=== PATIENT | male | born 1935 | race Caucasian/White ===

== ENCOUNTER 2016-11-24 06:21 | Emergency (ER) | payer OTHER ==
[~2016-11-24] VITALS: Ht 172.7 cm; Wt 112.9 kg
[~2016-11-24 06:21] MED LIST: ALLOPURINOL100 MG PO; AMLODIPINE BESYL5 MG PO; ARICEPT10 MG PO; ASPIRIN325 MG PO; ATIVAN1 MG PO; COLCRYS0.6 MG PO; DEPAKOTE ER250 MG PO; DOCUSATE SODIU100 MG PO; FISH OIL 1,0001 EAC2 PO; FLUOXETINE HCL20 MG PO; GLIPIZIDE10 MG PO; HUMULIN N100 UNIT/1 SUB-Q; IBUPROFEN400 MG PO; IPRAT-ALBUT 0.5-3 ML INH; LASIX40 MG PO; LEVOFLOXACIN250 MG PO; METOLAZONE2.5 MG PO; NEURONTIN400 MG PO; NORCO 5-325 TA1 EACH PO; OMEPRAZOLE20 M1 PO; POTASSIUM CHLO20 ME2 PO; PREDNISONE20 MG PO; SENNA8.6 MG PO; SYMBICORT 16010.2 GM INH; SYNTHROID200 MCG PO; TERAZOSIN HCL5 MG PO; TOPROL XL25 MG PO; VITAMIN C500 M1 PO; VITAMIN D1000 UNI1 PO; VITAMIN E1000 UNI1 PO; ZESTRIL20 MG PO; ZOCOR20 MG PO; ZOCOR80 MG PO
== END 2016-11-24 09:35 | disposition home or self-care (01) ==
LOC: ED 06:21
DX: M10.9 Gout, unspecified (principal); F03.90 Unspecified dementia, unspecified severity, without behavioral disturbance, psychotic disturbance, mood disturbance, and anxiety; Z86.73 Personal history of transient ischemic attack (TIA), and cerebral infarction without residual deficits; I10 Essential (primary) hypertension; E11.9 Type 2 diabetes mellitus without complications; Z87.01 Personal history of pneumonia (recurrent); J44.9 Chronic obstructive pulmonary disease, unspecified; F41.9 Anxiety disorder, unspecified; Z87.891 Personal history of nicotine dependence; Z95.1 Presence of aortocoronary bypass graft; Z79.52 Long term (current) use of systemic steroids; Z79.899 Other long term (current) drug therapy
CPT/HCPCS: 73110; 80053; 84550; 85025; 85651; 96361; 96374; 99283; J1885; J7040

== ENCOUNTER 2017-04-14 20:21 | Inpatient (IN) | payer MEDICARE ==
[~2017-04-14] VITALS: Ht 172.7 cm; Wt 100.9 kg
[~2017-04-14 20:21] MED LIST changes: +K-TAB10 MEQ PO; -OMEPRAZOLE20 M1 PO; +OMEPRAZOLE20 MG PO; -POTASSIUM CHLO20 ME2 PO
--- NOTE | 2017-04-15 03:46 | NUR ---
PT ARRIVED TO ROOM 128 AT 0005. DULCE (X2) AT BEDSIDE. ORIENTED TO ROOM AND ADMISSION ASSESSMENT/HX COMPLETED. 20G IV PLACED IN LAC. IV ABX STARTED, 2 FLUID BOLUSES INFUSED. APARICIO CATHETER PLACED AND URINE SENT TO LAB. PT CURRENTLY ALERT AND ORIENTED, STATES 'I FEEL HUNGRY, THAT MUST BE A GOOD SIGN'. OFFERED BROTH, SUGARFREE PUDDING AND TEA. PT DEMONSTRATES USE OF CALL LIGHT.
--- NOTE | 2017-04-15 04:16 | NUR ---
PT MOSLTY SLEEPY, BUT WAKENS EASILY WHEN TOUCHED FOR ASSESSMENT. ATE PUDDING DRANK TEA EARLIER. UPON ADMISSION, HE DRANK COCOA SUGAR FREE WELL BROTH. CHOSES WATER WITHOUT ICE AT THIS TIME. COUGHING NON PRODUCTIVE OFF AND ON. CURRENT SATS 93 ON 8 L NC.
--- NOTE | 2017-04-15 05:00 | NUR ---
PT HOLLERED OUT "IS ANYONE OUT THERE", WANTED TO GET UP TO HAVE A BM. WITH THE ASSISTANCE OF 2 HE GOT UP. WAS UNSTEADY ON FEET, BUT DID NOT HAVE INCREASE IN RESPIRATIONS WHEN UP. DID NOT HAVE A BM, ASSISTED BACK TO BED. NO OTHER NEEDS AT THIS TIME.
--- NOTE | 2017-04-15 08:25 | NUR ---
BRUSHED PT DENTURES AND HE PLACED THEM BACK IN HIS MOUTH. PT ABLE TO WASH FACE WITH WARM WASH CLOTH. PT REQUESTED PANTS, ASSISTED TO GET PANTS ON, TWO PERSON ASSIST UP TO CHAIR. PT ORDERED BREAKFAST. COFFEE GIVEN. PT LATESHA MISS. RIOJAS IS AT THE BEDSIDE. PT DENIES PAIN, NAUSEA, AND SOB AT THIS TIME. PT IS ALERT AND ORIENTED X3, NOT ORIENTED TO YESTERDAY'S EVENTS THAT LED UP TO HIM BEING HOSPITALIZED. PT COOPERATIVE AND POLITE. VITALS WNL AT THIS TIME.
--- NOTE | 2017-04-15 08:57 | NUR ---
PT SITTING UP IN CHAIR EATING BREAKFAST. SPUTUM SAMPLE SENT TO LAB. PT ALERT AND ORIENTED X3 AT THIS TIME. PT STATES "I'M JUST WORKING ON MY BREAKFAST".
--- NOTE | 2017-04-15 09:59 | NUR ---
IV SITES INTACT, NO REDNESS OR SWELLING NOTED, FLUSH EASILY, PT DENIES PAIN AT EITHER SITE. PT CURRENTLY IN BED, WAITING FOR TRACING LATHE SET UP OPERATOR TO ARRIVE. PT DENIES PAIN, NAUSEA, AND SOB. VITALS WNL. PT THOUGHT HE WAS IN THE HOSPITAL IN [place], HOWEVER REMEMBERS . PT AGREES TO A SHOWER LATER TODAY.
--- NOTE | 2017-04-15 11:12 | NUR ---
PT UP TO TOILET, HAD SMALL LIQUID STOOL.
--- NOTE | 2017-04-15 12:00 | NUR ---
PT TAKEN TO SHOWER VIA SHOWER CHAIR. FULL SHOWER, SHAMPOO, TAE CARE AND SKIN CARE DONE. PT BROUGHT BACK TO ROOM, LOTION APPLIED TO LOWER LEGS, ASSISTED PT TO SHAVE FACE, PT ABLE TO COMB OWN HAIR. PT IN CLEAN GOWN AND DEPENDS. APARICIO CATH IN PLACE. PT ASSISTED TO CHAIR. VITALS WNL. LINENS ON BED CHANGED. LUNCH ORDERED FOR PT. PT DENIES NAUSEA, PAIN, AND SOB. PT STATES "I FEEL LIKE A NEW MAN".
--- NOTE | 2017-04-15 13:09 | NUR ---
IV SITES INTACT, NO REDNESS OR SWELLING NOTED, FLUIDS INFUSE EASILY, PT DENIES PAIN WITH FLUSH. PT AMBULATED TO TOILET WITH STANDBY ASSIST AND WALKER. PT THEN AMBULATED BACK TO BED. PT DENIES PAIN, NAUSEA, AND SOB AT THIS TIME. PT ABLE TO EAT 80% OF HIS LUNCH. VITALS WNL.
--- NOTE | 2017-04-15 14:05 | NUR ---
CAREGIVER/GRANDAUGHTER AT THE BEDSIDE AT THIS TIME. CHERRY PIZANO [facility] PLANNING DISCUSSING OPTIONS WITH PT AND FAMILY.
--- NOTE | 2017-04-15 14:09 | NUR ---
pt up ambulating to the toilet with walker and standby assist. pt alert and oriented x3. pt unable to have a BM. pt abulated back to chair. vitals wnl at this time.
--- NOTE | 2017-04-15 15:10 | NUR ---
PT BACK TO BED WITH ASSISTANCE OF CAREGIVER. PT DENIES PAIN, NAUSEA, AND SOB AT THIS TIME. PT DENIES NEEDS AT THIS TIME.
--- NOTE | 2017-04-15 16:12 | NUR ---
IV SITES INTACT, NO REDNESS OR SWELLING NOTED, PT DENIES PAIN WITH FLUSH OR INFUSION OF FLUID.
--- NOTE | 2017-04-15 16:17 | NUR ---
pt up to chair from bed with one person standby assist and walker. pt denies pain, nausea, and sob. pt alert and oriented. pt gave order for dinner. vitals wnl at this time.
--- NOTE | 2017-04-15 17:29 | EKG ---
[facility] [address] [place] [address] Signed Sinus rhythm with sinus arrhythmia with occasional premature ventricular complexes Incomplete left bundle branch block Nonspecific ST and T wave abnormality Prolonged QT Abnormal ECG When compared with ECG of 27-NOV-2015 12:42, Nonspecific T wave abnormality, worse in Inferior leads T wave inversion now evident in Lateral leads Confirmed by TAMMI DAVIS MD ([id number]) on 04/15/2017 5:29:41 PM Electronically Signed By: TAMMI DAVIS MD 04/15/17 1729 PATIENT NAME: ROSY CERON Electrocardiogram DATE OF : 31 PHYSICIAN: TAMMI DAVIS MD REPORT #: [id number] REPORT IS CONFIDENTIAL AND NOT TO BE RELEASED WITHOUT AUTHORIZATION
--- NOTE | 2017-04-15 17:45 | NUR ---
PT ALESSANDRA RAMSAY'D, PT JERMAINE WELL. IV FLUIDS TURNED TO 75 ML/HR PER . FULL REPORT GIVEN TO KARRIE DAY.
--- NOTE | 2017-04-15 18:00 | NUR ---
PT TRANSFERED TO ROOM 115, ALL PERSONAL BLONGINGS WENT WITH PT.
--- NOTE | 2017-04-15 18:10 | NUR ---
PT ARRIVED FROM CCU. PT UNSURE OF WHERE HE IS OR WHY. PT REORINTED AND INSTRUCTION GIVEN ABOUT THE NEW ROOM. DAUGHTER AND GRANDAUGHER WITH PT. PT DEMONSTATES USE OF CALL LIGHT. PT EATING DINNER. ASSESSMENT DONE. WARM BLANKET PROVIDED. REPORT TAKEN FROM CCU RN. PT STATES NO ADDITIONAL REQUESTS OR COMPLAINTS AT THIS TIME. PT UP TO CHAIR. CALL LIGHT WITHIN REACH.
--- NOTE | 2017-04-15 18:42 | NUR ---
PT TRANSFERED TO [facility] FROM CCU AT 1800. PIV IN RAC AND LUQ. RAC INFUSING NS AT 75ML/HR. PT ON ADA DIET. FWW AND ONE PERSON STAND BY ASSIST. PT ON 6L HUMIDIFIED O2 BY NC. PT INCONTINANT, ALESSANDRA RAMSAY'D TODAY. PULL UP IN PLACE. PT DISORIENTED TO PLACE AND SITUATION, FREQUENT REORIENTATION NEEDED. PT OTHER [place] PLEASENT AND PARITICIPATING IN CARE. SEIZURE MEDICATION ORDERED FOR TONIGHT.
--- NOTE | 2017-04-15 20:08 | NUR ---
PT COUGHED UP BLOODY SPUTUM, DR NOTIFIED, ORDER SAMPLE TO BE CULTURED. SAMPLE SENT TO LAB. REQUESTED AND RECEIVED FROM SURVEY AND MAPPING TECHNICIAN, PUNESTOR, AND SUGAR FREE HOT COCOA. PT REQUESTED NEAR 1914 TO GO TO BED, 2 RN'S ASSISTED.
--- NOTE | 2017-04-15 20:17 | NUR ---
NOTIFIED DR. DAVIS REGARDING PATIENT HAVING BLOODY SPUTUM. RECEIVED ORDER FOR SPUTUM CULTURE TO BE COLLECTED.
--- NOTE | 2017-04-15 20:39 | NUR ---
ASSISTED PATIENT TO BATHROOM WITH 1PA/FWW/NON-SLIP SOCKS. TOLERATING AMBULATION WELL. ONCE BACK IN BED, PATIENT RR IS 24, RECOVERS QUICKLY. DENIES FURTHER NEEDS AT THIS TIME. CALL LIGHT WITHIN REACH.
--- NOTE | 2017-04-16 02:20 | NUR ---
ASSISTED PATIENT TO BATHROOM WITH 1PA/FWW. TOLERATED WELL, GAIT UNSTEADY AT TIMES. NOW RESTING IN BED COMFORTABLY. DENIES FURTHER NEEDS. ASSESSMENT AND VITALS DONE. CALL LIGHT WITHIN REACH, BED ALARM ON.
--- NOTE | 2017-04-16 03:47 | NUR ---
ASSISTED PATIENT TO BATHROOM WITH 1PA/FWW. NOW RESTING IN BED AGAIN, BREATHING IS EVEN AND UNLABORED. DENIES FURTHER NEEDS. CALL LIGHT WITHIN REACH, BED ALARM ON.
--- NOTE | 2017-04-16 04:55 | NUR ---
PATIENT'S NIGHT WAS UNEVENTFUL. HE HAS BEEN RESTING OFF AND ON THROUGHOUT NIGHT. VSS, URINE OUTPUT QS, NO COMPLAINTS OF PAIN. ALERT AND ORIENTED, CAN BECOME CONFUSED AT TIMES, REQUIRES BED ALARM. LUNGS HAVE CRACKLES IN BASES BILATERALLY, REQUIRES 5-6L O2. PATIENT IS A 1PA/FWW, HAS IV FLUIDS INFUSING. NO ACUTE CHANGES FROM BEGINNING OF SHIFT.
--- NOTE | 2017-04-16 05:43 | NUR ---
PATIENT RESTING COMFORTABLY IN BED, BREATHING IS EVEN AND UNLABORED. DENIES NEEDS AT THIS TIME. CALL LIGHT WITHIN REACH, BED ALARM ON.
--- NOTE | 2017-04-16 05:51 | NUR ---
ASSISTED PATIENT TO THE BATHROOM USING FWW THEN TO CHAIR. PATIENT DID ORAL AND DENTURE CARE. CALL LIGHT WITHIN REACH.
--- NOTE | 2017-04-16 07:45 | NUR ---
Patient sitting up in chair ready for breakfast. hands and face washed. RN and student nurse in room. warm blanket given. no other needs at this time.
--- NOTE | 2017-04-16 07:47 | NUR ---
MORNING ASSESSMENT AND CBG DUE. THIS RN TO ROOM TO ASSIST STUDENT NURSE WITH CBG. PT UP TO CHAIR. PT PLEASENT THIS MORNING AND STATES "MY APPITITE IS MUCH BETTER." BREAKFAST ORDERED. ASSESSMENT DONE. MEDICATIONS GIVEN ORDERED. PT ASSISTED UP TO REST ROOM AND BACK TO CHAIR WITHOUT INCIDENT. PT VISITING WITH GRANDDAUGHTER. CHAIR ALARM ON. CALL LIGHT WITHIN REACH.
--- NOTE | 2017-04-16 09:15 | NUR ---
0900 MEDICATIONS DUE. PT UP IN CHAIR AND STATES IT IS UNCOMFORTALBE AND HE WOULD LIKE TO MOVE BACK TO BED. PT UP WITH FWW AND ONE PERSON ASSIST. PT ASSISTED TO RESTROOMM. PHYSICAL THERAPY SHOWS UP AND BEGINS TO WORK WITH PT IN ROOM. MEDICATIONS GIVEN (SEE MAR). PT CONTINUES WORKING WITH PHYSICAL THERAPY. CALL LIGHT WITHIN REACH. COFFEE PROVIDED. NO ADDITIONAL REQUESTS OR COMPALINTS AT THIS TIME.
--- NOTE | 2017-04-16 09:38 | NUR ---
PT BACK TO BED, READING NEWSPAPER. IV ABX INFUSING, IV FLUIDS DC'D PER ORDER. PT STATES NO REQUESTS OR COMPLAINTS AT THIS TIME. BED RAILS UP. CALL LIGHT WITHIN REACH. BED ALARM ON.
--- NOTE | 2017-04-16 09:49 | NUR ---
MD AT BEDSIDE FOR ROUNDS. MD STATES TO CONTACT FAMILY TO GET PTS CURRENT HOME MEDICATION LIST FOR MED RECONCILIATION.
--- NOTE | 2017-04-16 10:20 | NUR ---
CALLED LATESHA BE TO BRING IN PT MEDICATIONS FROM HOME. HAILE SAID SHE WOULD HAVE THE [facility] OVER THE NEW UPDATED LIST.
--- NOTE | 2017-04-16 10:50 | NUR ---
MEDICATIONS DUE. PT UP TO RESTROOM AND CHAIR WITH STUDENT NURSE. PT BACK TO CHAIR. PT DDENIES PAIN AND NAUSEA. MEDICATIONS GIVEN. PT BELONGINGS WITHIN REACH. FAMILY AT BEDSIDE. CHAIR ALARM ON. CALL LIGHT WITHIN REACH.
--- NOTE | 2017-04-16 11:27 | NUR ---
PATIENT SITTING IN RECLINER. GRANDDAUGHTER IS ON THE PHONE AND HER YOUNG DAUGHTER IS KEEPING PATIENT COMPANY. PATIENT IS ON AN 1800 [employer] DIABETIC DIET. HE IS EATING WELL, HAS A GOOD APPETITE. NO PROBLEMS CHEWING OR SWALLOWING. NO NUTRITION INTERVENTION NEEDED AT THIS TIME. CONTINUE IS.
--- NOTE | 2017-04-16 11:41 | NUR ---
LUNCH ARRIVED, CBG DUE. PT ASSISTED UP TO RESTROOM. VOIDS WITHOUT ISSUE. URINE IS PINK, SEDIMENT NOTED. PT BACK TO CHAIR WITHOUT ISSUE. MEDICAITONS GIVEN. FOCUSED ASSESSMENT DONE. PT EATING LUNCH. CHAIR ALARM ON. CALL LIGHT WITHIN REACH. PT REMAINS DISORINTED TO PLACE, TIME, AND SITUATION. PT REORIENTED. PT STATES HE IS "COMFORTABLE AND HAPPY." NO REQUESTS OR COMPLAINTS AT THIS TIME.
[2017-04-16] MEDS ORDERED: ASPIRIN EC81 MG PO (12:27)
[2017-04-16] MEDS ORDERED: SYNTHROID112 MCG PO (12:39)
[2017-04-16] MEDS ORDERED: VITAMIN B-12500 MCG PO (12:40)
--- NOTE | 2017-04-16 13:10 | NUR ---
MED REC COMPLETE WITH [facility] REFILL HISTORY. PATIENT NO LONGER TAKES BREATHING MEDICATIONS.
--- NOTE | 2017-04-16 14:31 | NUR ---
THIS RN TO ROOM TO ASSIST STUDENT NURSE WITH ADL ACTIVITIES. ALDS PERFORMED. PT BACK TO CHAIR. O2 ON 6L NC. FEET ELEVATED. PT WORKING WITH INCENTIVE SPIROMETER. PT STATES NO ADDITIONAL REQUESTS OR COMPLAINTS AT THIS TIME. CALL LIGHT WITHIN REACH. CHAIR ALARM ON.
--- NOTE | 2017-04-16 15:00 | NUR ---
AFTERNOON ASSESSEMENT DUE. PT UP TO CHAIR. O2 IN PLACE. PT DENIES PAIN AND NAUSEA. ASSESSMENT DONE. PT TOLERATED WELL. PT REPORTS FEELING LIKE "I CAN BREATH BETTER." PT REMAINS UP TO CHAIR. WATER AND SODA PROVIDED. FEET ELEVATED. O2 ON. CALL LIGHT WITHIN REACH. CHAIR ALARM ON.
--- NOTE | 2017-04-16 15:17 | NUR ---
THIS RN CALLED TO ROOM BY STUDENT RN. STUDENT RN ASSISTING PT UP TO VOID. SCANT AMMOUNT OF BLOOD NOTEDED IN URINE INCLUDING TWO SAND SIZE CLOTS. PT DENIES PAIN WITH VOIDING AND DENIES HX OF HEMORRHOIDS. PT ASSISTED BACK TO CHAIR. NOTIFIED. CHAIR ALARM ON. CALL LIGHT WITHIN REACH.
--- NOTE | 2017-04-16 16:00 | NUR ---
PATIENT REMOVED CHAIR ALARM. GROUNDSKEEPER RESPONDED TO THE ALARM. THIS GROUNDSKEEPER ASSISTED PATIENT TO RESTROOM 1PERSON WITH FWW. ASSISTED PATIENT BACK TO CHAIR AND IS NOW RESTING. NO OTHER NEEDS AT THIS TIME.
--- NOTE | 2017-04-16 16:43 | NUR ---
CBG DUE. PT UP TO RESTROOM WITH 1 PERSON AND FWW ASSISST. PT ABLE TO VOID. URINE PINK TINGED. NO EVIDENCE OF CLOTS. PT BACK TO CHAIR WITHOUT INCIDENT. MEDICATIONS GIVEN (SEE MAR). PT READING NEWSPAPER. CHAIR ALARM ON. NO REQUESTS OR COMPLAINTS AT THIS TIME. CALL LIGHT WITHIN REACH.
--- NOTE | 2017-04-16 16:48 | NUR ---
PT HERE FOR SEPSIS R/T PNEUMONIA. 1PA/FWW. ADA DIET, TOLERATING WELL. I/O'S WNL. POTASSIUM GIVEN TODAY FOR LAB VALUE OF 3.4 PT REMAINS ON 6L HUMIDIFIED O2. PHYSICAL THERAPY EVALUATION TODAY. BED/CHAIR ALARM. PT INCONSISTANT WITH CALLING FOR HELP WHEN NEEDING TO VOID/AMBULATE. IV FLUIDS DC'D TODAY. PIV, SL, IN RIGHT AC AND LEFT UPPER ARM. SCANT AMOUNT OF BLOOD WITH 2 SAND SIZE CLOTS NOTED IN URINE TODAY. MD AWARE. CONTINUE TO MONITOR.
--- NOTE | 2017-04-16 17:00 | NUR ---
THIS OFFBEARER CHECKED ON PATIENT. PATIENT HAD UNHOOKED HIS CHAIR ALARM CRAWLED OVER FOOT REST ON CHAIR AND WALKED TO BATHROOM ON HIS OWN WITH NO WALKER. THIS OFFBEARER APPLIED OXYGEN BACK ON PATIENT AND ASSISTED HIM BACK TO CHAIR WITH CHAIR ALARM. RN NOTIFIED.
--- NOTE | 2017-04-16 17:38 | NUR ---
THIS RN TO ROOM FOR AFTERNOON VITALS SIGNS. DIRECTOR OF CUSTOMER SERVICE PRESENT. DIRECTOR OF CUSTOMER SERVICE REPORTS PT HAD REMOVED HIS CHAIR ALARM ON HIS OWN AND WAS UP IN BATHROOM WITH HIS OXYGEN OFF. CHARGE NURSE NOTIFIED. PT TRANSFERED TO ROOM CLOSER TO NURSES STATION. VITALS TAKEN. PT DEMONSTARTES USE OF CALL LIGHT. CHAIR ALARM ON. CALL LIGTH WITHIN REACH.
--- NOTE | 2017-04-16 17:46 | NUR ---
PTS GRANDDAUGHTER (MARTIN) CALLED AND UPDATED REGARDING PT STATUS AND MOVE TO A NEW ROOM. MARTIN STATES HER QUESTIONS WERE ANSWERED AND THAT SHE WILL CALL AND UPDATE THE REST OF THE FAMILY.
--- NOTE | 2017-04-16 19:35 | NUR ---
RECEIVED REPORT FROM RN. PATIENT IS RESTING COMFORTABLY IN CHAIR, BREATHING IS EVEN AND UNLABORED. ON 6L O2 VIA NC. DENIES NEEDS AT THIS TIME. CALL LIGHT WITHIN REACH, CHAIR ALARM ON.
--- NOTE | 2017-04-16 22:21 | NUR ---
HELPED PT TO RESTROOM 1PA WITH WALKER. PT DENIES FURTHER REQUESTS AT THIS TIME. BED ALARM IS ON AND CALL LIGHT IS WITHIN REACH.
--- NOTE | 2017-04-16 22:27 | NUR ---
PATIENT RESTING COMFORTABLY IN BED, BREATHING IS EVEN AND UNLABORED. DENIES NEEDS AT THIS TIME. ASSESSMENT DONE, MEDICATIONS GIVEN. CALL LIGHT WITHIN REACH, BED ALARM ON.
--- NOTE | 2017-04-17 00:28 | NUR ---
PATIENT RESTING COMFORTABLY IN BED, BREATHING IS EVEN AND UNLABORED. CALL LIGHT WITHIN REACH, BED ALARM ON.
--- NOTE | 2017-04-17 00:45 | NUR ---
ASSISTED PATIENT TO BATHROOM WITH 1PA/FWW. GAIT STEADY. NOW SITTING ON EDGE OF BED, PER PATIENT'S REQUEST. DENIES FURTHER NEEDS. CALL LIGHT WITHIN REACH, WITHIN VIEW OF RN.
--- NOTE | 2017-04-17 02:00 | NUR ---
ASSISTED PATIENT TO BATHROOM, 1PA/FWW. NOW RESTING COMFORTABLY IN BED, BREATHING IS EVEN AND UNLABORED. DENIES NEEDS AT THIS TIME. CALL LIGHT WITHIN REACH, BED ALARM ON.
--- NOTE | 2017-04-17 05:11 | NUR ---
PATIENT RESTING COMFORTABLY IN BED, BREATHING IS EVEN AND UNLABORED. CALL LIGHT WITHIN REACH, BED ALARM ON.
--- NOTE | 2017-04-17 05:57 | NUR ---
PATIENT RESTING COMFORTABLY IN BED, BREATHING IS EVEN AND UNLABORED. DENIES NEEDS AT THIS TIME. CALL LIGHT WITHIN REACH, BED ALARM ON.
--- NOTE | 2017-04-17 07:25 | NUR ---
BEDSIDE HANDOFF REPORT RECEIVED FROM AIRPLANE PILOT RN. PT RESTING IN BED. PT DENIES OTHER NEEDS AT THIS TIME, BED ALARM ON.
--- NOTE | 2017-04-17 07:50 | NUR ---
PATIENT ASSESSMENT DONE. PATIENT ACCU CHECK DONE. BLOOD SUGAR 104 ML/DG. NO INSULIN REQUIRED. BREAKFAST GIVEN. PATIENT ATE 85% INDEPNEDNETLY. PATIENT CALL LIGHT IN REACH.
--- NOTE | 2017-04-17 08:20 | NUR ---
PATIENT UP TO BATHROOM. STUDENT NURSE IN ROOM ASSISTING WITH PATIENT.
--- NOTE | 2017-04-17 08:50 | NUR ---
ASSISTED PATIENT TO BATHROOM WITH STAND BY ASSIST WHILE HE AMBULATED WITH FROUNT WHEEL WALKER. PATIENT VOIDED 400ML OF CLEAR, YELLOW URINE. PATIENT AMBULATED TO SINK WITH WALKER TO SHAVE AND WASH HANDS. PATIENT AMBULATED WITH FRONT WHEEL WALKER TO BESIDE CHAIR WITH STAND BY ASSIST WITHOUT DIFFICULTY. PATIENT CHAIR ALARM ATTACHED. PATIENT CALL LIGHT IN REACH.
--- NOTE | 2017-04-17 09:10 | NUR ---
PATIENTS MORNING MEDICATIONS GIVEN. GRANDDAUGHTER AND GREAT GRANDDAUGHTER IN ROOM. LOVENOX WITHHELD DUE TO PLATELT COUNTS BEING 90,000. PATIENT VISITING WITH FAMILY. DR. DAVIS IN ROOM. PATIENT IN BEDISIDE CHAIR. THERE ARE NO COMPLIANTS AT THIS TIME. PATIENT CALL LIGHT IN REACH.
--- NOTE | 2017-04-17 09:30 | NUR ---
PATIENT SITTING UP IN CHAIR. RN AND STUDENT NURSE IN ROOM TO PASS MEDS. NO OTHER NEEDS AT THIS TIME.
--- NOTE | 2017-04-17 09:45 | NUR ---
PT SITTING IN CHAIR. PT DENIES PAIN. PT ON 6L NC, LUNG SOUND WITH CRACKLES, CLEARED WITH PRODUCTIVE COUGH, DENIES SOB. PTTOLERATING ADA DIET, DENIES NAUSEA. PT CMS INTACT, EDEMA TO RLE 2+, PULSES PALPABLE. IV X2 TO RIGHT ARM, SALINE LOCKED. GRANDDAUGHTER AT BEDSIDE. PT DENIES NEEDS AT THIS TIME.
--- NOTE | 2017-04-17 10:00 | NUR ---
PATIENT SITTING IN BEDSIDE CHAIR EYES CLOSED WITH A EVEN AND UNLABORED RISE AND FALL IN CHEST. PATIENT WATER REFILLED. PATIENT CALL LIGHT WITHIN REACH PATIENT RESPONDES TO SENIOR NAVAL PARACHUTIST AND HAS NO C/O AT THIS TIME.
--- NOTE | 2017-04-17 11:46 | NUR ---
patient sitting up in chair eating lunch. call button in reach. No needs at this time.
--- NOTE | 2017-04-17 12:45 | NUR ---
PATIENT RESTING EYES WITH EVEN AND UNLABORDED BREATHING. PATIENT FINISHED WITH LUNCH AND ATE 90% INDEPENDETLY. PATIENT REPONDED TO [employer] WITH TACTILE AND VERBAL STIMULI. ASSITED PATIENT WITH IS ABLE TO GET TO 1250 ML OF AIR FOR 2 REPS. PATIENT LUNG SOUNDS COARSE CRACKLES BILATERAL IN ALL REYNOSO. ASSISTED PATIENT TO BATHROOM WITH STAND BY ASSIST WITH FRONT WHEEL WALKER. PATIENT VOIDED 100 ML OF YELLOW, CLEAR URINE. PATIENT AMBULATED BACK TO BESIDE CHAIR WITHOUT DIFFICULTY. PATIENT CHAIR ALARM ATTACHED. PATIENT DENIES C/O AT THIS TIME. CALL LIGHT IN REACH.
--- NOTE | 2017-04-17 13:23 | NUR ---
ASSITED PHYSICAL THERAPY WITH AMBULATION. PATIENT AMBULATED 119 FEET IN CONTRERAS. PATIENT TOLERATED AMBULATION WELL WITH FRONT WHEEL WALKER AND ONE REST BREAK OF STANDING. PATIETN AMBULATED BACK TO ROOM TO BEDSIDE CHAIR. CHAIR ALARM ATTACHED. 6 LITERS OF NC SET. CALL LIGHT IN REACH.
--- NOTE | 2017-04-17 14:45 | NUR ---
PT SITTING IN CHAIR. PT LUNG SOUNDS CLEAR WITH FINE CRACKLES TO LLL, PT CONTINUES TO BE ON 6L NC, ATTEMPT TO WEAN TOLERATED. PT WITH MILD EDEMA TO RLE. IV ABX INFUSING. NO ACUTE CHANGES AT THIS TIME. PT DENIES OTHER NEEDS.
--- NOTE | 2017-04-17 14:45 | NUR ---
ASSISTED PATIENT TO BATHROOM WITH STANDY BY ASSIST AND FRONT WHEEL WALKER. PATIENT VOIDED 300ML OF CLEAR YELLOW URINE. PATIENT AMBULATED BACK TO BESIDE CHAIR. PATIENT TOLERATED AMBULATION WELL. PATIENT BEDCHAIR ALARM ATTACHED. ASSISTED PATIENT WITH IS 750 ML OF AIR AND ACAPELLA. LUNG SOUNDS CLEAR IN UPPER LOBES BILATERALY AFTER COUGHIN. LOWER LOBES HAVE COARSE CRACKLES BILATERALLY. PATIENT DENIES C/O AT THIS TIME. CALL LIGHT WITHIN REACH.
--- NOTE | 2017-04-17 15:08 | NUR ---
STUDENT NURSE STATED THAT PATIENT SHAVED AND HAD ORAL CARE. SHE STATED THAT LINENS WERE CLEAN. SHE STATED ALSO THAT THE PATIENTS GRANDDAUGHTER WAS HELPING WITH THE ORAL CARE.
--- NOTE | 2017-04-17 15:43 | NUR ---
PATIENT UP TO BATHROOM. THIS SOUND TRUCK OPERATOR ASSISTED PATIETN WITH BATH AND TAE CARE. CLEAN GOWN AND LINENS. PATIENT BACK TO CHAIR WITH ONE PERSON ASSIST WITH FWW. PATIENT SOUNDS WHEEZY WHILE WALKING. RT IN ROOM TO GIVE PATIENT A NEB TREATMENT. CALL BUTTON IN REACH. WARM BLANKET GIVEN AND FRESH ICE WATER BY SANDOR DOMÍNGUEZ. NO OTHER NEEDS AT THIS TIME.
--- NOTE | 2017-04-17 16:16 | NUR ---
PT GIVEN 5 MG COUMADIN, DOSE VERIFIED WITH UNDER PRESSER BECKY. PT EDUCATED ON INDICATIONS AND SIDE EFFECTS OF MEDICATION. PT SITTING IN CHAIR, CHAIR ALARM ON. PT DENIES OTHER NEEDS AT THIS TIME.
--- NOTE | 2017-04-17 17:38 | NUR ---
PT ON 6L NC, ATTEMPT TO WEAN, LUNG SOUND CLEAR WITH CRACKLES TO LEFT LOWER LOBE. PT STARTED ON COUMADIN AND LOVENOX DOSE INCREASED, PT WILL GO HOME ON LOVENOX BRIDGE THERAPY, GRANDDAUGHTER AGREEABLE TO DO INJECTIONS, WILL PREFORM EDUCATION WITH MORNING DOSE. PT UP WITH SBA WITH FWW. VANCO DOSE ADJUSTED TO ONCE DAILY. IV SITES PATENT. VOIDING QS, HAD BM TODAY.
--- NOTE | 2017-04-17 18:11 | NUR ---
PATIENT ASSISTED FROM BATHROOM TO CHAIR. PATIENT NOW IN CHAIR RESTING. VALVE SETTER GOT SOME COLORING PAGES AND CRAYONS FOR PATIENT. CHAIR ALARM ON PATIENT. FRESH ICE WATER. PATIENTS GRANDDAUGHTER IN ROOM. CALL LIGHT WITHIN REACH. NO OTHER NEEDS AT THIS TIME.
--- NOTE | 2017-04-17 19:59 | NUR ---
up to bed from chair, O2 %LNC in place, required 1 person assist, tolerated well
--- NOTE | 2017-04-17 21:00 | NUR ---
PT IN BED AWAKE . TOOK TO THE BR. EMPTYED GARBAGE.
--- NOTE | 2017-04-17 21:18 | NUR ---
up to brp, one assist and fww, voided, back to bed. O2 5L NC, tolerated well
--- NOTE | 2017-04-17 21:40 | NUR ---
PT LAYING IN BED, APPEARED ASLEEP WHEN ENTERING ROOM. PT WOKE EASILY TO VOICE. MEDS GIVEN. PT ALERT AND ORIENTED AT THIS TIME. GAVE SF BRITTNEY PUDDING PER PT REQUEST. CALL LIGHT AND BED ALARM ACTIVATED. NO FURTHER NEEDS. CALL LIGHT IN REACH.
--- NOTE | 2017-04-18 00:45 | NUR ---
PT UP TO BATHROOM TO VOID, ALSO INCONTINENT OF URINE, NEW ATTENDS IN PLACE. STANDBY ASSIST WITH FWW, TOLERATING WELL. SITTING UP AT BEDSIDE. GAVE BEEF BROTH PER PT REQUEST. O2 SAT 93% ON 6L VIA NC. NO FURTHER NEEDS. CALL LIGHT IN REACH.
--- NOTE | 2017-04-18 01:48 | NUR ---
PT AWAKE IN BED TOOK PT TO THE BR.
--- NOTE | 2017-04-18 02:12 | NUR ---
PT APPEARS TO BE SLEEPING. LIGHTS AND TV OUT IN ROOM.
--- NOTE | 2017-04-18 05:27 | NUR ---
PT UP TO RESTROOM TO VOID. NOW SITTING AT BEDSIDE. NO FURTHER NEEDS. PLEASENT DEMEANOR.
--- NOTE | 2017-04-18 06:24 | NUR ---
UNEVENTFUL NIGHT. SLEPT MOST OF THE SHIFT. UP A COUPLE OF TIMES SITTING AT BEDSIDE. PT SATS UPPER 80%'S TO LOW 90%'S ON 6L VIA NC. STANDBY ASSIST WITH FWW. PLEASENT DEMEANOR. PT COOPERATIVE. IV AND PO ANTIBIOTICS.
--- NOTE | 2017-04-18 06:55 | NUR ---
BEDSIDE HANDOFF REPORT RECEIVED FROM SEED PRODUCTION FIELD SUPERVISOR RN. PT SLEEPING, LEFT UNDISTURBED. BED ALARM IS ON.
--- NOTE | 2017-04-18 07:45 | NUR ---
PT REQUESTING TO GET OUT OF BED. PT ASSISTED TO BATHROOM, VOIDING WITHOUT DIFFICULTY. PT ASSISTED TO CHAIR FOR BREAKFAST. SBA WITH FWW. PT DENIES OTHER NEEDS AT THIS TIME.
--- NOTE | 2017-04-18 08:02 | NUR ---
DID BLOOD SUGAR CHECK. CHANGED HIS LINENS. BRUSHED HIS TEETH. NOW IS SITTING UP IN HIS CHAIR EATING BREAKFAST. SHOWER LATER.
--- NOTE | 2017-04-18 09:00 | NUR ---
PT SITTING IN CHAIR, GRANDDAUGHTER AT BEDSIDE. PT ON 5L NC, LUNG SOUNDS CLEAR WITH FINE CRACKLES TO LLL. PT DENIES PAIN. PT TOLERATING ADA DIET, BLOOD GLUCOSE 145 THIS MORNING, GIVEN 1 UNIT SS NOVOLOG. LOVENOX INJECTION TEACHING COMPLETED WITH LATESHA, VERBALIZED UNERSTANDING OF INSTRUCTIONS AND STATES SHE FEELS COMFORTABLE WITH INJECTIONS. CMS INTACT, 2+ EDEMA TO RIGHT LOWER LEG. PT DENIES OTHER NEEDS AT THIS TIME.
--- NOTE | 2017-04-18 10:06 | NUR ---
GOT PATIENT'S FAMILY A COUPLE OF GLASSES OF GRAPE JUICE.
[2017-04-18] MEDS ORDERED: ENOXAPARIN100 MG/1 M SUB-Q (10:16)
[2017-04-18] MEDS ORDERED: CLINDAMYCIN HC300 MG PO (10:16)
--- NOTE | 2017-04-18 10:26 | NUR ---
PATIENT REFUSED SHOWER TODAY. BECAUSE HE SAID HE TOOK ONE YESTERDAY.
[2017-04-18] MEDS ORDERED: COUMADIN5 MG PO (10:31)
--- NOTE | 2017-04-18 10:45 | NUR ---
PT ASSISTED TO WALK IN [place] FOR HOME O2 EVALUATION. PT REQUIRES 5L NC FOR AMBULATION. PT ASSISTED BACK TO BED, GRAND DAUGHTER AT BEDSIDE.
--- NOTE | 2017-04-18 12:30 | NUR ---
DISCHARGE INSTRUCTIONS COMPLETE WITH GRAND DAUGHTER. AWAITING INFUSION OF CEFEPIME TO BE COMPLETED FOR DSICHARGE. PT ATE LUNCH, BLOOD GLUCOSE 135, SS INSULIN HELD. PT DENIES OTHER NEEDS AT THIS TIME.
[2017-06-11] MEDS ORDERED: ASPIRIN EC81 MG (11:31)
[2017-06-11] MEDS ORDERED: FISH OIL 1,0001 EAC3 (11:34)
[2017-06-11] MEDS ORDERED: DONEPEZIL HCL10 MG (11:34)
[2017-06-11] MEDS ORDERED: LISINOPRIL20 MG (11:35)
[2017-06-11] MEDS ORDERED: METOPROLOL SUCC25 MG (11:36)
[2017-06-11] MEDS ORDERED: OMEPRAZOLE20 MG PO (11:36)
[2017-06-11] MEDS ORDERED: TERAZOSIN HCL5 MG (11:36)
[2017-06-11] MEDS ORDERED: VITAMIN D5000 UNIT (11:37)
== END 2017-04-18 13:50 | disposition home or self-care (01) | DRG 871 ==
LOC: ED 20:21 → CCU 23:27 → MS 04-15 18:00
PROVIDERS: ADMIT Internal Medicine
DX: A41.9 Sepsis, unspecified organism (principal); J18.9 Pneumonia, unspecified organism; J96.21 Acute and chronic respiratory failure with hypoxia; J13 Pneumonia due to Streptococcus pneumoniae; N17.9 Acute kidney failure, unspecified; I23.6 Thrombosis of atrium, auricular appendage, and ventricle as current complications following acute myocardial infarction; E11.9 Type 2 diabetes mellitus without complications; E03.9 Hypothyroidism, unspecified; E78.5 Hyperlipidemia, unspecified; K21.9 Gastro-esophageal reflux disease without esophagitis; G30.9 Alzheimer's disease, unspecified; F02.80 Dementia in other diseases classified elsewhere, unspecified severity, without behavioral disturbance, psychotic disturbance, mood disturbance, and anxiety; G40.909 Epilepsy, unspecified, not intractable, without status epilepticus; R65.20 Severe sepsis without septic shock; D69.6 Thrombocytopenia, unspecified; E87.6 Hypokalemia; E83.42 Hypomagnesemia; I25.2 Old myocardial infarction; Z79.01 Long term (current) use of anticoagulants; I25.10 Atherosclerotic heart disease of native coronary artery without angina pectoris; J44.9 Chronic obstructive pulmonary disease, unspecified; Z79.84 Long term (current) use of oral hypoglycemic drugs; Z95.1 Presence of aortocoronary bypass graft; F39 Unspecified mood [affective] disorder; Z87.891 Personal history of nicotine dependence; Z79.52 Long term (current) use of systemic steroids
CPT/HCPCS: 36415; 36600; 51702; 71045; 80053; 80069; 80164; 80202; 82570; 82803; 83605; 83735; 83880; 84300; 84484; 84540; 85025; 85610; 87040; 87070; 87205; 87449; 87899; 93005; 93010; 93306; 94640; 94668; 94761; 97110; 97116; 97161; 97162; J0692; J1650; J1956; J3370; J3475; J7030; J7060

== ENCOUNTER 2017-05-12 02:07 | Observation (INO) | payer OTHER ==
[~2017-05-12] VITALS: Ht 172.7 cm; Wt 95.1 kg
[~2017-05-12 02:07] MED LIST changes: +ASPIRIN EC81 MG PO; +CLINDAMYCIN HC300 MG PO; +COUMADIN5 MG PO; +ENOXAPARIN100 MG/1 M SUB-Q; +SYNTHROID112 MCG PO; +VITAMIN B-12500 MCG PO
--- NOTE | 2017-05-12 08:02 | NUR ---
PATIENT ARRIVES TO ROOM 130 AT 0720 FROM ER ON STRETCHER. PT ABLE TO SCOOT SELF OVER TO NEW CCU BED. PT HAS APARICIO CATHETER UPON ARRIVAL PLACED IN ER. PT'S HR NOTED TO BE FLUCTUATING FROM THE 50-70s. PT ON 4 L NC UPON ARRIVAL. TURNED DOWN TO 3 L SP02 NOTED TO BE 99%. PATIENT AWAKE, ALERT, AND CONVERSIVE BUT UNSURE OF THE YEAR OR MONTH. PT STATES, "I THINK I MUST HAVE PASSED OUT. WHEN DID I GET HERE?" PATIENT RE-ORIENTED TO PLACE AND EVENT AND TIME. BLOOD SUGAR CHECKED AT THIS TIME AND NOTED TO BE 52. PT GIVEN 6 OZ OF GRAPE JUICE AND SOME CORINE CRACKERS WITH PEANUT BUTTER. PT STILL AWAKE AND TALKATIVE, AND ENJOYING THE GRAPE JUICE. CBG TO BE CHECKED IN 15 MINUTES. IVF STARTED AT 125 ML/HR. CONTINUE TO MONITOR CLOSELY.
--- NOTE | 2017-05-12 08:29 | NUR ---
REPEAT CBG 62. PT GIVEN MILK AT THIS TIME. PT REPORTS FEELING A LITTLE LIGHT HEADED WHEN GETTING UP TO BSC TO HAVE A BM, BUT TOLERATING FAIR. PT STATES HE IS HAVING LOOSE BMs.
--- NOTE | 2017-05-12 09:00 | NUR ---
PATIENT GIVEN 1/2 AMP OF D50 AT THIS TIME. PT ALSO EATING HIS BREAKFAST AND TOLERATING. CONTINUE TO MONITOR.
--- NOTE | 2017-05-12 09:30 | NUR ---
PATIENT UP TO BSC TO HAVE ANOTHER LIQUID BM. PT TOLERATED HIS BREAKFAST WELL. CBG RECHECKED FOR [address] DAVIS NOW IN ROOM ASSESSING PATIENT. CONTINUE TO MONITOR.
--- NOTE | 2017-05-12 10:03 | NUR ---
PATIENT HAS NOW HAD 3 LIQUID BMS WHICH ARE COMPLETELY LIQUID AND HAVE SOME UNDIGEST FOOD PARTICLES IN THEM. THEY ARE ALSO FOUL SMELLING. STOOL SAMPLE COLLECTED AND SENT TO LAB. PT SITTING IN CHAIR WITH CALL LIGHT WITHIN REACH. PT USING CALL LIGHT APPROPRIATELY AND NOT GETTING UP BY HIMSELF. APARICIO D/C PER DR. DAVIS. CONTINUE TO MONITOR.
--- NOTE | 2017-05-12 11:48 | NUR ---
RECIEVED REPORT VIA TELEPHONE FROM BARB BUCHANAN.
--- NOTE | 2017-05-12 12:57 | NUR ---
PATIENT GIVEN BED BATH AND TOLERATED WELL. PT HAS MODERATE AMOUNT OF REDENNED AREA IN GROIN FROM HAVING DIARRHEA. PATIENT ALSO NOTED TO HAVE A 14 BEAT RUN OF VTACH AT 1202. PT WAS ASYMPTOMATIC WITH THIS. PT BACK UP IN CHAIR TO EAT LUNCH AND THEN TRANSFERRED OVER TO MED/SURG AT 1250 TO ROOM 121. REPORT GIVEN TO BARB LAU. CONTINUE TO MONITOR.
--- NOTE | 2017-05-12 12:57 | NUR ---
PT TO FLOOR VIA RECLINER, ACCOMPANIED BY BABR BUCHANAN AT 1248. PT UP TO BEDSIDE COMMODE TO VOID, HAS CALL LIGHT IN HAND.
--- NOTE | 2017-05-12 13:11 | NUR ---
PROVIDED PT WITH DIABETIC FRIENDLY HOT COCOA. PT SITTING UP IN RECLINER. PT ABLE TO STATE WHAT THE MONTH IS, BUT NOT YEAR. KNOWS HE IS IN A HOSPITAL IN [place], BUT NOT THE NAME OF THE HOSPITAL. ABLE TO TELL THIS RN THAT HE LIVES AT HOME WITH HIS GRANDDAUGHTER. DENIES PAIN. HAD A LIQUID BM.
--- NOTE | 2017-05-12 13:13 | NUR ---
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
--- NOTE | 2017-05-12 14:19 | NUR ---
PATIENT NEEDED TO USE THE COMMODE NURSE JUDI HELPED HIM TRANSFERRED I WAS A STANDBY HE WILL PUSH THE CALL LIGHT WHEN HE IS DONE
--- NOTE | 2017-05-12 14:27 | EKG ---
[facility] [address] [place] [address] Signed Sinus rhythm with frequent and consecutive premature ventricular complexes Incomplete left bundle branch block Minimal voltage criteria for LVH, may be normal variant Nonspecific ST and T wave abnormality Prolonged QT Abnormal ECG When compared with ECG of 14-APR-2017 20:39, No significant change was found Confirmed by TAMMI DAVIS MD ([id number]) on 05/12/2017 2:27:34 PM Electronically Signed By: TAMMI DAVIS MD 05/12/17 1427 PATIENT NAME: ROSY CERON Electrocardiogram DATE OF : 31 PHYSICIAN: TAMMI DAVIS MD REPORT #: [id number] REPORT IS CONFIDENTIAL AND NOT TO BE RELEASED WITHOUT AUTHORIZATION
--- NOTE | 2017-05-12 14:28 | EKG ---
[facility] [address] [facility] [place] [address] Signed Atrial fibrillation with slow ventricular response Nonspecific intraventricular block T wave abnormality, consider inferior ischemia Abnormal ECG When compared with ECG of 12-MAY-2017 02:15, (Unconfirmed) premature ventricular complexes are no longer present premature atrial complexes are now present Confirmed by TAMMI DAVIS MD ([id number]) on 05/12/2017 2:28:54 PM Electronically Signed By: TAMMI DAVIS MD 05/12/17 1428 PATIENT NAME: ROSY CERON Electrocardiogram DATE OF : 31 PHYSICIAN: TAMMI DAVIS MD REPORT #: [id number] REPORT IS CONFIDENTIAL AND NOT TO BE RELEASED WITHOUT AUTHORIZATION
--- NOTE | 2017-05-12 15:47 | NUR ---
PT'S BG WAS 332. NOTIFIED DR. DAVIS VIA TELEPHONE. RECIEVED ORDER TO D/C Q 2 HOUR ACCU CHECKS, START ACCU CHECKS WITH MEALS AND AT HS.
--- NOTE | 2017-05-12 16:38 | NUR ---
RECIEVED CALL FROM DR. DAVIS, WHO REPORTED THAT PT IS POSITIVE FOR C. DIFF. PLACED PT ON CONTACT PRECAUTIONS.
--- NOTE | 2017-05-12 17:12 | NUR ---
PT SITTING UP IN RECLINER, EATING DINNER. TOLERATING WELL AT THIS TIME. PERSONAL SUPPLIES AND CALL LIGHT IN REACH.
--- NOTE | 2017-05-12 18:18 | NUR ---
PATEINT NEEDED TO USE THE COMMODE, WE DID HIS VITAL SIGNS AND HE IS READY TO GET IN BED AND REST
--- NOTE | 2017-05-12 19:18 | NUR ---
RECEIVED REPORT FROM RN. PATIENT IS RESTING COMFORTABLY IN BED, BREATHING IS EVEN AND UNLABORED. DENIES NEEDS AT THIS TIME. CALL LIGHT WITHIN REACH.
--- NOTE | 2017-05-12 21:32 | NUR ---
PATIENT RESTING COMFORTABLY IN BED, BREATHING IS EVEN AND UNLABORED. DENIES NEEDS AT THIS TIME. CALL LIGHT WITHIN REACH.
--- NOTE | 2017-05-12 22:10 | NUR ---
PATIENT RESTING ON EDGE OF BED, BREATHING IS EVEN AND UNLABORED. DENIES NEEDS AT THIS TIME. MEDICATIONS GIVEN. CALL LIGHT WITHIN REACH.
--- NOTE | 2017-05-12 23:16 | NUR ---
ASSISTED PATIENT TO BATHROOM WITH 1PA/FWW. REQUIRES 1PA DUE TO UNSTEADY GAIT. NOW RESTING COMFORTABLY IN BED, BREATHING IS EVEN AND UNLABORED. DENIES FURTHER NEEDS AT THIS TIME. CALL LIGHT WITHIN REACH.
--- NOTE | 2017-05-13 00:53 | NUR ---
PATIENT RESTING COMFORTABLY IN BED, BREATHING IS EVEN AND UNLABORED. CALL LIGHT WITHIN REACH.
--- NOTE | 2017-05-13 01:34 | NUR ---
1 PA TO THE BEDSIDE COMMODE AND BACK IN BED USING WALKER. PATIENT STATED "WOKE UP HUNGRY" ASKED CRACKERS AND PEANUT BUTTER, GIVEN. PATIENT IS DANGLING BY THE BED EATING SNACKS. [facility]ACH.
--- NOTE | 2017-05-13 01:50 | NUR ---
PATIENT IS NOW LYING IN BED. CALL LIGHT IN REACH.
--- NOTE | 2017-05-13 02:39 | NUR ---
PATIENT RESTING COMFORTABLY IN BED, BREATHING IS EVEN AND UNLABORED. CALL LIGHT WITHIN REACH.
--- NOTE | 2017-05-13 04:25 | NUR ---
PATIENT RESTING COMFORTABLY IN BED, BREATHING IS EVEN AND UNLABORED. DENIES NEEDS AT THIS TIME. CALL LIGHT WITHIN REACH.
--- NOTE | 2017-05-13 05:41 | NUR ---
PATIENT'S NIGHT WAS UNEVENTFUL. HE HAS BEEN RESTING OFF AND ON THROUGHOUT SHIFT. VSS, URINE OUTPUT QS, NO COMPLAINTS OF PAIN. PATIENT HAD INFREQUENT LOOSE STOOL THIS SHIFT, BOWEL TONES ACTIVE. HAS BEEN ALERT AND ORIENTED X4, CALLS APPROPRIATELY. LUNGS ARE CLEAR, REMAINS ON 3L O2, WEARS O2 AT BASELINE. SCATTERED BRUISING NOTED. NO ACUTE CHANGES. IV FLUIDS INFUSING, 1PA/FWW DURING AMBULATION. REMAINS NORMAL SINUS RHYTHM THROUGHOUT SHIFT, INFREQUENT AND UNSUSTAINED EPISODES OF SINUS BRADYCARDIA NOTED. NO ACUTE CHANGES FROM BEGINNING OF SHIFT.
--- NOTE | 2017-05-13 05:41 | NUR ---
PATIENT RESTING COMFORTABLY IN CHAIR, BREATHING IS EVEN AND UNLABORED. O2 SATURATION IS 97% ON 3L O2 VIA NC. DENIES NEEDS AT THIS TIME. CALL LIGHT WITHIN REACH.
--- NOTE | 2017-05-13 08:23 | NUR ---
pt sitting in recliner after ambulating to bathroom one person standby assist with fww. breakfast set up on table for pt. pt reports no pain or nausea. good appetite this am.
--- NOTE | 2017-05-13 08:38 | NUR ---
PATIENT SITTING UP IN BEDSIDE RECLINER EATING BREAKFAST. RN IN ROOM. PATIENT GIVEN WARM WASH CLOTH FOR FACE AND HANDS. ORAL CARE SET UP IN BATHROOM FOR PATIENT TO USE AFTER BREAKFAST. FRESH ICEWATER ON BEDSIDE TABLE. CALL LIGHT IN REACH. NO OTHER NEEDS AT THIS TIME.
--- NOTE | 2017-05-13 09:15 | NUR ---
SPOKE WITH PATIENT AND GRANDDAUGHTER IN ROOM. BOTH ARE ANTICIPATING PATIENT RETURNING HOME TODAY. GRANDDAUGHTER (CARLOS) KNOWS OF NOTHING THEY NEED TO RETURN HOME AT THIS TIME.
--- NOTE | 2017-05-13 09:32 | NUR ---
PT UP TO BATHROOM WITH TRANSLATION DIRECTOR AT THIS TIME. FAMILY IN ROOM TO VISIT.
[2017-05-13] MEDS ORDERED: GLIPIZIDE10 MG PO (11:18)
[2017-05-13] MEDS ORDERED: LASIX40 MG PO (11:20)
[2017-05-13] MEDS ORDERED: VANCOMYCIN HCL125 MG PO ×2 (11:21→11:33)
--- NOTE | 2017-05-13 11:43 | NUR ---
RT IN ROOM WITH PATIENT DOING A BREATHING TREATMENT AT THIS TIME.
--- NOTE | 2017-05-13 12:20 | NUR ---
PT SITTING UP IN RECLINER FOR LUNCH, NO COMPLAINTS, GRANDDAUGHTER/CAREGIVER RESTIN ON ROOM COUCH
--- NOTE | 2017-05-13 13:33 | NUR ---
THIS REAL ESTATE VALUER ASSISTED PATIENT FROM THE CHAIR TO THE BATHROOM. 1 PERSON SBA WITH FWW. THEN HELPED HIM BACK TO HIS CHAIR. PATIENT DID ORAL CARE. PATIENT NOW RESTING IN CHAIR WATCHING TV AND EATING ICE CREAM. RN OKAYED. CALL LIGHT WITHIN REACH. NO OTHER NEEDS AT THIS TIME.
--- NOTE | 2017-05-13 14:05 | NUR ---
PT EDUCATION PROVIDED TO PATIENT AND CAREGIVER/ GRANDAUGHTER., NEXT DOSE LAST DOSE OF MEDICATIONS. FIRST WEEK OF VANCO GIVEN TO PATIENT FROM OUR PHARMACY THEN PT TO TAKE PAPER SCRIPT TO V.A. FOR REMAINDER OF COURSE OF ABX. DISCUSSED C.DIFF AND GAVE EDUCATION FOR HOME AND CLEANING. PT ACTIVITY TO BE TOLERATED AND TO HAVE BLOOD DRAWN ON SAT. FOR COUMADIN THERAPY. SIGNS/SYMPTOMS TO MONTIOR FOR NEED TO SEEK MEDICAL ATTENTION. NO OTHER QUESTIONS OR CONCERNS V/S STABLE. I.V. SITE REMOVED WNL, TIP INTACT.
[2017-06-11] MEDS ORDERED: ASPIRIN EC81 MG (11:31)
[2017-06-11] MEDS ORDERED: DONEPEZIL HCL10 MG (11:34)
[2017-06-11] MEDS ORDERED: FISH OIL 1,0001 EAC3 (11:34)
[2017-06-11] MEDS ORDERED: LISINOPRIL20 MG (11:35)
[2017-06-11] MEDS ORDERED: TERAZOSIN HCL5 MG (11:36)
[2017-06-11] MEDS ORDERED: METOPROLOL SUCC25 MG (11:36)
[2017-06-11] MEDS ORDERED: OMEPRAZOLE20 MG PO (11:36)
[2017-06-11] MEDS ORDERED: VITAMIN D5000 UNIT (11:37)
== END 2017-05-13 14:25 | disposition home or self-care (01) ==
LOC: ED 02:07 → MS 02:09 → ED 07:06 → CCU 07:06 → MS 12:48
PROVIDERS: ADMIT Internal Medicine
DX: A04.72 Enterocolitis due to Clostridium difficile, not specified as recurrent (principal); G93.41 Metabolic encephalopathy; F03.91 Unspecified dementia, unspecified severity, with behavioral disturbance; J96.11 Chronic respiratory failure with hypoxia; I24.0 Acute coronary thrombosis not resulting in myocardial infarction; E87.6 Hypokalemia; I48.2 Chronic atrial fibrillation; E11.649 Type 2 diabetes mellitus with hypoglycemia without coma; Z95.1 Presence of aortocoronary bypass graft; J44.9 Chronic obstructive pulmonary disease, unspecified; G47.33 Obstructive sleep apnea (adult) (pediatric); N18.3 Chronic kidney disease, stage 3 (moderate); I12.9 Hypertensive chronic kidney disease with stage 1 through stage 4 chronic kidney disease, or unspecified chronic kidney disease; Z79.01 Long term (current) use of anticoagulants; K21.9 Gastro-esophageal reflux disease without esophagitis; D63.1 Anemia in chronic kidney disease; E11.22 Type 2 diabetes mellitus with diabetic chronic kidney disease; E03.9 Hypothyroidism, unspecified; Z86.73 Personal history of transient ischemic attack (TIA), and cerebral infarction without residual deficits; E79.0 Hyperuricemia without signs of inflammatory arthritis and tophaceous disease; E78.5 Hyperlipidemia, unspecified; G40.909 Epilepsy, unspecified, not intractable, without status epilepticus; Z79.84 Long term (current) use of oral hypoglycemic drugs
CPT/HCPCS: 36415; 51702; 71045; 80048; 80053; 80164; 81001; 83036; 83735; 84484; 85025; 85610; 85730; 87045; 87046; 87205; 87493; 93005; 93010; 94640; 94668; 96361; 96374; 96375; 96376; 97116; 97161; 99291; 99292; G0378; G8978; G8979; G8980; J1610; J3475; J7030; J7120

== ENCOUNTER 2017-06-26 13:41 | Inpatient (IN) | payer MEDICARE ==
[~2017-06-26] VITALS: Ht 172.7 cm; Wt 93.2 kg
[~2017-06-26 13:41] MED LIST changes: +ASPIRIN EC81 MG; +DONEPEZIL HCL10 MG; +FISH OIL 1,0001 EAC3; +LISINOPRIL20 MG; +METOPROLOL SUCC25 MG; +TERAZOSIN HCL5 MG; +VANCOMYCIN HCL125 MG PO; +VITAMIN D5000 UNIT
[2017-06-26] MEDS ORDERED: IPRAT-ALBUT 0.5-3 ML INH (14:11)
[2017-06-26] MEDS ORDERED: SYMBICORT 16010.2 GM INH (14:18)
--- NOTE | 2017-06-26 17:10 | NUR ---
RECEIVED REPORT FROM KIP DAY IN EMERGENCY ROOM. ALL QUESTIONS ANSWERED.
--- NOTE | 2017-06-26 17:50 | NUR ---
PT SITTING UP IN RECLINER EATING DINNER NOW. WATCHING TELEVISION. ORIENTED X4. REPORTS GRANDDAUGHTER MANAGES MEDICATIONS AT HOME. WHEELCHAIR AND BELONGINGS AT BEDSIDE.
--- NOTE | 2017-06-26 18:03 | NUR ---
NEW ED ADMIT. SBA. 3L 02 VIA DE CHRONIC-- OXYMASK WHEN ASLEEP. ADA DIET. DISCOLORATIONG AND SLIGHT EDEMA IN BILAT LE. DOPPLER NEEDED FOR PEDAL PULSES. HX DEMENTIA, BUT ORIENTED X4. LIVES WITH GRANDDAUGHTER, HAILE, WHO MANAGES MEDICATIONS AT HOME. CHAIR/BED ALARM.
--- NOTE | 2017-06-26 18:37 | EKG ---
[facility] [address] [facility] [place] [address] Signed Atrial fibrillation Nonspecific intraventricular conduction delay Nonspecific T wave abnormality Abnormal ECG When compared with ECG of 12-MAY-2017 04:13, Previous ECG has undetermined rhythm, needs review QRS duration has decreased Confirmed by TAMMI DAVIS MD ([id number]) on 06/26/2017 6:37:28 PM Electronically Signed By: TAMMI DAVIS MD 06/26/17 1837 PATIENT NAME: OSMANYROSY DWYER Electrocardiogram DATE OF : 31 PHYSICIAN: TAMMI DAVIS MD REPORT #: [id number] REPORT IS CONFIDENTIAL AND NOT TO BE RELEASED WITHOUT AUTHORIZATION
[2017-06-26] MEDS ORDERED: COUMADIN5 MG PO (18:51)
[2017-06-26] MEDS ORDERED: WARFARIN SODIUM5 MG PO (18:52)
--- NOTE | 2017-06-26 18:52 | NUR ---
MED REC COMPLETE
--- NOTE | 2017-06-26 19:10 | NUR ---
BEDSIDE REPORT RECEIVED FROM BARB BORREGO. PT SITTING IN CHAIR, CHAIR ALARM IN PLACE, ON 3L OXYGEN BY NC. GIVEN DIET COKE REQUESTED. CALL LIGHT IN REACH.
--- NOTE | 2017-06-26 20:16 | NUR ---
ROUNDED CHARGE. PATIENT IS RESTING IN RECLINER. NO COMMENTS, QUESTIONS, OR CONCERNS. CALL LIGHT IN REACH. CHAIR ALARM IN PLACE FOR SAFETY.
--- NOTE | 2017-06-26 21:01 | NUR ---
PT ASSESSMENT COMPLETE, PT APPEARS TO BE SLEEPING, AWAKNES EASILY TO RN VOICE, ON 3L OXYGEN ON BY NC, LUNGS CLEAR BUL, COARSE ON EXPIRATION BILATERALLY IN BASES. PT DENIES SOB, DENIES ANY PAIN. CSM INTACT BUE, 1+ PITTING EDEMA NOTED BILATERALLY ON SHINS, FAINT PEDAL PULSES PALPATED BILATERALLY. BOWEL TONES ATIVE X 4, ABDOMEN DISTENDED, NONTENDER. PT ORIENTED TO PERSON, EVENT, NOT TO DATE OR PLACE, STATES "I'M IN ORIENT AT [facility]", REORIENTATION PROVIDED. SBA TO RESTROOM WITH FWW. PT INSTRUCTED TO USE CALL LIGHT WHEN FINISHED, VERBALIZES UNDERSTANDING. RN REMAINS IN ROOM FOR PT SAFETY.
--- NOTE | 2017-06-26 21:12 | NUR ---
BATHROOM CALL LIGHT ANSWERED, PT HAD 250 ML VOID. SBA WITH FWW BACK TO BED. PT GAIT STEADY WITH FWW. PT INSTRUCTED TO USE IS. 750 ML BEST EFFORT. PT SITTING AT SIDE OF BED ALSO USING CPT. CALL LIGHT IN REACH. BED ALARM ON.
--- NOTE | 2017-06-26 21:25 | NUR ---
CALL LIGHT ANSWERED, ASSISTED PT TO LIE DOWN IN BED, BED ALARM SET, PT ON 3L OXYGEN BY NC. NO ADDL REQUESTS. LIGHTS OFF IN ROOM. CALL LIGHT NEXT TO PT.
--- NOTE | 2017-06-26 22:42 | NUR ---
AROUND 1947 ASSISTED PATIENT FROM CHAIR TO BATHROOM AND TO BED USING WALKER. DENTURES SOAKING IN THE CONTAINER. BED ALARM ON. CALL LIGHT WITHIN REACH.
--- NOTE | 2017-06-26 23:55 | NUR ---
CHECKED ON PT, APPEARS TO BE SLEEPING AT THIS TIME, EYES CLOSED, BREATHING NON-LABORED, 3L OXYGEN BY NC ON. BED ALARM IN PLACE.
--- NOTE | 2017-06-27 01:43 | NUR ---
PT ASSESSMENT AND VITALS COMPLETE, VITALS WNL. PT SLEEPING, AWAKENS TO RN VOICE. ORIENTED TO PERSON, HOSPITAL NOT LOCATION, NOT TO DATE, REORIENTATION PROVIDED. LUNGS CLEAR WITH COARSE EXPIRATION BILATERALLY IN BASES, PT ON 3L OXYGEN BY NC. 1+ EDEMA NOTED BLE, FAINT PEDAL PULSES BILATERALLY. BOWEL TONES ACTIVE X 4, ABDOMEN DISTENDED, NON-TENDER W PALPATION. BED ALARM ON. URINAL EMPTIED AT THIS TIME, CALL LIGHT IN REACH.
--- NOTE | 2017-06-27 04:08 | NUR ---
CALL LIGHT ANSWERED, PT REQUESTING SNACK GIVEN DIABETIC GLUCERNA DRINK. BED ALARM IN PLACE. CALL LIGHT IN REACH.
--- NOTE | 2017-06-27 05:00 | NUR ---
PT UP IN CHAIR, APPEARS TO BE SLEEPING, EYES CLOSED, BREATHING NON-LABORED, OXYGEN 3L BY NC ON. CHAIR ALARM IN PLACE. CALL LIGHT WITH PT.
--- NOTE | 2017-06-27 05:33 | NUR ---
PT AMBULATING WELL W FWW, SBA TO RESTROOM AND UP TO CHAIR, DENIES SOB THROUGHOUT SHIFT. REC SCHEDULED DUONEBS, LUNGS CLEAR WITH COARSNESS NOTED BILATERALLY IN BASES. FAINT PEDAL PULSES PALAPATED, 1 + EDEMA BILATERALLY IN SHINS. CHAIR ALARM AND BED ALARM IN PLACE, PT USING CALL LIGHT APPROPRIATELY. ORIENTED TO PERSON, BUILDING, NOT PLACE OR DATE THROUGHOUT SHIFT.
--- NOTE | 2017-06-27 08:40 | NUR ---
PATIENT EATING BREAKFAST IN CHAIR, FAMILY IN ROOM. ROOM TIDIED AND CALL LIGHT IN REACH. NO OTHER NEEDS
--- NOTE | 2017-06-27 09:00 | NUR ---
PATIENT UP IN RECLINER EATING BREAKFAST AND FAMILY AT BEDSIDE. PATIENT DENIES ANY PAIN. ASSESSMENT DONE.
--- NOTE | 2017-06-27 09:35 | NUR ---
THIS ARTILLERY OR NAVAL GUNFIRE OBSERVER WAS NOTIFIED BY BARB LIEBERMAN THAT PATIENTS GRANDDAUGHTER/CAREGIVER WOULD LIKE TO ASSIST HIM IN SHOWER. PATIENT WAS ALREADY IN BATHROOM UNDRESS BY THE TIME THIS ARTILLERY OR NAVAL GUNFIRE OBSERVER NOTIIFED BARB SMYTH AND MADE IT INTO HIS ROOM. THIS ARTILLERY OR NAVAL GUNFIRE OBSERVER COVERED IV SITE. AND SET OUT CLEAN GOWN AND TOWELS. NO OTHER NEEDS AT [facility] TIME
--- NOTE | 2017-06-27 10:04 | NUR ---
PATIENT IN CHAIR AFTER SHOWER, THIS MUSICAL INSTRUMENT MAKER OR REPAIRER COMBED HIS HAIR AND DID VITALS AND I/OS. FAMILY IN ROOM. CALL LIGHT IN REACH. BATHROOM CLEANED AND DREID BY PATIENTS CAREGIVER.
--- NOTE | 2017-06-27 11:35 | NUR ---
PATIENT NEEDS A HOSPITAL BED AT HOME, SCRIPT FOR A BED SENT TO DOCTOR MATIAS THE PATIENT'S PCP AT THE [place] AND A COPY OF THE SCRIPT WAS ALSO SENT TO THE PROSTHETIC DEPT AT THE [place] WHO HANDLES THE DELIVERY OF THE BED, SPOKE WITH BETHANY GOMEZ AT THE PROSTHETIC DEPARTMENT ON THE PHONE AND HE IS AWARE OF THE ORDER.
--- NOTE | 2017-06-27 11:48 | NUR ---
PATIENT JUST FINISHED WALKING THE UNIT WITH PT. PATIENT GETTING ANOTHER 40MG OF IV LASIX NOW PER .
--- NOTE | 2017-06-27 12:54 | NUR ---
Certified Heart Failure Nurse Notes: Diagnosis:HFpEF PCP:Liv Turner Date of echocardiogram -not noted Today's Wt.: 212 Admit BNP: 1630 Social support system: Lives with granddaughter/caregiver Kely. Patient goes on family trips with Kely and fishes with assistance 3 x week. Weight monitoring: Scale present in home and has been weighing weekly. Educated on how to weigh daily/when to notify PCP. Symptom management: Specific written recommendations to follow-up for ongoing management, and to address changes in weight or symptoms Transportation mode: Kely takes patient to appointments Diet: Usual meals include fruit/vegetables/meals made at home. Likes sandwiches with [employer] so Kely puts a very small amount on bread. Had changed somed bread for lettuce wraps. Shops at [employer] and [employer]. Dines out per week when traveling to [place]. Briefly discussed Vit K and warfarin Medication routine:per caregiver Will follow up with phone call after discharge. Education materials given today: [facility] Heart Failure Book, Daily weight log, [facility] contact card, and low salt shopping list.
--- NOTE | 2017-06-27 14:50 | NUR ---
PATIENT SITTING IN CHAIR WATCHING TV. VITALS AND I/OS RECORDED. FRESH ICE WATER AND COFFEE GIVEN. CALL LIGHT IN REACH NO OTHER NEEDS AT THIS TIME
--- NOTE | 2017-06-27 16:07 | NUR ---
PATIENT JUST RECEIVED 80MG IV LASIX. PATIENT JUST GOT BACK FROM THE RESTROOM AND IS SITTING UP IN THE RECLINER. PATIENT SAYS HE FEELS LIKE HE HAS MORE ENERGY AND IS BREATHING BETTER. PATIENT HAS ALREADY HAD 80MG OF LASIX TODAY. PAATIENT WILL CALL LUIS NEEDING TO GO TO THE RESTROOM AGAIN.
--- NOTE | 2017-06-27 16:25 | NUR ---
PATIENT UP TO THE BATHROOM AGAIN AND THEN BACK TO THE RECLINER. VOIDED IN THE TOILET, BUT MISSED THE HAT AGAIN.
--- NOTE | 2017-06-27 17:05 | NUR ---
PATIENT IN BR WITH BARB SMYTH. STANDBY ASSIST BACK TO CHAIR FOR DINNER. GARBAGE EMPTIED AND RROM TIDIED. CALL LIGHT IN REACH
--- NOTE | 2017-06-27 18:22 | NUR ---
PATIENT IN CHAIR, VITALS AND I/OS RECORDED. FRESH COFFE GIVEN, CALL LIGHT IN REACH. SANDOR REDDY EMPTIED AND RECORDED URINE
--- NOTE | 2017-06-27 19:05 | NUR ---
RECIEVED BEDSIDE REPORT FROM DAY SHIFT RN. PT UP IN CHAIR, 3L O2 NC IN PLACE. RESPIRATIONS ARE EQUAL AND NONLABORED. PT IS SL RAC. PT IS A/O. CALL LIGHT WITHIN REACH. REPORTS NO OTHER NEES AT THIS TIME
--- NOTE | 2017-06-27 19:54 | NUR ---
PATIENT SEEMS TO HAVE HAD A FAIRLY GOOD DAY WITH VISITORS OFF AND ON THROUGHOUT THE DAY. PATIENT HAS HAD NO C/O PAIN. 1+PLUSE EDEMA IN HIS ANKLES. LUNG SOUNDS WITH MORE CRACKLES IN THE MORNING, BUT HAS HAD 160MG OF IV LASIX TODAY AND PATIENT HAS URINATED OFF A LOT OF FLUID. PATIENT SAYS HE HAS MORE ENERGY AND IS BREATHING BETTER, FINE CRACKLES ONLY IN THE BASES THIS AFTERNOON. RAC IV WNL AND FLUSHES WITHOUT DIFFICULTY. PATIENT AMBULATES WELL WITH THE WALKER TO THE RESTROOM WITH 1PSBA AND USING HIS WALKER. PATEINT REMAINS ON HIS 3L/NC WHICH HE ALSO USES AT HOME. TALKED WITH FAMILY TODAY AND [facility]. PATIENT CONFUSED ABOUT PLACE AND TIME SOMETIMES, BUT IS EASILY REORIENTED AND HAS BEEN APPROPRIATE ALL DAY AND USES HIS CALL LIGHT APPROPRIATELY WHEN HE WANTS TO GET UP. CHAIR AND BED ALARMS HAVE BEEN UTILIZED. PATIENT HAS SAT IN THE RECLINER MOST OF THE DAY.
--- NOTE | 2017-06-27 20:30 | NUR ---
ASSESSMENT COMPLETED.RESPIRATIONS ARE EQUALA AND NONLABORED. LUNS HAVE FINE CRACKELS IN RLL AND COURSE CRACKLES IN LLL. UPPER LOBES DIM. 1+ PITTING EDEMA IN BILAT LE AND 2+ IN BILAT FEET. CAP REFILL IS +2. HEART SOUND IS IRREGULAR. 3L NC IN PLACE. LARGE AMOUNT OF URIN OUTPUT. PT REPORTS NO PAIN. CALL LIGHT WITHIN REACH.
--- NOTE | 2017-06-27 20:38 | NUR ---
VITALS AND I&OS DONE AND CHARTED. BEDSIDE TABLE AND CALL LIGHT WITHIN REACH. PT NEEDS NOTHING ELSE AT THIS TIME.
--- NOTE | 2017-06-27 20:49 | NUR ---
ASSITED PATIENT INTO BATHROOM. SBA W/FWW. PATIENT TOLERATED WELL. ASKED FOR FEW MINS PRIVACY AND HE WILL PULL THE ASSIST LIGHT.
--- NOTE | 2017-06-27 21:10 | NUR ---
CALL LIGHT ANSWERED, PT SBA TO BATHROOM. PRIVACY GIVEN. TOLERATED WELL WITH FWW. CALL LIGHT WITHN REACH
--- NOTE | 2017-06-27 22:12 | NUR ---
pt reported a sharp chest pain that lasted "seconds" per the pt. pt reported not he could think of caused the pain. reports it was sharp and came and went. pt reports the pain is gone at thsi time. v/s taken. hr 81 and regular, b/p 117/63, o2 91%, respirations 20. pt reports no other changes at this time. will cont to monitor.
--- NOTE | 2017-06-28 00:33 | NUR ---
CALL LIGHT ANSERED. SBA TO BATHROOM. CALL LIGHT WITHIN REACH.
--- NOTE | 2017-06-28 02:00 | NUR ---
PT UP TO SIDE OF BED. WOULD LIKE TO READ NEWS PAPER FOR A WHILE. CALL LIGHT WITHIN REACH.
--- NOTE | 2017-06-28 02:07 | NUR ---
VITALS AND I&OS DONE AND CHARTED. FRESH WATER GIVEN. PUDDING ALSO GIVEN PER REQUEST BY PT. HELPED PT TO THE BATHROOM AND BACK TO BED WITH HIS FWW. BEDSIDE TABLE AND CALL LIGHT WITHIN REACH. PT NEEDS NOTHING ELSE AT THIS TIME.
--- NOTE | 2017-06-28 04:43 | NUR ---
PT APPEARS TO BE SLEEPING, RESPIRAIOTNS ARE EQUAL AND NONLABORED. CALL LIGHT WITHIN REACH.
--- NOTE | 2017-06-28 06:02 | NUR ---
PT SLEPT MOST OF THE NIGHT. RESPIRATIONS EQUAL AND NONLABORED. NEB TREATMENTS, 3L NC IN PLACE. DAILY WEIGHTS, TODAY WAS 206.9. CPAP AT HOME- NOT IN USE HERE. FINE CRACKLES I RLL COARSE IN LLL. 1+ PITTING EDEMA IN BILAT LE, 2+ IN BILAT FEET. 1PA WITH FWW. HEART RATE IRREGULAR. REPORTED SHARP P[AIN IN LEFT CHEST THAT CAME ON QUICK AND LEFT QUICK. VSS.
--- NOTE | 2017-06-28 06:04 | NUR ---
VITALS AND I&OS DONE AND CHARTED. FRESH COFFEE GIVEN. DAILY WEIGHT DONE AND CHARTED. BEDSIDE TABLE AND CALL LIGHT WITHIN REACH. PT NEEDS NOTHING ELSE AT THIS TIME.
--- NOTE | 2017-06-28 08:35 | NUR ---
PATIENT UP IN CHAIR, RECIEVING BREATHING TREATMENT, RT IN ROOM. FAMILY IN ROOM. FRESH ICE WATER GIVEN. CALL LIGHT IN REACH
--- NOTE | 2017-06-28 09:00 | NUR ---
MORNING MEDICATION GIVEN. PATIENT SITTING UP IN CHIAR WITH LEGS DOWN. PATIENT REMINDED TO KEEPS LOWER LEGS ELEVATED WHILE IN CHAIR. PATIENT ABLE TO STATE NAME, LOCATION, PATIENT UNABLE TO STATE DATE. STATING I AM RETIRED I DONT NEED TO KNOW THE DATE. LUNGS CLEAR. EDEMA IN LOWER LEGS. PATIENT TOLERATED 100 PERCENT OF BREAKFAST. IV LASIX GIVEN. REMINDED PATIENT TO CALL FOR URINAL OR BATHROOM. PATIENT STATED HE UNDERSTOOD. CALL LIGHT WITHIN REACH.
--- NOTE | 2017-06-28 09:36 | NUR ---
STANDBY ASSIST PATIENT TO BR AND BACK TO CHAIR USING FWW. PATIENT WASHED FACE AND HANDS AT SINK. LEGS ELEVATED. CALL LIGHT ON LAP
--- NOTE | 2017-06-28 10:27 | NUR ---
PATIENT CALLED FROM BATHROOM, STANDBY ASSIST TO CHAIR USING FWW. PATIENT TELLING THIS DATA COLLECTION TECHNICIAN STORIES ABOUT HIS [employer] YEARS. GRANDDAUGHTER/CAREGIVER IN [place] TODAY. CALL LIGHT IN REACH. NO OTHER NEEDS
--- NOTE | 2017-06-28 11:10 | NUR ---
ROUNDED WITH DR. DAVIS IN ROOM. PLAN TO CONTINUE THEREAPY. POSSIBLE DISCHARGE TOMORROW. PT IN ROOM TO WORK WITH PATIENT.
--- NOTE | 2017-06-28 12:18 | NUR ---
STANDBY ASSIST PATIENT TO BR USING FWW. PATIENT WILL CALL WHEN READY
--- NOTE | 2017-06-28 12:25 | NUR ---
STAND BY ASSIST FROM BR TO CHAIR USING FWW. FRESH CUP OF ICE AND COLA GIVEN WELL ICEWATER CALL LIGHT IN REACH
--- NOTE | 2017-06-28 12:42 | NUR ---
patient sitting up in chair watching news. no sob. rt in room givsong neb. lasix and potassium given. no other needs at this time. will cont to monitor. call light with in reach
--- NOTE | 2017-06-28 13:49 | NUR ---
PATIENT IN CHAIR, APPEARS TO BE SLEEPING. RESPONDED WHEN ARM WAS TOUCHED. VITALS AND I/OS CHARTED. CALL LIGHT IN REACH. NO OTHER NEEDS ATT
--- NOTE | 2017-06-28 15:22 | NUR ---
ASSISTED TO THE BR. PT 1 ASSIST TO BR WITH WALKER. PATIENT HAD BM AND VOIDED. TOLERATED WELL. ASSISTED BACK TO THE CHAIR WITH LEGS ELEVATED. ICE CREAM GIVEN TO PATIENT.
--- NOTE | 2017-06-28 16:45 | NUR ---
PATIENT SITTING UP IN CHAIR. LOTION PLACED ON LOWER LEGS. REMINDED PATIENT TO KEEP ELEVATED MUCH POSSIBLE. EDEMA STILL PRESENT.
--- NOTE | 2017-06-28 17:54 | NUR ---
PATIENT SITTING UP IN CHAIR. TOLERATING DINNER WELL. NO OTHER COMPLAINTS AT THIS TIME.
--- NOTE | 2017-06-28 17:56 | NUR ---
PATIENT DOING WELL. LASIX BID. VOIDING WELL. TOLERATING DIET. 1 ASSIST TO BR WITH WALKER. ENCOURAGING PATIENT TO ELEVATE LEGS. EDEMA IN LOWER LEGS. PLAN TO DICHARGE HOME TOMORROW WITH NIECE. AWAITING HOSPITAL BED TO BE DELIEVED TO HOUSE HOPEFULLY BY SATURDAY. ALL INFORMATION SENT TO [facility]
--- NOTE | 2017-06-28 20:06 | NUR ---
RECEIVED BEDSIDE REPORT FROM PT OOB TO BATHROOM. 3L O2 NC IN PLACE. REPORTS NO OTHER NEEDS AT THIS TIME. CALL LIGHT WITHIN REACH.
--- NOTE | 2017-06-28 20:20 | NUR ---
ROUNDED CHARGE. PATIENT IS UP IN RECLINER RESTING. PATIENT DENIES ANY COMMENTS, QUESTION, OR CONCERNS. NO NEEDS NOTED. CALL LIGHT IN REACH.
--- NOTE | 2017-06-28 20:51 | NUR ---
VITALS AND I&OS DONE AND CHARTED. FRESH ICE WATER GIVEN. CALLED [employer] TO GET HIM A SANDWICH BOX. BEDSIDE TABLE AND CALL LIGHT WITHIN REACH.
--- NOTE | 2017-06-28 21:34 | NUR ---
ASSISTED PT OOB TO BATHRROM. 3L O2 NC IN PLACE. FWW USED. PT TOLERATED WELL. BACK TO CHAIR TO WATCH TV. CALL LIGTH WITHIN REACH.
--- NOTE | 2017-06-29 00:18 | NUR ---
PT APPEARS TO BE SLEEPING ON LEFT SIDE. RESPIRATIONS ARE EQUAL AND NONLABORED. CALL LIGHT WITHIN REACH. 3L NC IN PLACE
--- NOTE | 2017-06-29 02:10 | NUR ---
PT OOB TO BATHROOM. MED BM. PT WOULD LIKE TO STAY UP IN CHAIR. REQUESTED DECAFE COFFEE. CALL LIGHT WTIHIN REACH.
--- NOTE | 2017-06-29 04:00 | NUR ---
ASSISTED PT BACK TO BED, 3L O2 IN PLACE. CALL LIGHT WITHIN REACH. REPORTS NO PAIN. REPORTS NO OTHER NEEDS AT THIS TIME
--- NOTE | 2017-06-29 04:48 | NUR ---
HELPED PT TO THE BATHROOM AND BACK TO BED WITH HIS FWW. GOT PT SOME HOT CHOCOLATE PER REQUEST FROM PT. BEDSIDE TABLE AND CALL LIGHT WITHIN REACH.
--- NOTE | 2017-06-29 05:36 | NUR ---
VITALS AND I&OS DONE AND CHARTED. FRESH WATER GIVEN. BEDSIDE TABLE AND CALL LIGHT WITHIN REACH.
--- NOTE | 2017-06-29 06:25 | NUR ---
pt slept throughout the night. sba with fww. ada diet. daily weight. weight today was 205.9. lungs have wheezes and crackles heart irregular. +1 pitting edema in le.
--- NOTE | 2017-06-29 07:43 | NUR ---
PT RESTING IN CHAIR WATCH TV. FRESH WATER GIVEN. PT DENIES FURTHER NEEDS AT THIS TIME. CALL LIGHT WITHIN REACH.
--- NOTE | 2017-06-29 09:25 | NUR ---
DEVYN RN IN ROOM TO ASSIST PT WITH SHOWER.
[2017-06-29] MEDS ORDERED: DEPAKOTE ER250 MG PO (11:26)
[2017-06-29] MEDS ORDERED: LASIX40 MG PO ×2 (11:28→11:33)
--- NOTE | 2017-06-29 11:40 | NUR ---
PT UP TO BATHROOM WITH FWW. NURSE IN ROOM TO ASSIST. PT TOLERATED ACTIVITY WELL.
--- NOTE | 2017-06-29 12:08 | NUR ---
PT UP IN CHAIR EATING LUNCH. VISBLE FROM NURSES STATION. CALL LIGHT WITHIN REACH.
--- NOTE | 2017-07-03 10:50 | NUR ---
Heart Failure Follow Up Call- Kely, caregiver, states Mr Winter is doing well. She has all of the medications as ordered. He has mild swelling in one foot and she had him elevate it. Productive cough noted on Saturday and weight was up to 201lb. She gave him an extra lasix tab as ordered per sliding scale yesterday. No cough today and weight is down to 206lb. Encouraged her to discuss balance of weight loss of fluid vs nutrition with PCP. He has been using [facility]. Has follow up appointment tomorrow with PCP Johnny. Welcomed Kely to call [facility] if she has further HF management questions.
== END 2017-06-29 17:50 | disposition home or self-care (01) | DRG 292 ==
LOC: ED 13:41 → MS 16:25 → ED 16:25 → MS 16:27
PROVIDERS: ADMIT Internal Medicine
DX: I50.33 Acute on chronic diastolic (congestive) heart failure (principal); J96.11 Chronic respiratory failure with hypoxia; R29.6 Repeated falls; J44.9 Chronic obstructive pulmonary disease, unspecified; I25.10 Atherosclerotic heart disease of native coronary artery without angina pectoris; I48.2 Chronic atrial fibrillation; E11.22 Type 2 diabetes mellitus with diabetic chronic kidney disease; N18.3 Chronic kidney disease, stage 3 (moderate); M10.9 Gout, unspecified; F39 Unspecified mood [affective] disorder; K21.9 Gastro-esophageal reflux disease without esophagitis; E78.5 Hyperlipidemia, unspecified; E03.9 Hypothyroidism, unspecified; G30.9 Alzheimer's disease, unspecified; F02.80 Dementia in other diseases classified elsewhere, unspecified severity, without behavioral disturbance, psychotic disturbance, mood disturbance, and anxiety; Z86.73 Personal history of transient ischemic attack (TIA), and cerebral infarction without residual deficits; Z95.1 Presence of aortocoronary bypass graft; Z86.718 Personal history of other venous thrombosis and embolism; Z79.01 Long term (current) use of anticoagulants; Z79.51 Long term (current) use of inhaled steroids; Z79.899 Other long term (current) drug therapy
CPT/HCPCS: 36415; 71045; 80048; 80053; 80164; 82803; 83735; 83880; 84443; 84484; 85025; 85610; 93005; 93010; 94640; 94667; 94668; 97110; 97116; 97163

== ENCOUNTER 2017-07-10 23:50 | Emergency (ER) | payer OTHER ==
[~2017-07-10] VITALS: Ht 172.7 cm; Wt 93.2 kg
[~2017-07-10 23:50] MED LIST changes: +WARFARIN SODIUM5 MG PO
[2017-07-11] MEDS ORDERED: FERROUS GLUCON324 M1 PO (02:26)
[2017-07-11] MEDS ORDERED: LEVOTHYROXINE112 MCG PO (02:27)
[2017-07-11] MEDS ORDERED: VENTOLIN HFA18 GM (02:27)
[2017-07-11] MEDS ORDERED: NITROSTAT0.4 MG SL (02:28)
--- NOTE | 2017-07-11 11:02 | EKG ---
[facility] [address] [facility] [place] [address] Signed Sinus rhythm with occasional premature ventricular complexes and premature atrial complexes Incomplete left bundle branch block Nonspecific T wave abnormality Abnormal ECG When compared with ECG of 10-JUL-2017 23:55, (Unconfirmed) premature ventricular complexes are now present premature atrial complexes are now present Confirmed by TAMMI DAVIS MD ([id number]) on 07/11/2017 11:02:31 AM Electronically Signed By: TAMMI DAVIS MD 07/11/17 1102 PATIENT NAME: ROSY CERON Electrocardiogram DATE OF : 31 PHYSICIAN: TAMMI DAVIS MD REPORT #: [id number] REPORT IS CONFIDENTIAL AND NOT TO BE RELEASED WITHOUT AUTHORIZATION
--- NOTE | 2017-07-11 11:02 | EKG ---
[facility] [address] [facility] [place] [address] Signed Normal sinus rhythm Incomplete left bundle branch block Prolonged QT Abnormal ECG When compared with ECG of 26-JUN-2017 13:49, Sinus rhythm has replaced Atrial fibrillation Confirmed by TAMMI DAVIS MD ([id number]) on 07/11/2017 11:02:21 AM Electronically Signed By: TAMMI DAVIS MD 07/11/17 1102 PATIENT NAME: OSMANYROSY Electrocardiogram DATE OF : 31 PHYSICIAN: TAMMI DAVIS MD REPORT #: [id number] REPORT IS CONFIDENTIAL AND NOT TO BE RELEASED WITHOUT AUTHORIZATION
== END 2017-07-11 03:43 | disposition home or self-care (01) ==
LOC: ED 23:50
DX: R07.89 Other chest pain (principal); E11.9 Type 2 diabetes mellitus without complications; I10 Essential (primary) hypertension; Z87.01 Personal history of pneumonia (recurrent); F41.9 Anxiety disorder, unspecified; Z87.891 Personal history of nicotine dependence; Z79.899 Other long term (current) drug therapy; Z79.01 Long term (current) use of anticoagulants
CPT/HCPCS: 71045; 80053; 80164; 83880; 84484; 85025; 85610; 85730; 93005; 93010; 96374; 96375; 99284; J2270; J2405

== ENCOUNTER 2018-02-14 16:53 | Inpatient (IN) | payer OTHER ==
[~2018-02-14] VITALS: Ht 172.7 cm; Wt 88.9 kg
[~2018-02-14 16:53] MED LIST changes: +FERROUS GLUCON324 M1 PO; +LEVOTHYROXINE112 MCG PO; +NITROSTAT0.4 MG SL; +VENTOLIN HFA18 GM
[2018-02-14] MEDS ORDERED: ACETAMINOPHEN325 M1 PO (17:43)
[2018-02-14] MEDS ORDERED: ALBUTEROL2.5 MG/3 M INH (17:44)
[2018-02-14] MEDS ORDERED: ZYLOPRIM100 MG PO (17:45)
[2018-02-14] MEDS ORDERED: IPRAT-ALBUT 0.5-3 ML INH (17:45)
[2018-02-14] MEDS ORDERED: NORVASC5 MG PO (17:46)
[2018-02-14] MEDS ORDERED: ELIQUIS5 MG PO (17:46)
[2018-02-14] MEDS ORDERED: PULMICORT0.25 MG/2 INH (17:47)
[2018-02-14] MEDS ORDERED: SYMBICORT 16010.2 GM INH (17:47)
[2018-02-14] MEDS ORDERED: DOCUSIL100 MG PO (17:48)
[2018-02-14] MEDS ORDERED: VITAMIN D1000 UNIT PO (17:48)
[2018-02-14] MEDS ORDERED: ARICEPT10 MG PO (17:49)
[2018-02-14] MEDS ORDERED: NORCO 5-325 TA1 EACH PO (17:49)
[2018-02-14] MEDS ORDERED: HUMALOG MI100 UNIT/4 SUB-Q (17:50)
[2018-02-14] MEDS ORDERED: CONSTULOSE10 GM/15 M PO (17:51)
[2018-02-14] MEDS ORDERED: ISOSORBIDE MONO60 MG PO (17:51)
[2018-02-14] MEDS ORDERED: LISINOPRIL5 MG PO (17:52)
[2018-02-14] MEDS ORDERED: TOPROL XL25 MG PO (17:52)
[2018-02-14] MEDS ORDERED: MIRALAX17 GM PO (17:52)
[2018-02-14] MEDS ORDERED: KLOR-CON M1010 MEQ PO (17:53)
[2018-02-14] MEDS ORDERED: SENNA8.6 MG PO (17:53)
--- NOTE | 2018-02-14 21:10 | NUR ---
PT TO ROOM 129, PT ON BIPAP FIO2 40%, O2 SAT 94%, TOLERATING WELL PT RESPONSIVE TO VERBAL STIMULI, WILL FOLLOW DIRECTIONS, PT DROWSY, WEAK, HR 92 BP 158/75, PT DENIES ANY PAIN, STATES HE DOES FEEL SLIGHTLY SOB BUT DENIES CP, IV FLUIDS STARTED PER EMAR, APARICIO CATH DRAINING WNL, PT'S TEMP 100.8, PT RESTING IN BED EYES CLOSED, BREATHS EVEN, RR 22, NO REQUESTS AT THIS TIME, FALL PRECAUTIONS IN PLACE. CALL LIGHT WITHIN REACH, WILL CONTINUE TO MONITOR.
--- NOTE | 2018-02-14 21:45 | NUR ---
PT RESTING IN BED, ON BIPAP, FIO2 40%, O2 SATURATION 97%, RR 22, HR 70'S, IRREGULAR, DISCUSSED POC WITH DR. MAYORGA, NEW ORDER FOR LOVENOX IN MORNING, COAG/ABG LABS, PT TO GO TO CT THIS SHIFT, NO FURTHER ORDERS. PT RESTING IN BED, VSS, FALL PRECAUTIONS IN PLACE.
--- NOTE | 2018-02-14 22:13 | NUR ---
APARICIO EMPTIED, 37ML LAST 30 MINUTES.
--- NOTE | 2018-02-14 22:19 | EKG ---
[facility] [address] [facility] [place] [address] Signed Sinus tachycardia with frequent premature ventricular complexes Rightward axis ST \T\ T wave abnormality, consider inferolateral ischemia Abnormal ECG When compared with ECG of 11-JUL-2017 00:43, premature atrial complexes are no longer present Inverted T waves have replaced nonspecific T wave abnormality in Inferior leads Inverted T waves have replaced nonspecific T wave abnormality in Lateral leads Confirmed by ERNST MAYORGA DO ([id number]) on 02/14/2018 10:19:07 PM Electronically Signed By: ERNST MAYORGA DO 02/14/18 2219 PATIENT NAME: ROSY CERON Electrocardiogram DATE OF : 31 PHYSICIAN: ERNST MAYORGA DO REPORT #: [id number] REPORT IS CONFIDENTIAL AND NOT TO BE RELEASED WITHOUT AUTHORIZATION
--- NOTE | 2018-02-14 23:00 | NUR ---
PT TO CT FOR SCAN, PT ON 5L OXY MASK, TOLERATED WELL, ACCOMPANIED BY TRUMAN RN AND THIS RN, MARIELAS, PT BACK TO ROOM, IV FLUIDS INFUSING PER EMAR WNL, APARICIO CATH DRAINING WNL, ON BIPAP AT 40% FIO2, O2 SAT 96%, RR 20, HR 70'S. IV ABX INFUSING PER EMAR. NO REQUESTS AT THIS TIME. FALL PRECAUTIONS IN PLACE.
--- NOTE | 2018-02-14 23:45 | NUR ---
NEW ORDER FOR IV LASIX 20MG, ADMINISTERED TO PT PER EMAR, WILL CONTINUE TO MONITOR URINE OUTPUT. VSS, HR 88, BP 112/77. ON BIPAP, FIO2 40%, O2 SAT 98%, RR 21. FALL PRECAUTIONS IN PLACE, IV FLUIDS INFUSING PER EMAR WNL.
--- NOTE | 2018-02-15 01:02 | NUR ---
PT RESTING IN BED, ALERT, ORIENTED TO SELF, PLACE, AND , DISORIENTED TO TOWN, AND YEAR, PT APPROPRIATE, PLEASANT, PT REQUESTS WATER, ICE WATER PROVIDED, PT TOLERATED PO INTAKE WELL, PT ON BIPAP, FIO2 40%, O2 SAT >95%, TOLERATING WELL, PT DENIES ANY PAIN, DENIES SOB/CP, PT'S LS DIMINISHED, BREATHS SHALLOW, RR 20, BT HYPOACTIVE, ABD NONTENDER, PT DENIES ANY NAUSEA. PT WAS ABLE TO EXPECTORATE CLEAR/GREEN SPUTUM, COUGHING/DEEP BREATHING ENCOURAGED. HEART SOUNDS IRREGULAR, PULSES IRREGULAR, FAINT IN BLE, 2+ PITTING EDEMA NOTED IN BILATERAL FEET, CMS INTACT, PT REORIENTED TO ROOM/ CALL LIGHT. IV FLUIDS INFUSING PER EMAR WNL, APARICIO CATH DRAINING WNL, GOOD URINE OUTPUT, 130MLS FOR THE LAST HOUR. NO REQUESTS AT THIS TIME, CALL LIGHT WITHIN REACH, SCHED NEB BEING ADMINISTERED, FALL PRECAUTIONS IN PLACE.
--- NOTE | 2018-02-15 02:00 | NUR ---
CALL LIGHT ANSWERED, PT RESTING IN BED, ALERT, REQUESTING WATER, SIPS OF WATER PROVIDED TO PT, NO FURTHER REQUESTS AT THIS TIME, APARICIO CATH DRAINING WNL, BIPAP ON FIO2 40%, O2 SAT >95%, NO C/O PAIN, NO C/O SOB. CALL LIGHT WITHIN REACH. FALL PRECATUIONS IN PLACE.
--- NOTE | 2018-02-15 03:00 | NUR ---
PT RESTING IN BED, EYES CLOSED, BREATHS EVEN, ON BIPAP, FIO2 40%, O2 SAT >95%, NO REQUESTS AT THIS TIME, CALL LIGHT WITHIN REACH. FALL PRECAUITONS IN PLACE.
--- NOTE | 2018-02-15 04:21 | NUR ---
PT RESTING IN BED, AWAKE, ALERT, ORIENTED TO SELF, ASKING QUESTIONS REGARDING SITUATION, SURROUNDINGS. PT AGREEABLE TO POC, PT OFF OF BIPAP, ON OXY MASK O2 AT 6L, PT TOLERATING WELL, STATING "I AM BREATHING MUCH BETTER" DENIES SOB/CP, PT HAS VERY FREQUENT PRODUCTIVE COUGH, THICK YELLOW/GREEN SPUTUM, PT ENCOURAGED TO COUGH/DEEP BREATH, LS DIMINISHED IN BASES, UPPER LOBES CLEAR, PT DENIES PAIN, APARICIO CATH DRAINING WNL, PT GIVEN ORANGE JUICE PER PT'S REQUEST, TOLERATED WELL, NO FURTHER REQUESTS AT THIS TIME, CALL LIGHT WITHIN REACH. FALL PRECAUTIONS IN PLACE.
--- NOTE | 2018-02-15 05:32 | NUR ---
PT TURNED IN BED, PT ABLE TO ASSIST WITH TURNING IN BED WELL, PT'S BACKSIDE APPEARS LIGHT PINK, BLANCHES WELL, NO OPEN AREAS, PT ENCOURAGED TO FREQUENTLY SHIFT WEIGHT/REPOSITION SELF, PT AGREEABLE, PT DENIES ANY PAIN WITH MOVEMENT, TOLERATED WELL, NO REQUESTS AT THIS TIME, CALL LIGHT WITHIN REACH, FALL PRECAUTIONS IN PLACE.
--- NOTE | 2018-02-15 07:30 | NUR ---
REPORT RECIEVED. PATIENT IS ASLEEP WITH BIPAP ON, NO DISTRESS NOTED.
--- NOTE | 2018-02-15 08:00 | NUR ---
AWAKENED FOR ACCUCHECK-125. O2 AT 5 L NC APPLIED BIPAP OFF AT THIS TIME. TALKED WITH PATIENT ABOUT PLAN OF CARE FOR DAY. APARICIO CATH IS PATENT WITH CLEAR ROMI URINE. HAS PRODUCTIVE COUGH OF THICK YELLOW SPUTUM. NEB TREATMENT GIVEN PER RT. HOB ELEVATED.
--- NOTE | 2018-02-15 09:00 | NUR ---
SITTING UP IN BED FOR BREAKFAST. GRANDDAUGHTER IS IN ROOM. HEEL PROTECTORS APPLIED PATIENT C/O PAIN AT HEAL OF LEFT FOOT.
--- NOTE | 2018-02-15 10:00 | NUR ---
PHYS THERAPY HERE TO SEE PATIENT. PATIENT IS MOVING WELL. TRANSFERRED TO CHAIR. DENIES SHORTNESS OF BREATH WITH EXERTION. TALKATIVE. GRANDDAUGHTER REMAINS IN ROOM. APARICIO CATH IS PATENT WITH ROMI URINE NOTED.
--- NOTE | 2018-02-15 11:00 | NUR ---
DR. MAYORGA HERE TO SEE PATIENT, ORDERS RECIEVED TO TRANSFER TO MEDICAL FLOOR.
--- NOTE | 2018-02-15 11:20 | NUR ---
TO XRAY VIA W/C FOR XRAY OF LEFT HIP.
--- NOTE | 2018-02-15 11:40 | NUR ---
RETURNED TO ROOM 129. TELE #7 APPLIED, REMAINS IN AFIB. O2 AT 2 L NC, O2 SAT 91.
--- NOTE | 2018-02-15 12:00 | NUR ---
ACCUCHECK-192, 3 UNITS OF HUMOLOG INSULIN GIVEN. ASSESSMENT UNCHANGED. SITTING IN CHAIR READY FOR LUNCH.
--- NOTE | 2018-02-15 13:25 | NUR ---
TO MED-SURG VIA CHAIR, REPORT GIVEN VIA PHONE EARLIER.
--- NOTE | 2018-02-15 13:36 | NUR ---
PT ARRIVED TO FLOOR VIA CHAIR WITH BARB MARTINEZ TWINE REELING MACHINE OPERATOR. PATIENT ALERT AND ORIENTED. AWAKE. ON 2L 02 VIA NC. COUGH. CALL LIGHT WITHIN REACH.
--- NOTE | 2018-02-15 15:00 | NUR ---
ASSESSEMTN COMPLETED. RLL DIME WITH RHONCI. PT IS PLEASENT AAO. 2L NC IN PLACE. SALINE LOCKED. RLE WITH 2+ EDEMA LLE 1+ EDEMA. HEART SOUNDS IRREGULAR. TELE 7 WITH IRREGULAR RATE. ORIENTED TO ROOM. DIET COKE PROVIDED. CALL LIGHT IN REACH. DENEIS FURTHER NEEDS.
--- NOTE | 2018-02-15 18:07 | NUR ---
PATIENT IN CHAIR WATCHING TV. FRESH WATER GIVEN. CALL LIGHT IN REACH. NO FURTHER NEEDS AT THIS TIME.
--- NOTE | 2018-02-15 18:17 | NUR ---
TRANSFERED FROM CCU. ON TELE 7 WITH IRREGULAR HR. 2L NC IN PLACE. NO SOB. LUNGS DIM IN RLL. IV WNL. PRODUCTIVE COUGH.
--- NOTE | 2018-02-16 04:12 | NUR ---
PATIENT ATTEMPTED TO EXIT HIS BED WITHOUT ASSISTANCE. BED ALARM ALERTED STAFF. PATIENT STATED THAT HE NEEDED TO VOID. REMINDED PATIENT THAT HE HAS A APARICIO. PATIENT ASKING WHERE HE IS AND REQUIRING REORIENTATION. ASSISTED PATIENT TO THE RECLINER, EMPTIED APARICIO. PATIENT REQUESTING SOMETHING TO DRINK, MILK AND ENSURE PROVIDED. PATIENT HAS AN AUDIBLE WHEEZE. RT CONTACTED FOR NEB TREATMENT. CHAIR ALARM IN PLACE. REMINDED PATIENT TO USE CALL LIGHT.
--- NOTE | 2018-02-16 08:00 | NUR ---
RECEIVED REPORT AT 0700, FOUND PT UP IN CHAIR AWAKE. PT NEEDED TO USE THE BATHROOM AND HAD A BM. PT IS BACK IN CHAIR. NO NEEDS OR CONCERNS AT THIS TIME.
--- NOTE | 2018-02-16 08:30 | NUR ---
PATIENT UP IN CHAIR WAITING FOR BREAKFAST. CALL LIGHT IN REACH. NO FURTHER NEEDS AT THIS TIME.
--- NOTE | 2018-02-16 10:00 | NUR ---
ALESSANDRA D/C AT 1000. TELE ALSO TO BE D/C. PT IS STILL SITTING UP IN CHAIR. SLEEPING. RR WAS 24, MD MAYORGA IS AWARE. PT HOWEVER DENIED SOB. AT 0800 ALL LOBES HAD EXPIRATOR WHEEZING IN ALL LOBES. AT THIS TIME ALL LOBES ARE CLEAR. WILL CONTINUE TO MONITOR.
--- NOTE | 2018-02-16 10:15 | NUR ---
PATIENT IN CHAIR, RN IN ROOM. RN GOT V/S. FRESH WATER GIVEN. CALL LIGHT IN REACH. NO FURTHER NEEDS AT THIS TIME.
--- NOTE | 2018-02-16 12:00 | NUR ---
PT IS AWAKE IN BED. PT IS EATING SF ICE CREAM, LUNCH IS ORDERED. PT SEEMS CONTENT. NO NEW CONCERNS AT THIS TIME.
--- NOTE | 2018-02-16 14:00 | NUR ---
PT IS STILL SITTING IN CHAIR WATCHING TV. PT DID HAVE A INCONTINENT VOID. BRIEF IN PLACE NOW. PT ALSO HAD A SHOWER. NO CHANGE IN LOWER EXTREMITY EDEMA, UPP[ER LOBES HAVE EXPIRATORY WHEEZING, LOWER LOBES HAVE RONCHI PRESENT. PT DENIES SOB.
--- NOTE | 2018-02-16 15:29 | NUR ---
PT FOUND UP AND PEEING WHILE STANDING AT EDGE OF BED. DEPENDS SATURATED AND FLOOR WET WITH URINE. DEPENDS CHANGED. TAE CARE DONE. FLOOR CLEANED. GOWN CHANGED. PT BACK TO CHAIR. FALL PRECAUTION PROTOCOL REVIWED WITH PT. PT DEMONSTRATES UNDERSANDING. CHAIR ALARM ON. BULLET SWAGING MACHINE ADJUSTER AT BEDSIDE CHANGING LINENS. CALL LIGHT WITHIN REACH. PTS RN NOTIFIED.
--- NOTE | 2018-02-16 17:19 | NUR ---
AT START OF SHIFT ALL LOBES HAD EPIRATORY WHEEZING PRESENT. LATER THAT MORNING ALL LOBES WERE CLEAR. WITH THE AFTERNOON ASSESSMENT UPPER LOBES HAD EXPIRATORY WHEEZING PRESENT AGAIN AND RONCHI IN THE LOWER LOBES. RR AT MID MORNING WAS 24, MD MAYORGA IS AWARE. PT DENIED SOB ALL DAY SO FAR. PT IS VOIDING WELL. PT IS INCONTINENT HOWEVER. V/S OVERALL ARE WDL SO FAR. NO NEW CONCERNS NOTED SO FAR.
--- NOTE | 2018-02-16 18:31 | NUR ---
PATIENT O2 WAS LOW ON RA, RN NOTIFIED. PATIENT PUT ON TO 2LNC UPON RN REQUEST. PATIENT IN CHAIR WATCHING TV. FREASH WATER GIVEN. CALL LIGHT IN REACH. NO FURTHER NEEDS AT THIS TIME.
--- NOTE | 2018-02-16 19:15 | NUR ---
BEDSIDE REPORT RECEIVED FROM OFFGOING RN. PT SITTING UP IN CHAIR WITH EYES CLOSED. CALL LIGHT IN REACH. CHAIR ALARM IN PLACE.
--- NOTE | 2018-02-16 22:18 | NUR ---
PT ASSESSMENT COMPLETE. PT DENIE PAIN, NAUSEA, SOB. PT LUNG SOUNDS WITH RHONCI THROUGHOUT. DO NOT CLEAR WITH COUGH. PT COUGHING THROUGHOUT ASSESSMENT, LARGE AMOUNT OF THICK, YELLOW SPUTUM PRESENT. O2 IN PLACE AT 2 LPM. PT EDUCATION PROVIDED TO SPIT SPUTUM RATHER THAN SWALLOW, PT DEMONSTRATES APPROPRIATELY. EDEMA PRESENT TO BLE'S 2+ PITTING. ATTENDS IN PLACE FOR INCONTINENCE. BED ALARM IN PLACE. PT DENIES FURTHER NEEDS. CALL LIGHT WITHIN REACH.
--- NOTE | 2018-02-17 01:15 | NUR ---
PT WITH BED ALARM SOUNDING. PT ATTEMPTING TO GET OUT OF BED. ATTEND AND LINENS WET. ATTENDS AND LINENS CHANGED WHILE PT UP IN CHAIR. PT BACK TO BED. TOLERATED WELL. BED ALARM ACTIVE. ROOM IN VIEW OF RN STATION.
--- NOTE | 2018-02-17 03:00 | NUR ---
PT FOUND BY MACHINING DEPARTMENT SUPERVISOR TO HAVE PULLED IV OUT. IV ATTEMPT X 1 BY THIS SPICE MILLER HAMMER MILL, X 2 BY OTHER RN. ELECTRIC ORGAN ASSEMBLER AND CHECKER CALLED TO ATTEMPT IV START. PT RESTING IN BED WITH BED ALARM ACTIVE. ROOM IN VIEW OF RN STATION, CALL LIGHT WITHIN REACH.
--- NOTE | 2018-02-17 06:06 | NUR ---
INFORMED BY CHISEL MORTISER OPERATOR, SAO2 88-89%. THIS BOILER WATER TESTER ASSESSED PT. PT DENIES SOB. PT APPEARS TO BE BREATHING THROUGH HIS MOUTH. OXY MASK PLACED. PT CONTINUES WITH SAO2 88%. LUNG SOUNDS WITH EXPIRATORY WHEEZES AND RHONCI THROUGHOUT. PT HAS PRODUCTIVE COUGH WITH THICK YELLOW SPUTUM. PT ATTEMPTING TO EAT WITH OXYMASK IN PLACE, NC REPLACED. O2 INCREASED TO 3LPM. O2 UP TO 93%. PT CONTINUES TO SIT UP IN CHAIR. DENIES NEEDS AT THIS TIME. CALL LIGHT IN REACH.
--- NOTE | 2018-02-17 08:18 | NUR ---
PT SITTING UP IN CHAIR EATING BREAKFAST. STATES IT IS HIS FAVORITE MEAL. ORIENTED TO SELF AND LOCATION AND SURROUNDINGS BUT NOT EVENT. VS STABLE WITH PULSE OX TAKEN ON FORHEAD FINGERS ARE COLD AND NOT READING. LUNGS SOUND TERRIBLE, COUGING UP COPIUOS AMTS YELLOW PHLEGM. MILD EDEMA NOTED ON RIGHT LEG.
[2018-02-17] MEDS ORDERED: DIVALPROEX SOD250 M1 PO (10:09)
[2018-02-17] MEDS ORDERED: TOPROL XL25 MG PO (12:12)
[2018-02-17] MEDS ORDERED: CEFPODOXIME PR200 MG PO (12:12)
--- NOTE | 2018-02-17 15:25 | NUR ---
PTS GRANDDAUGHTER HERE TO PICK HIM UP. PHARMACY IN TO EDUCATE. IV REMOVED WNL.
== END 2018-02-17 15:44 | disposition home or self-care (01) | DRG 193 ==
LOC: ED 16:53 → CCU 20:20 → MS 20:20
PROVIDERS: ADMIT Student in an Organized Health Care Education/Training Program
DX: J13 Pneumonia due to Streptococcus pneumoniae (principal); J96.22 Acute and chronic respiratory failure with hypercapnia; J96.21 Acute and chronic respiratory failure with hypoxia; G93.41 Metabolic encephalopathy; I13.0 Hypertensive heart and chronic kidney disease with heart failure and stage 1 through stage 4 chronic kidney disease, or unspecified chronic kidney disease; J44.0 Chronic obstructive pulmonary disease with (acute) lower respiratory infection; I50.32 Chronic diastolic (congestive) heart failure; J44.1 Chronic obstructive pulmonary disease with (acute) exacerbation; M10.9 Gout, unspecified; I25.10 Atherosclerotic heart disease of native coronary artery without angina pectoris; E11.22 Type 2 diabetes mellitus with diabetic chronic kidney disease; N18.3 Chronic kidney disease, stage 3 (moderate); F03.90 Unspecified dementia, unspecified severity, without behavioral disturbance, psychotic disturbance, mood disturbance, and anxiety; I48.2 Chronic atrial fibrillation; G47.33 Obstructive sleep apnea (adult) (pediatric); K21.9 Gastro-esophageal reflux disease without esophagitis; F39 Unspecified mood [affective] disorder; Z86.73 Personal history of transient ischemic attack (TIA), and cerebral infarction without residual deficits; Z99.81 Dependence on supplemental oxygen; Z95.5 Presence of coronary angioplasty implant and graft; Z86.718 Personal history of other venous thrombosis and embolism; Z79.01 Long term (current) use of anticoagulants
CPT/HCPCS: 36415; 36600; 51702; 70450; 71045; 73502; 80048; 80053; 80164; 81001; 82803; 83605; 83735; 83880; 84484; 85025; 85610; 87040; 87070; 87205; 87502; 87899; 93005; 93010; 94640; 94660; 94667; 94668; 94760; 96365; 96375; 97110; 97116; 97163; 97166; 99285-25; C9113; J0456; J0696; J1650; J1815; J1940; J3480

== ENCOUNTER 2018-05-12 20:54 | Inpatient (IN) | payer OTHER ==
[~2018-05-12] VITALS: Ht 172.7 cm; Wt 92.0 kg
[~2018-05-12 20:54] MED LIST changes: +ACETAMINOPHEN325 M1 PO; +ALBUTEROL2.5 MG/3 M INH; +CEFPODOXIME PR200 MG PO; +CONSTULOSE10 GM/15 M PO; +DIVALPROEX SOD250 M1 PO; +DOCUSIL100 MG PO; +ELIQUIS5 MG PO; -FERROUS GLUCON324 M1 PO; +FERROUS SULFAT325 MG PO; +HUMALOG MI100 UNIT/4 SUB-Q; +ISOSORBIDE MONO60 MG PO; +KLOR-CON M1010 MEQ PO; +LISINOPRIL5 MG PO; +MIRALAX17 GM PO; +NORVASC5 MG PO; +PULMICORT0.25 MG/2 INH; +VITAMIN D1000 UNIT PO; +ZYLOPRIM100 MG PO
[2018-05-12] MEDS ORDERED: LIPITOR20 MG PO (22:15)
--- NOTE | 2018-05-12 23:23 | NUR ---
PT ARRIVED TO THE UNIT FROM THE ED VIA STRETCHER. DIE MAINTENANCE SABRINA IN ROOM TO COMPLETE INITIAL ADMIT. VSS. PT DENIES PAIN. RR WNL, PT ON 3LNC. NO DISTRESS NOTED.
--- NOTE | 2018-05-12 23:30 | NUR ---
PT ADMITTED TO ROOM 120 FROM ED, FROM [facility], STATES THAT HE HAD TROUBLE BREATHING, SWELLING IN HIS FEET. GRANDDAUGHTER HAILE PRESENT AND CONFIRMS. PT ABLE TO TRANSFER WITH WALKER, USED THE URINAL, AND STOOD ON THE STANDING SCALE, BEFORE AMBULATING TO THE BED. NEEDED SOME LIGHT ASSISTANCE TO GET SETTLED INTO BED. ON 3L O2 PER NC, CHRONIC. AWARE OF HIS SURROUNDS. CALL LIGHT WITHIN REACH.
--- NOTE | 2018-05-13 00:45 | NUR ---
ASSESSMENT COMPLETE. SCHEDULED MEDICATIONS GIVEN (SEE EMAR). PT DENIES PAIN, A/OX4, REORINETED TO HOSPITAL'S NAME. O2 SAT WNL ON 3LNC, NO DISTRESS NOTED. PT REPOSITIONED IN BED, BLE ELEVATED W/ PILLOWS. NO FURTHER NEEDS, CALL LIGHT IN REACH.
--- NOTE | 2018-05-13 02:30 | NUR ---
PT RESTING IN BED, EYES CLOSED. NO DISTRESS NOTED. 3LNC IN PLACE. CALL LIGHT IN REACH.
--- NOTE | 2018-05-13 06:47 | NUR ---
PT ARRIVED TO THE FLOOR FROM THE ED. PT ON HEART HEALTHY DIET WITH FLUID RESTRICTION, TOLERATING WELL. SALINE LOCKED. VSS, 3LNC. PT USES CALL LIGHT FREQUENTLY FOR ASSISTANCE WITH URINAL. PT 2PA WITH FWW.
--- NOTE | 2018-05-13 07:25 | NUR ---
SCHEDULED THYROID MEDICATION GIVEN. PT REPORTS MILD SOB, HOB ELEVATED AND PT REPOSITIONED. O2 SAT MAINTAINING WITH 3LNC IN MID 90'S. AUDIBLE WHEEZES NOTED WITH STETHOSCOPE. PT'S GRANDDAUGHTER IN ROOM WITH PT. RT CALLED FOR PRN BREATHING TREATMENT.
--- NOTE | 2018-05-13 07:28 | NUR ---
Pt sitting up in bed at this time. Pt is on 3l oxygen; oxygen sat level is 95%. Pt to receive neb treatment here shortly. Pt denies pain. Personal supplies and call light within reach. Pt denies needs at this time. Personal supplies and call light within reach.
[2018-05-13] MEDS ORDERED: METOPROLOL SUCC50 MG PO (09:54)
[2018-05-13] MEDS ORDERED: LISINOPRIL20 MG PO (09:55)
[2018-05-13] MEDS ORDERED: ASCORBIC ACID500 MG PO (09:57)
[2018-05-13] MEDS ORDERED: PULMICORT0.5 MG/2 M INH (09:59)
--- NOTE | 2018-05-13 11:33 | NUR ---
PT SITTING UP IN CHAIR, EYES CLOSED RESP EVEN AND NON LABORED. PERSONAL SUPPLIES AND CALL LIGHT WITHIN REACH. PT APPEARS COMFORTABLE AND WITHOUT DISTRESS. CLOSE TO RN STATION.
--- NOTE | 2018-05-13 13:44 | NUR ---
PATIENT UP TO BATHROOM, 1PA FWW. PATIENT AMBULATED HALLWAY WITH THIS [employer] RETAILER SALES CONSULTANT, 1PA, FWW. PATIENT NOW BACK TO CHAIR. CLL LIGHT IN REACH. NO FURTHER NEEDS AT THIS TIME.
--- NOTE | 2018-05-13 14:08 | NUR ---
PATIENT IN CHAIR WATCHING TV. FRESH WATER GIVEN. CALL LIGHT IN REACH. NO FURTHER NEEDS AT THIS TIME.
--- NOTE | 2018-05-13 15:31 | EKG ---
[facility] [address] [facility] [place] [address] Signed Sinus rhythm with premature ventricular complaxes Incomplete left bundle branch block Nonspecific ST and T wave abnormality Prolonged QT Abnormal ECG When compared with ECG of 14-FEB-2018 17:04, Current undetermined rhythm precludes rhythm comparison, needs review T wave inversion less evident in Inferior leads T wave inversion no longer evident in Anterior leads Confirmed by ERNST MAYORGA DO ([id number]) on 05/13/2018 3:31:06 PM Electronically Signed By: ERNST MAYORGA DO 05/13/18 1531 PATIENT NAME: ROSY CERON Electrocardiogram DATE OF : 31 PHYSICIAN: ERNST MAYORGA DO REPORT #: [id number] REPORT IS CONFIDENTIAL AND NOT TO BE RELEASED WITHOUT AUTHORIZATION
--- NOTE | 2018-05-13 17:19 | NUR ---
PT A&OX3. 2L 02, 3L PER HOME. 1 P ASSIST WITH WALKER. TOLERATING HEART HEALTHY DIET. LASIX IVP BID. LIKELY TO D/C TOMORROW.
--- NOTE | 2018-05-13 18:06 | NUR ---
PATIENT IN CHAIR COLORING. FRESH WATER GIVEN. GRANDDAUGHTER IN ROOM. CALL LIGHT IN REACH. NO FURTHER NEEDS AT THIS TIME.
--- NOTE | 2018-05-13 19:10 | NUR ---
SHIFT REPORT RECEIVED. PATIENT RESTING IN RECLINER. ASSISTED PATIENT UP TO BATHROOM. SBA W/FWW. PATIENT TOLERATED WELL. PATIENT BACK TO RECLINER. CHAIR ALARM ON. PROVIDED A SNACK PER PATIENT REQUEST. NO OTHER NEEDS AT THIS TIME. CALL LIGHT IN REACH.
--- NOTE | 2018-05-13 21:15 | NUR ---
EVENING MEDICATIONS PROVIDED PER ORDER. PATIENT UP RESTING IN CHAIR. IS ORIENTED TO SELF AND KNOWS HE IS IN THE HOSPITAL BUT NOT THE TOWN. PATIENT EASILY REORIENTED. PATIENT STATES "I THINK I BUMPED MY HEAD, I KEEP FORGETTING THINGS". PROVIDED REASSURANCE TO PATIENT. PATIENT DENIES ANY PAIN. LUNGS ARE COARSE, ENCOURAGED COUGH AND DEEP BREATHING. PATIENT HAS HEALTHY APPETITE, ASKING FOR SNACKS FREQUENTLY. PATIENT REQUESTED TO GO TO BED. ASSISTED PATIENT INTO BED WITH SBA. PATIENT'S LOWER EXTREMITIES ELEVATED. SHIVAM HOSE IN PLACE, PATIENT WANTS TO SLEEP WITH THEM ON. 3+ PITTING EDEMA NOTED. HOB ELEAVTED. PATIENT REPORTS BEING COMFORTABLE. CALL LIGHT IN REACH. BED ALARM ON. TV ON AND TURNED UP PER PATIENT REQUEST.
--- NOTE | 2018-05-13 23:00 | NUR ---
SANDOR MAGUIRE ASSISTED PATIENT UP TO BATHROOM AND THEN TO RECLINER. PATIENT REQUESTING SNACKS, HEART HEALTHY SNACK PROVIDED. CALL LIGHT IN REACH. CHAIR ALARM ON.
--- NOTE | 2018-05-14 03:26 | NUR ---
PATIENT UP TO BATHROOM WITH SANDOR ARCE
--- NOTE | 2018-05-14 06:24 | NUR ---
PATIENT RESTED MOST OF THE SHIFT. WAKING TO MOVE FROM BED TO CHAIR AND HAVE SNACKS. PATIENT DENIES PAIN. IS ORIENTED TO ALL BUT THE DATE THIS AM. 3L NC. SCHEDULED NEBS. 3+ EDEMA IN EMBER LOWER EXTREMITIES. ENCOURAGED ELEVATION. HEART HEALTHY DIET, WITH 1800ML FLUID RESTRICTION. 1PA W/FWW.
--- NOTE | 2018-05-14 08:47 | NUR ---
SPOKE WITH PATIENT IN ROOM. PATIENT UP IN CHAIR, PLEASANT. PATIENT HAS COUGH AND SOB WITH THIS. PATIENT NOT ORIENTED TO DATE ETC. BUT IS TO SELF. PATIENT STATES HIS GRANDDAUGHTER "HANDLES MY STUFF". ASKED IF I SHOULD TALK WITH MARTIN AND HE STATES "YES SHE HANDLES MY STUFF". ASKED PATIENT HOW HIS WALKING IS GOING, STATES "OH I'M PRETTY DARN SHAKEY". PATIENT DENIES QUESTIONS OR CONCERNS, JUST WANTED TV SOUND TURNED UP. CALLED GRANDDAUGHTER MARTIN [phone] AND SPOKE WITH HER. SHE STATES PATIENT DID MOVE TO [facility] RECENTLY HE IS REQUIRING MORE HELP. SHE STATES HE HAS [facility] COVERAGE AND MEDICARE PART A. WE DISCUSSED POSSIBLE NEED FOR CONTINUED REHAB TO RETURN TO ASSISTED LIVING. SHE STATES THEY DO NOT WANT HIM GOING TO A SNF FACILITY, THEY TRIED THAT LAST YEAR AND HE BECAME "TERRIBLY CONFUSED AND UPSET". SHE STATES THEY WOULD AGREE TO SWING BED STAY, HE UNDERSTANDS THE HOSPITAL BETTER, BUT SHE IS UNSURE ABOUT BILLING HIS VA IS PRIMARY. WE DISCUSSED THAT PT AND OT WILL SEE HIM AGAIN TODAY AND WE WILL KNOW MORE OF IF HE IS ABLE TO DO HOME HEALTH THERAPY OR NEEDS INPATIENT. SHE STATES UNDERSTANDING. NO FURTHER QUESTIONS. SPOKE WITH NIURKA AT [facility]. SHE STATES THE PATIENT IS SERVICE CONNECTED FOR SNF, BUT THEY WILL NOT COVER SWING BED STAY, HE WOULD NEED TO GO TO [facility] OR CONTRACTED FACILITY. SHE REQUESTS CLINICALS. CLINICALS FAXED TO HER AT [phone] WITH FAX CONFIRMATION RECEIVED AT 1022NM.
[2018-05-14] MEDS ORDERED: LASIX20 MG PO (09:49)
--- NOTE | 2018-05-14 09:56 | NUR ---
Medications reconciled using facility med list
--- NOTE | 2018-05-14 10:30 | NUR ---
SPOKE WITH YESSI LOPEZ. SHE STATES SHE WILL TAKE PATIENT BACK WHEN HE IS BASELINE, AND NOT REQUIRING INPATIENT REHAB NEEDS. SHE STATES THEY DO MEDICATIONS FOR PATIENT. HE HAS NEBULIZER, OXYGEN SET UP. DISCUSSED HE WILL BE SEEING PT AND OT AGAIN TODAY AND WILL NOT DISCHARGE TODAY.
--- NOTE | 2018-05-14 13:32 | NUR ---
PT UP WITH P.T. STAFF AMBULATING IN HALLWAY. PT WAS WORKING HARD, GAVE PT ENCOURAGEMENT. PT EXPRESSED APPRECIATION, WILL FOLLOW NEEDED
--- NOTE | 2018-05-14 14:23 | NUR ---
SPOKE WITH CELLAR WORKER JESICA WHO STATES PATIENT WOULD HAVE SWING BED COVERAGE WITH [employer] PART A IF IT IS NEEDED. STAFF UPDATED.
--- NOTE | 2018-05-14 14:25 | NUR ---
PT SITTING UP IN CHAIR TAKING A NAP. PT APPEARS COMFORTABLE, FLACC SCALE OF 0/10. PERSONAL SUPPLIES AND CALL LIGHT WITHIN REACH. CLOSE TO RN STATION.
--- NOTE | 2018-05-14 19:22 | NUR ---
RECIEVED BEDSIDE REPORT FROM [facility]. PATIENT RESTING AWAKE IN CHAIR COLORING. 3L VIA NC, NO SIGNS OF DISTRESS. WHITE BOARD UPDATED. CALL LIGHT WITHIN REACH. NO MORE NEEDS AT THIS TIME.
--- NOTE | 2018-05-14 21:36 | NUR ---
ASSESSMENT COMPLETE, REFER TO ASSESSMENT. MEDICATIONS ADMINISTERED PER MAR ORDER. 3L VIA NC, NO SIGNS OF DISTRESS. PATIENT DENIES CHEST PAIN, PAIN, SOB OR DIFFICULTY BREATHING. PATIENT REPORTS NUMBNESS AND TINGLING IN LLE. WARM BLANKET PROVIDED TO PATIENT PER PATIENT REQUEST. SBA PATIENT TO RESTROOM FROM CHAIR WITH FWW, PATIENT SAFELY BACK INTO BED. BED ALARM ON FOR SAFETY. CALL LIGHT WITHIN REACH. NO MORE NEEDS AT THIS TIME.
--- NOTE | 2018-05-14 23:33 | NUR ---
ROUNDED ON PATIENT RESTING AWAKE IN BED WATCHING TV. MOUTH SWABS PROVIDED PER PATIENT REQUEST. CALL LIGHT WITHIN REACH. BED ALARM ON FOR SAFETY.
--- NOTE | 2018-05-15 01:48 | NUR ---
ROUNDED ON PATIENT RETURNING TO BED AFTER USING RESTROOM WITH ASSISTANCE FROM SPIN INSTRUCTOR A SBA WITH FWW. 2 PILLOWS PLACED UNDERNEATH BILATERAL LOWER EXTREMITIES. CALL LIGHT WITHIN REACH. NO MORE NEEDS AT THIS TIME. FOCUSED SKIN ASSESSMENT COMPLETE.
--- NOTE | 2018-05-15 03:27 | NUR ---
Patient up to the rest room. 1 stba/walker to and from the bath room.patient now back to bed.
--- NOTE | 2018-05-15 04:51 | NUR ---
ROUNDED ON PATIENT RESTING IN BED WITH EYES CLOSED, RESPIRATORY RATE IS EVEN AND UNLABORED. CALL LIGHT WITHIN REACH.
--- NOTE | 2018-05-15 05:27 | NUR ---
ROUNDED ON PATIENT SITTING ON TOILET IN RESTROOM WITH EQUIPMENT MECHANIC NEARBY. PATIENT REPORTS HAVING SOME DIFFICULTY BREATHING AND SOB. PATIENT ABLE TO TALK IN CLEAR AND CONCISE SENTENCES. THIS RN NOTIFIED RT THAT PATIENT WOULD LIKE PRN BREATHING TREATMENT.
--- NOTE | 2018-05-15 05:38 | NUR ---
ASSESSMENT COMPLETE, REFER TO ASSESSMENT. PRN BREATHING TREATMENT ADMINISTERED PER PATIENT REQUEST FOR SOB. PATIENT DENIES CHEST PAIN OR PAIN. PATIENT REPORTS EXPERIENCING SOB, PATIENT ABLE TO TALK IN CLEAR AND CONCISE SENTENCES, NO VISIBLE SIGNS OF DISTRESS. PATIENT DENIES EXPERIENCING SOB AFTER PRN BREATHING TREATMENT PER MAR ORDER. BLE ELEVATED ON PILLOWS. CALL LIGHT WITHIN REACH. NO MORE NEEDS AT THIS TIME.
--- NOTE | 2018-05-15 05:53 | NUR ---
PATIENT WAS UP TO THE RESTROOM. BECOME SHORT OF BREATH, BREATHING TREATMENT WAS GIVEN. PATIENT WAS SETTING ON THE EDGE OF BED, VITALS DONE. FRESH WATER GIVEN. PATIENT NOW BACK INTO BED
--- NOTE | 2018-05-15 06:03 | NUR ---
ROUNDED ON PATIENT RESTING AWAKE IN BED WATCHING TV. MEDICATION ADMINISTRATION PER APR ORDER. NO MORE NEEDS AT THIS TIME. BED ALARM ON FOR SAFETY. CALL LIGHT WITHIN REACH.
--- NOTE | 2018-05-15 07:26 | NUR ---
PT BACK FROM RESTROOM TO CHAIR WITH SBA FROM MANAGER SPEECH. PT ALERT AND ORIENTED TO PERSON PLACE AND SITUATION. CALL LIGHT AND H20 IN REACH. PT COMPLIANT WITH CARE AND FLUID RESTRICTION PER [facility]. BEDSIDE REPORT RECEIVED FROM [facility].
--- NOTE | 2018-05-15 08:00 | NUR ---
SPOKE WITH PATIENT AND GRANDDAUGHTER MARTIN IN ROOM. PATIENT IS ALERT, ORIENTED. PATIENT STATES HE FEELS "READY TO GET HOME TODAY". DISCUSSED WITH THEM THAT PT WILL SEE HIM AGAIN TODAY AND IF HE IS STILL DOING WELL, HE MAY BE ABLE TO RETURN TO [facility] AND DO HOME HEALTH REHAB OR OUTPATIENT REHAB. THEY ARE BOTH IN AGREEMENT WITH THIS. CALLED [facility] AND SPOKE WITH YESSI DAY TO SEE IF THEY WANT TO COME SEE HIM BEFORE BEING DISCHARGED. SHE STATES SHE DOESN'T THINK IT WILL BE NECESSARY, SHE HAS BEEN TALKING WITH KIMBERLY MARTIN DAILY AND FEELS UP WITH HIS CONDITION. SHE IS OK WITH HIS DISCHARGING BACK TO FACILITY TODAY. STAFF UPDATED.
--- NOTE | 2018-05-15 08:48 | NUR ---
PT SITTING UP IN CHAIR, EXPRESSES EAGERNESS FOR DISCHARGE. PT ASSESSMENT COMPLETED AND AM VS'S TAKEN. AM MEDS ADMINISTERED -SEE EMAR. PT COMPLIANT WITH CARE AND STATES HE FEELS HE IS READY TO FUNCTION INDEPENDANTLY AT HOME AND STATES HE LIVES WITH HIS GRANDSON AND GRANDAUGHTER WHO HELP OUT HERE AND THERE IF NEEDED. CALL LIGHT AND H20 IN REACH. NO FURTHER CONCERNS OR REQUESTS VOICED. PTS LE'S ELEVATED ON PILLOW AND CHAIR RECLINED. 1-2+ PITTING EDEMA TO BILAT LE'S NOTED. PT DENIES SOB OR PAIN.
--- NOTE | 2018-05-15 11:28 | NUR ---
Report called in to [facility] with Joe Cast, all questions answered. Pt also educated on discharge education and also over CHF and was provided with a CHF packet, all questions answered.
--- NOTE | 2018-05-15 14:35 | NUR ---
PT PLANNING ON DC TODAY, SAID HE WAS FEELING BETTER.EATING LUNCH SEEMED PRETTY PLEASED. PT STATED THAT HE IS LATTER DAY, BUT CONFESSED TO NOT GOING TO CONFESSION IN QUITE SOME TIME. WE HAD A LIVELY DISCUSSION. HE NEVER STOPPED BELIEVING. STATED HE HAD SIBLINGS, BUT COULDN'T REMEMBER IF THEY WERE STILL LIVING. PT MENTIONED THAT HE SERVED IN 2 WARS, BUT THANKFULLY NEVER HAD TO FIRE HIS WEAPON. PT REQUESTED PRAYER, WILL FOLLOW NEEDED
--- NOTE | 2018-05-16 16:04 | NUR ---
CALLED AND TALKED WITH JAMEY AT THE [place] AND SHE STATES HE DOES NOT NEED A GEC FILLED OUT FOR HOME HEALTH ACTIVITIES BUT DOES NEED PAPERWORK FAXED TO [facility] AT [phone] ATTEN: CRIS FOR DR MATIAS. ALSO PER JAMEY I CALLED PATRICA IN THE DEPT THAT HANDLES HH AND LEFT HER A MESSAGE REGARDING THIS PT. FAXED CHART NOTE TO [facility] @[phone] ATT[address] BARB AGUIAR FOR DR MATIAS HE IS OUT OF TOWN RIGHT NOW. RECIEVED A FAX CONFIRMATION.
== END 2018-05-15 13:23 | disposition home health service (06) | DRG 291 ==
LOC: ED 20:54 → MS 22:40
PROVIDERS: ADMIT Student in an Organized Health Care Education/Training Program
DX: I13.0 Hypertensive heart and chronic kidney disease with heart failure and stage 1 through stage 4 chronic kidney disease, or unspecified chronic kidney disease (principal); I50.33 Acute on chronic diastolic (congestive) heart failure; J96.21 Acute and chronic respiratory failure with hypoxia; I69.954 Hemiplegia and hemiparesis following unspecified cerebrovascular disease affecting left non-dominant side; E11.22 Type 2 diabetes mellitus with diabetic chronic kidney disease; N18.3 Chronic kidney disease, stage 3 (moderate); E03.9 Hypothyroidism, unspecified; J44.9 Chronic obstructive pulmonary disease, unspecified; K21.9 Gastro-esophageal reflux disease without esophagitis; E78.5 Hyperlipidemia, unspecified; E79.0 Hyperuricemia without signs of inflammatory arthritis and tophaceous disease; F03.90 Unspecified dementia, unspecified severity, without behavioral disturbance, psychotic disturbance, mood disturbance, and anxiety; F39 Unspecified mood [affective] disorder; G47.33 Obstructive sleep apnea (adult) (pediatric); I48.91 Unspecified atrial fibrillation; I25.10 Atherosclerotic heart disease of native coronary artery without angina pectoris; Z95.1 Presence of aortocoronary bypass graft; Z99.81 Dependence on supplemental oxygen; Z86.718 Personal history of other venous thrombosis and embolism; Z79.02 Long term (current) use of antithrombotics/antiplatelets; Z79.51 Long term (current) use of inhaled steroids; Z79.899 Other long term (current) drug therapy; Z79.891 Long term (current) use of opiate analgesic
CPT/HCPCS: 36415; 71045; 80048; 80053; 81001; 83735; 83880; 84484; 85025; 93005; 93010; 94640; 94667; 94668; 96374; 97110; 97116; 97162; 97165; 99285-25

== ENCOUNTER 2018-05-24 20:31 | Emergency (ER) | payer OTHER, MEDICARE ==
[~2018-05-24] VITALS: Ht 172.7 cm; Wt 92.0 kg
[~2018-05-24 20:31] MED LIST changes: +ASCORBIC ACID500 MG PO; +LASIX20 MG PO; +LIPITOR20 MG PO; +LISINOPRIL20 MG PO; +METOPROLOL SUCC50 MG PO; +PULMICORT0.5 MG/2 M INH
--- OUTSIDE RECORDS SUMMARY | 2018-05-24 20:34 | XMS ---
PreManage Notification: ROSY CERON Security Concrete Block Mason Events No recent Security Events currently on file CRITERIA MET - [facility] - 2 Visits in 30 Days CARE PROVIDERS YVONNE ROGERS [facility] Current PHONE: Unknown Liv Turner Nurse Practitioner: 09/16/2017-Current PHONE: Unknown Dr. Colton Atkins Specialist Current PHONE: [phone] [facility] Current PHONE: [phone] Aleksandar has no Care Guidelines for this patient. Tegan VISIT COUNT (12 MO.) 2 [facility]s [facility] 6 KAMILAH Connors TOTAL 8 NOTE: Visits indicate total known visits. ED/UCC VISIT TRACKING (12 MO.) 05/24/2018 20:31 [facility] [place] TYPE: Emergency COMPLAINT: - FALL/HEAD INJURY 05/12/2018 20:54 KAMILAH Valladares TYPE: Emergency COMPLAINT: - RETAINING WATER 03/20/2018 14:[address] [facility] [address] [facility] TYPE: Emergency DIAGNOSES: - Decreased Oxygen Level (Asymptomatic) - Low oxygen; rt foot swelling - Heart failure, unspecified - Shortness of Breath 02/14/2018 16:53 [facility] [place] TYPE: Emergency COMPLAINT: - STROKE SYMPTOMS 09/13/2017 08:48 KAMILAH Valladares TYPE: Emergency COMPLAINT: - FALL DIAGNOSES: - emergency department manager (current) use of anticoagulants - Personal history of nicotine dependence - Heart failure, unspecified - Chronic obstructive pulmonary disease, unspecified - Hypertensive heart disease with heart failure - Nondisplaced intertrochanteric fracture of left femur, initial encounter for closed fracture - Fall on same level from slipping, tripping and stumbling without subsequent striking against object, initial encounter - Type 2 diabetes mellitus without complications - Pain in left hip - Other manager center (current) drug therapy 07/10/2017 23:51 [facility] [place] TYPE: Emergency COMPLAINT: - CHEST PAIN DIAGNOSES: - Anxiety disorder, unspecified - Essential (primary) hypertension - Other manager center (current) drug therapy - Personal history of nicotine dependence - FPC (current) use of anticoagulants - Type 2 diabetes mellitus without complications - Personal history of pneumonia (recurrent) - Other chest pain - Chest pain, unspecified 06/26/2017 13:42 [facility] [place] TYPE: Emergency COMPLAINT: - CHF 06/11/2017 15:12 [facility] Minnie [facility] TYPE: Emergency DIAGNOSES: - Contusion of left hip, initial encounter - abnormal labs - Abnormal coagulation profile - Fall on same level from slipping, tripping and stumbling without subsequent striking against object, initial encounter - Abnormal Lab - Cough - Contusion of left lower leg, initial encounter INPATIENT VISIT TRACKING (12 MO.) 05/12/2018 22:[address] [facility] [place] TYPE: Medical Surgical COMPLAINT: - HEART FAILURE DIAGNOSES: - FPC (current) use of inhaled steroids - Unspecified dementia without behavioral disturbance - Acute on chronic diastolic (congestive) heart failure - Type 2 diabetes mellitus with diabetic chronic kidney disease - Gastro-esophageal reflux disease without esophagitis - emergency department manager (current) use of antithrombotics/antiplatelets - Chronic obstructive pulmonary disease, unspecified - Presence of aortocoronary bypass graft - Hypothyroidism, unspecified - Unspecified atrial fibrillation - FPC (current) use of opiate analgesic - Hyperlipidemia, unspecified - Other manager center (current) drug therapy - Obstructive sleep apnea (adult) (pediatric) - Atherosclerotic heart disease of [place] coronary artery without angina pectoris - Hemiplegia and hemiparesis following unspecified cerebrovascular disease affecting left non-dominant side - Hyperuricemia without signs of inflammatory arthritis and tophaceous disease - Hypertensive heart and chronic kidney disease with heart failure and stage 1 through stage 4 chronic kidney disease, or unspecified chronic kidney disease - Acute and chronic respiratory failure with hypoxia - Chronic kidney disease, stage 3 (moderate) - Unspecified mood [affective] disorder - Dependence on supplemental oxygen - Personal history of other venous thrombosis and embolism 03/20/2018 14:46 [facility] TYPE: Surgical Services DIAGNOSES: - Acute kidney failure, unspecified - FPC (current) use of anticoagulants - Dependence on supplemental oxygen - Acute diastolic (congestive) heart failure - Heart failure, unspecified - Chronic obstructive pulmonary disease with acute lower respiratory infection - Chronic kidney disease, stage 3 (moderate) - Acute respiratory failure with hypoxia - Chronic respiratory failure with hypoxia 02/14/2018 20:20 KAMILAH Valladares TYPE: Medical Surgical COMPLAINT: - PNA DIAGNOSES: - Gastro-esophageal reflux disease without esophagitis - Acute and chronic respiratory failure with hypoxia - Dependence on supplemental oxygen - Chronic diastolic (congestive) heart failure - Chronic obstructive pulmonary disease with acute lower respiratory infection - Unspecified dementia without behavioral disturbance - Chronic atrial fibrillation - Chronic kidney disease, stage 3 (moderate) - Atherosclerotic heart disease of [place] coronary artery without angina pectoris - emergency department manager (current) use of anticoagulants - Personal history of transient ischemic attack (TIA), and cerebral infarction without residual deficits - Obstructive sleep apnea (adult) (pediatric) - Chronic kidney disease, stage 3 (moderate) - Obstructive sleep apnea (adult) (pediatric) - Unspecified mood [affective] disorder - Presence of coronary angioplasty implant and graft - Chronic atrial fibrillation - Chronic obstructive pulmonary disease with (acute) exacerbation - Gout, unspecified - Chronic obstructive pulmonary disease with acute lower respiratory infection - Dependence on supplemental oxygen - Pneumonia, unspecified organism - Type 2 diabetes mellitus with diabetic chronic kidney disease - Pneumonia due to Streptococcus pneumoniae - Chronic obstructive pulmonary disease with (acute) exacerbation - Acute and chronic respiratory failure with hypercapnia - FPC (current) use of anticoagulants - Hypertensive heart and chronic kidney disease with heart failure and stage 1 through stage 4 chronic kidney disease, or unspecified chronic kidney disease - Acute and chronic respiratory failure with hypoxia - Metabolic encephalopathy - Unspecified mood [affective] disorder - Unspecified dementia without behavioral disturbance - Gout, unspecified - Atherosclerotic heart disease of [place] coronary artery without angina pectoris - Chronic diastolic (congestive) heart failure - Pneumonia due to Streptococcus pneumoniae - Gastro-esophageal reflux disease without esophagitis - Acute and chronic respiratory failure with hypercapnia - Personal history of transient ischemic attack (TIA), and cerebral infarction without residual deficits - Hypertensive heart and chronic kidney disease with heart failure and stage 1 through stage 4 chronic kidney disease, or unspecified chronic kidney disease - Presence of coronary angioplasty implant and graft - Metabolic encephalopathy - Type 2 diabetes mellitus with diabetic chronic kidney disease - Personal history of other venous thrombosis and embolism - Personal history of other venous thrombosis and embolism [facility] DIAGNOSES: - Displaced intertrochanteric fracture of left femur, initial encounter for closed fracture - Chronic obstructive pulmonary disease with acute lower respiratory infection - Personal history of (healed) traumatic fracture - Type 2 diabetes mellitus with unspecified complications 06/26/2017 16:27 [facility] [place] TYPE: Medical Surgical COMPLAINT: - CHF DIAGNOSES: - Acute on chronic diastolic (congestive) heart failure - Type 2 diabetes mellitus with diabetic chronic kidney disease - Gout, unspecified - Atherosclerotic heart disease of [place] coronary artery without angina pectoris - Chronic obstructive pulmonary disease, unspecified - Gastro-esophageal reflux disease without esophagitis - FPC (current) use of anticoagulants - Repeated falls - Personal history of other venous thrombosis and embolism - Alzheimer's disease, unspecified - Unspecified mood [affective] disorder - Personal history of transient ischemic attack (TIA), and cerebral infarction without residual deficits - Chronic atrial fibrillation - Presence of aortocoronary bypass graft - Chronic respiratory failure with hypoxia - Hyperlipidemia, unspecified - Hypothyroidism, unspecified - Other manager center (current) drug therapy - Dementia in other diseases classified elsewhere without behavioral disturbance - FPC (current) use of inhaled steroids - Chronic kidney disease, stage 3 (moderate) [facility]11/2017 [facility] DIAGNOSES: - Paroxysmal atrial fibrillation - Coagulation defect, unspecified - Fall on same level from slipping, tripping and stumbling without subsequent striking against object, initial encounter - Adverse effect of unspecified drugs, medicaments and biological substances, initial encounter - Contusion of left hip, initial encounter - Malignant neoplasm of trigone of bladder - Contusion of left lower leg, initial encounter - Cough - Abnormal coagulation profile [email or web address]
[2018-05-24] MEDS ORDERED: CEPHALEXIN500 MG PO (22:46)
== END 2018-05-24 23:34 | disposition home or self-care (01) ==
LOC: ED 20:31
PROC: 0HQ1XZZ Repair Face Skin, External Approach (ICD-10-PCS; principal; 2018-05-24)
DX: S02.32XA Fracture of orbital floor, left side, initial encounter for closed fracture (principal); S01.81XA Laceration without foreign body of other part of head, initial encounter; W01.198A Fall on same level from slipping, tripping and stumbling with subsequent striking against other object, initial encounter; E11.9 Type 2 diabetes mellitus without complications; I10 Essential (primary) hypertension; Z86.73 Personal history of transient ischemic attack (TIA), and cerebral infarction without residual deficits; J44.9 Chronic obstructive pulmonary disease, unspecified; I50.9 Heart failure, unspecified; I48.91 Unspecified atrial fibrillation; Z87.891 Personal history of nicotine dependence; Z79.899 Other long term (current) drug therapy
CPT/HCPCS: 12011; 70450; 70486; 90471; 90714; 99283-25

== ENCOUNTER 2018-07-26 16:41 | Emergency (ER) | payer MEDICARE ==
[~2018-07-26] VITALS: Ht 172.7 cm; Wt 92.0 kg
[~2018-07-26 16:41] MED LIST changes: +CEPHALEXIN500 MG PO
== END 2018-07-26 19:08 | disposition home or self-care (01) ==
LOC: ED 16:41
DX: S09.90XA Unspecified injury of head, initial encounter (principal); E11.9 Type 2 diabetes mellitus without complications; F41.9 Anxiety disorder, unspecified; I11.0 Hypertensive heart disease with heart failure; I50.9 Heart failure, unspecified; Z87.891 Personal history of nicotine dependence; Z86.73 Personal history of transient ischemic attack (TIA), and cerebral infarction without residual deficits; Z79.899 Other long term (current) drug therapy; W18.30XA Fall on same level, unspecified, initial encounter
CPT/HCPCS: 70450; 99283-25

== ENCOUNTER 2018-07-30 18:06 | Emergency (ER) | payer MEDICARE ==
[~2018-07-30] VITALS: Ht 172.7 cm; Wt 92.0 kg
--- OUTSIDE RECORDS SUMMARY | 2018-07-30 18:08 | XMS ---
PreManage Notification: ROSY CERON Security Supervisor Concrete Stone Finishing Events No recent Security Events currently on file CRITERIA MET - 6 ED Visits in [address] [facility] - 2 Visits in 30 Days CARE PROVIDERS Germain Ellsworth DO [facility] Current PHONE: Unknown Liv Turner Nurse Practitioner: 09/16/2017-Current PHONE: Unknown Dr. Colton Santiago Current PHONE: [phone] [facility] Current PHONE: [phone] Aleksandar has no Care Guidelines for this patient. Tegan VISIT COUNT (12 MO.) 1 [facility] Hooks [facility] 6 KAMILAH Connors TOTAL 7 NOTE: Visits indicate total known visits. ED/UCC VISIT TRACKING (12 MO.) 07/30/2018 18:07 [facility] [place] TYPE: Emergency COMPLAINT: - FALL, HEAD INJURY 07/26/2018 16:42 [facility] [place] TYPE: Emergency COMPLAINT: - FALL DIAGNOSES: - Type 2 diabetes mellitus without complications - Fall on same level, unspecified, initial encounter - Personal history of transient ischemic attack (TIA), and cerebral infarction without residual deficits - Other mcfp (current) drug therapy - Heart failure, unspecified - Anxiety disorder, unspecified - Personal history of nicotine dependence - Unspecified injury of head, initial encounter - Hypertensive heart disease with heart failure 05/24/2018 20:31 [facility] [place] TYPE: Emergency COMPLAINT: - FALL/HEAD INJURY DIAGNOSES: - Laceration without foreign body of other part of head, initial encounter - Fracture of orbital floor, left side, initial encounter for closed fracture - Unspecified atrial fibrillation - Personal history of nicotine dependence - Chronic obstructive pulmonary disease, unspecified - Essential (primary) hypertension - Fall on same level from slipping, tripping and stumbling with subsequent striking against other object, initial encounter - Type 2 diabetes mellitus without complications - Heart failure, unspecified - Other ferry terminal agent (current) drug therapy - Personal history of transient ischemic attack (TIA), and cerebral infarction without residual deficits - Fracture of orbital floor, left side, initial encounter for closed fracture 05/12/2018 20:54 [facility] [place] TYPE: Emergency COMPLAINT: - RETAINING WATER [facility]20[facility]2018 14[facility] DIAGNOSES: - Decreased Oxygen Level (Asymptomatic) - Low oxygen; rt foot swelling - Heart failure, unspecified - Shortness of Breath 02/14/2018 16:53 KAMIL[facility] Olivas [place] TYPE: Emergency COMPLAINT: - STROKE SYMPTOMS 09/13/2017 08:48 KAMILAH Valladares TYPE: Emergency COMPLAINT: - FALL DIAGNOSES: - moth exterminator (current) use of anticoagulants - Personal history [...] - Pain in left hip - Other ferry terminal agent (current) drug therapy INPATIENT VISIT TRACKING (12 MO.) 05/12/2018 22:[address] [facility] [place] TYPE: Medical Surgical COMPLAINT: - HEART FAILURE DIAGNOSES: - longterm (current) use of inhaled steroids - Unspecified dementia without behavioral disturbance - Acute on chronic diastolic (congestive) heart failure - Type 2 diabetes mellitus with diabetic chronic kidney disease - Gastro-esophageal reflux disease without esophagitis - moth exterminator (current) use of antithrombotics/antiplatelets - Chronic obstructive pulmonary disease, unspecified - Presence of aortocoronary bypass graft - Hypothyroidism, unspecified - Unspecified atrial fibrillation - longterm (current) use of opiate analgesic - Hyperlipidemia, unspecified - Other ferry terminal agent (current) drug therapy - Obstructive sleep apnea (adult) (pediatric) - Atherosclerotic heart disease of [place] coronary artery without angina pectoris - Hemiplegia [...] other venous thrombosis and embolism 03/20/2018 14:46 [facility] Minnie [facility] TYPE: Surgical Services DIAGNOSES: - Acute kidney failure, unspecified - longterm (current) use of anticoagulants - Dependence on [...] 3 (moderate) - Atherosclerotic heart disease of [place] coronary artery without angina pectoris - longterm (current) use of anticoagulants - Personal history [...] and chronic respiratory failure with hypercapnia - moth exterminator (current) use of anticoagulants - Hypertensive heart and chronic kidney disease with heart failure and stage 1 through stage 4 chronic kidney disease, or unspecified chronic kidney disease - Acute and chronic respiratory failure with hypoxia - Metabolic encephalopathy - Unspecified mood [affective] disorder - Unspecified dementia without behavioral disturbance - Gout, unspecified - Atherosclerotic heart disease of [place] coronary artery without angina pectoris - Chronic [...] other venous thrombosis and embolism 09/13/2017 15:15 [facility] Sheri [facility] TYPE: Surgical Services DIAGNOSES: - Displaced intertrochanteric fracture of left femur, initial encounter for closed fracture - Chronic obstructive pulmonary disease with acute lower respiratory infection - Personal history of (healed) traumatic fracture - Type 2 diabetes mellitus with unspecified complications [email or web address]
== END 2018-07-30 21:56 | disposition home or self-care (01) ==
LOC: ED 18:06
DX: S00.83XA Contusion of other part of head, initial encounter (principal); E11.9 Type 2 diabetes mellitus without complications; I11.0 Hypertensive heart disease with heart failure; I50.9 Heart failure, unspecified; F41.9 Anxiety disorder, unspecified; I48.91 Unspecified atrial fibrillation; Z79.899 Other long term (current) drug therapy; Z86.73 Personal history of transient ischemic attack (TIA), and cerebral infarction without residual deficits; W07.XXXA Fall from chair, initial encounter
CPT/HCPCS: 70450; 99283-25

== ENCOUNTER 2018-10-26 14:32 | Inpatient (IN) | payer OTHER, MEDICARE ==
[~2018-10-26] VITALS: Ht 172.7 cm; Wt 86.8 kg
[~2018-10-26 14:32] MED LIST changes: -LISINOPRIL20 MG PO; +METOPROLOL SUCC25 MG PO; -METOPROLOL SUCC50 MG PO; +ZESTRIL40 MG PO
--- NOTE | 2018-10-26 21:49 | NUR ---
PT ADMITTED AT 2020 PER STRETCHER FROM ED. PT MOVED FROM STRETCHER TO BED. AFTER ABOUT 5 MIN PT C/O BEING SOB. RT HERE AND BIPAP SET UP AND IN PLACE. PT ALLOWED TO REST. RT ALSO GAVE NEB IN LINE AT THAT TIME. PT NOW WANTING TO WATCH TV AND C/O BEING HUNGRY. ALSO WANTING TO DRINK MUCH WATER HE WANTS. ATTEMPTED TO EXPLAIN WAS ON FLUID RESTRICTION PT STATED HE WOULD RATHER THAN NOT BE ABLE TO DRINK MUCH HE WANTS. PT IS HARD OF HEARING AND HAS HX OF DEMENTIA SO PT HAS DIFFICULTY UNDERSTANDING NEED FOR FLUID RESTRICTION IN LIGHT OF HEART FAILURE. C/O BEING HUNGRY, WILL GET PT SANDWICH. BS 228, GIVEN 3 UNITS INSULIN SUB Q.
--- NOTE | 2018-10-26 22:37 | NUR ---
IS EATING SANDWICH. AND JERMAINE WELL.
--- NOTE | 2018-10-26 22:42 | NUR ---
PT CONT TO INSIST ON MORE FLUIDS TO DRINK. HAS TAKEN IN 300ML WATER AND SODA SO FAR. COUGHED PRODUCTIVLY OF LARGE AMT YELLOW AND SL BLOOD STREAKED SPUTUM.
--- NOTE | 2018-10-26 23:51 | NUR ---
ATE FEW BITES OF SANDWICH, MOST OF GRANOLA BAR AND ALL OF APPLESAUCE. REPOSITIONED UP IN BED. NO SOB. STATES IS NOT SLEEPY AT THIS TIME. DECLINES BIPAP.
--- NOTE | 2018-10-27 01:56 | NUR ---
SLEEPING FOR SHORT PERIODS, WATCHING TV AT THIS TIME. GIVEN SMALL AMT MILK.
--- NOTE | 2018-10-27 03:58 | NUR ---
HAS NOT BEEN SLEEPING. TOOK GOWN OFF AND DID PULL AT [place]. GOWN REPLACED AND PT ADVISED NOT TO PULL AT [place]. URINE HAS BEEN BLOOD TINGED SINCE ADMISSION BUT IS A LITTLE REDDER NOW. PT ALWAYS ASKS FOR SOMETHING TO DRINK AND IS UNABLE TO UNDERSTAND WHY HE CAN'T. EDEMA IN LEGS HAS DECREASED.
--- NOTE | 2018-10-27 06:15 | NUR ---
PT INSISTANT ON HAVING A SNACK AND VERY FREQ ASKING FOR SOMETHING TO DRINK. GIVEN P-NUT BUTTER AND CRACKERS AND SMALL AMT MILK. PT THEN TRYING TO GET UP. ASSISTED TO CHAIR WITH MINMAL 2 PERSON ASSIST. PT IS VERY FORGETFUL AND NEEDS FREQ REMINDERS.
--- NOTE | 2018-10-27 07:36 | NUR ---
PT CARE ASSUMED FROM HOSPITAL CLERK. IN TO CHECK ON PT. SITTING UP IN CHAIR, IN GOOD SPIRITS. PT APPEARS TO BE IN NO DISTRESS THIS AM.
--- NOTE | 2018-10-27 08:28 | NUR ---
PT GIVEN MORNING MEDS, CONTINUES SITTING UP IN CHAIR. HAVING BREAKFAST. PT REQUESTS MORE WATER TO DRINK. REMINDED OF FLUID RESTRICTION. PT AGREEABLE.
--- NOTE | 2018-10-27 08:55 | NUR ---
PT ATTEMPTING TO GET UP OUT OF CHAIR. REORIENTED TO PLACE. PT AGREES TO SIT BACK DOWN. GIVEN WARM BLANKETS. PT REPORTS HE IS COMFORTABLE.
--- NOTE | 2018-10-27 09:18 | EKG ---
[facility] [address] [facility] [place] [address] Signed Atrial fibrillation with slow ventricular response Nonspecific intraventricular conduction delay Nonspecific ST and T wave abnormality Abnormal ECG When compared with ECG of 12-MAY-2018 21:03, Atrial fibrillation has replaced Sinus rhythm Vent. rate has decreased BY 38 BPM Nonspecific intraventricular conduction delay has replaced Incomplete left bundle branch block Confirmed by TAMMI DAVIS MD ([id number]) on 10/27/2018 9:17:42 AM Electronically Signed By: TAMMI DAVIS MD 10/27/18 0918 PATIENT NAME: ROSY CERON Electrocardiogram DATE OF : 31 PHYSICIAN: TAMMI DAVIS MD REPORT #: [id number] REPORT IS CONFIDENTIAL AND NOT TO BE RELEASED WITHOUT AUTHORIZATION
--- NOTE | 2018-10-27 09:37 | NUR ---
PT BACK TO BED FOR ECHO. DR DAVIS IN ROOM. CATH CARE COMPLETE.
--- NOTE | 2018-10-27 09:58 | NUR ---
FINANCE ADVISOR IN TO ATTEMPT ECHO. PT BEGINS TO COUGH AND IS UNABLE TO COMPLETE ECHO AT THIS TIME. AFTER A FEW MIN, PT ABLE TO RECOVER. FINANCE ADVISOR WILL COME BACK
--- NOTE | 2018-10-27 10:18 | NUR ---
PT RESTING, WILL SHOWER AFTER HE SLEEPS. DENTURES REMOVED, BRUSHED AND PLACED AT SINK.
--- NOTE | 2018-10-27 10:30 | NUR ---
PTS FAMILY IN ROOM TO SEE PT.
--- NOTE | 2018-10-27 11:47 | NUR ---
PT UP TO CHAIR FOR LUNCH. BLOOD SUGAR WITHIN RANGE FOR NO INSULIN COVERAGE. PTS URINE APPEARS TO BE CLEARING SOME FROM THE BLOOD.
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
--- NOTE | 2018-10-27 12:16 | NUR ---
BLUEPRINT ASSEMBLER IN TO ATTEMPT ECHO, PT BACK INTO BED.
--- NOTE | 2018-10-27 12:33 | NUR ---
PTS HEART RATE WHILE SLEEPING, DROPS INTO THE 30S, DR DAVIS AWARE OF THIS
--- NOTE | 2018-10-27 12:50 | NUR ---
DR DAVIS NOTIFIED OF TOTAL OUTPUT FOR SHIFT. NEW ORDER FOR ZAROXOLYN.
--- NOTE | 2018-10-27 14:10 | NUR ---
IN TO CHECK ON PT, O2 SATS DIPPING DOWN TO 80%. ATTEMPTED TO GET O2 SATS UP WITH JUST THE NASAL CANNULA. UNSUCCESSFUL. RT CALLED, PT PLACED BACK ON BIPAP, SATS UP TO 98%. PT GIVEN A BED BATH, TOLERATED WELL. NEW SHEETS PLACED AND NYSTATIN TO GROIN. NEW IV PLACED TO LEFT FORARM AND LASIX GIVEN. PT CONTINUES TO TOLERATE BIPAP.
--- NOTE | 2018-10-27 15:05 | NUR ---
PT UP TO BEDSIDE COMMODE FOR LARGE BOWEL MOVEMENT. PT NOTED TO HAVE MODERATE AMOUND OF URINE UNDER HIM IN THE BED. UNMEASURED VOID. PT ABLE TO STAND FOR WEIGH, AMBULATES AROUND ROOM WITH MINIMAL ASSIST.
--- NOTE | 2018-10-27 15:27 | NUR ---
CALL FROM DNS AT [facility] FOR UPDATE ON PT.
--- NOTE | 2018-10-27 16:35 | NUR ---
PT BEGINNING TO BECOME INCREASINGLY CONFUSED LATER INTO THE EVENING. WHEN SPEAKING WITH CAREGIVERS AT [facility], THEY STATED THAT THIS IS NORMAL FOR HIM TO DO IN THE EVENINGS. PT REMAINS UP IN CHAIR, REORIENTED TO PLACE. PT IS WAITING FOR HIS DINNER.
--- NOTE | 2018-10-27 16:47 | NUR ---
PTS O2 TURNED DOWN TO HIS CHRONIC 3L/NC. SAT 92%
--- NOTE | 2018-10-27 17:56 | NUR ---
PT BACK TO BED FROM CHAIR. APARICIO EMPTIED FOR ABOUT 750 ML OF DILUTE URINE.
--- NOTE | 2018-10-27 18:41 | NUR ---
PT APPEARS TO BE SLEEPING, RESTING COMFORTABLY. NO APPARENT DISTRESS
--- NOTE | 2018-10-27 19:07 | NUR ---
REPORT TO RUG INSPECTOR HELPER.
--- NOTE | 2018-10-27 19:40 | NUR ---
PT SLEEPING AT THIS TIME
--- NOTE | 2018-10-27 20:41 | NUR ---
AWAKEND FOR NEB PER RT. JERMAINE WELL. HS CARE DONE AND MEDS GIVEN. CATH CARE DONE.DENTURES OUT TO SOAK. DENIES PAIN. STATES IS READY TO GO TO SLEEP.
--- NOTE | 2018-10-27 21:26 | NUR ---
PT ASKING FOR FOOD AND DRINK, GIVEN SUGAR FREE PUDDING AND LOW SODIUM BROTH. C/O PAIN L ARM SALINE LOCK SITE. SITE GOOD BUT DC'D PER PAIN. PRESSURE DRSG APPLIED PT DID HAVE OOZING.
--- NOTE | 2018-10-27 22:00 | NUR ---
PT NOT SLEEPING AND SLEPT VERY LITTLE LAST NIGHT. IS ALSO FREQ ASKING FOR SOMTHING TO EAT AND DRINK. PT IS UNABLE TO REMEMBEROR UNDERSTAND FLUID AND DIET RESRTICITONS, STATES HE WOULD RATHER THAN NOT HAVE FOOD AND DRINK. DR DAVIS CALLED AND PT GIVEN 50MG TRAZADONE PO FOR REST CONCERNED ABOUT SLEEP DEPRIVATION.
--- NOTE | 2018-10-27 23:00 | NUR ---
PT CALLING OUT THAT HE NEEDS HELP, FOUND STANDING AT BEDSIDE INDICATING NEED TO GO TO BR. ASSISTED TO BSC AND HAD VERY SMALL LIQ STOOL. BACK TO BED WITHOUT SOB. GIVEN CARTON OF MILK FOR SNACK. HAS LARGE URINE OUT PUT. URINE IS SL ORANGE TINGED IF DUE TO OLD BLOOD.
--- NOTE | 2018-10-27 23:44 | NUR ---
UP TO BSC FOR SMALL TO MED LIQ STOOL. PT DID CALL FOR ASSISTANCE. BED ALARM IS ON.
--- NOTE | 2018-10-28 01:45 | NUR ---
HAS BEEN SLEEPING. AWAKE BRIEFLY TO ASK FOR FOOD AND DRINK BUT ABLE TO GO BACK TO SLEEP.
--- NOTE | 2018-10-28 03:03 | NUR ---
P USED CALL LIGHT TO INDICATE NEED TO GO TO BATHROOM AND WAS HUNGRY. ASSISTED TO BSC, PT FELT THAT HE URINATED BUT NO BM. APARICIO IS DRAINING WELL. BACK TO BED AND GIVEN MILD AND APPLE SAUCE.
--- NOTE | 2018-10-28 05:00 | NUR ---
PT IS SLEEPING. SATS LOW 90'S.
--- NOTE | 2018-10-28 06:05 | NUR ---
AWAKENED BY LAB FOR DRAW. AT 100% OF YOGURT. THIS PAST SHIFT PT HAS HAD 2 CARTONS OF MILK PEANUT BUTTER AND CRACKERS AND APPLESAUCE BESIDES THE YOGURT. UP TO BSC WITH 1 PERSON ASSIST TO HAVE MOD, SOFT BROWN BM WITH SOME UNDIGESTED FOOD.
--- NOTE | 2018-10-28 07:42 | NUR ---
CALL LIGHT ON, PT REQUESTING BREAKFAST. PT SITTING UP IN BED, PLEASANT AND TALKATIVE. ASSESSMENT COMPLETE. VS COMPLETE. PT ORIENTED TO PLACE, NOT TIME. SCD'S IN PLACE. CALL LIGHT IN REACH.
--- NOTE | 2018-10-28 12:10 | NUR ---
PT UP TO RECLINER WITH MINIMAL TWO PERSON ASSIST AND FWW. JERMAINE WELL, NO SOB NOTED. O2 SATS 92 ON 3L NC, HR IN THE 80'S. APARICIO DRAINING QUANTITY SUFFICIENT PINK TINGED URINE. CALL LIGHT IN REACH.
[2018-10-28] MEDS ORDERED: LASIX20 MG PO (12:42)
--- NOTE | 2018-10-28 13:15 | NUR ---
MED REC COMPLETE
--- NOTE | 2018-10-28 13:18 | NUR ---
PT IN RECLINER VISING WITH LATESHA, ALERT AND TALKATIVE. DENIES PAIN OR SOB. CALL LIGHT IN REACH.
--- NOTE | 2018-10-28 14:00 | NUR ---
PT TRANSFERED TO ROOM 110 AT THIS TIME. PT ALERT AND ORIENTED AT THIS TIME. NO REPORTS OF PAIN. BEDSIDE REPORT FROM RANJITH [facility]. KAMLESH ADY FROM [facility] IN ROOM TO SEE PT WELL.
--- NOTE | 2018-10-28 15:20 | NUR ---
PT UP TO SHOWER WITH COMMUNICATIONS ADVISOR AT THIS TIME.
--- NOTE | 2018-10-28 15:28 | NUR ---
RECEIVED A PHONE CALL FROM PAOLA KIM [phone]. SHE STATES THEY HAVE BEEN TRYING TO TALK WITH GRANDDAUGHTER MARTIN REGARDING POSSIBLE PLACEMENT IN SNF OR MEMORY CARE BASED ON HIS WORSENING DEMENTIA AND HIS PROBABLY NOT MEETING ASSISTED LIVING MUCH LONGER. SHE STATES THEY WOULD LIKE THE HOSPITAL TO FILL OUT A GEC AND SEND IT TO THEIR OFFICE. SHE STATES THEY HAVE A CONTRACT WITH [facility] OR WOULD LIKE TO PLACE HIM ON THE [facility]. THIS INFORMATION WAS PASSED ON TO BETTE DAYSERVICE CORRESPONDENTTRANSPORT OPERATIONS INSPECTOR.
--- NOTE | 2018-10-28 15:58 | NUR ---
CALLED TO PT GRANDDAUGHTER MARTIN HARRIS FOR PT AT [phone] AND ASKED HER TO CALL AND TALK WITH YESSI AT [facility] AND THEN AGAIN ATTEMPT TO CALL THE [facility] REGARDING HER GRANDFATHER. SHE STATED THAT SHE HAD ATTEMPTED TO GET A HOLD OF SOMEONE AT THE [facility] AND GOT NO ANSWER. STATED SHE WOULD CALL [facility] AND TALK WITH YESSI AND THEN SHE WOULD AGAIN CALL THE [facility]. REPORTED THIS INFORMATION TO Helena LOVE APARTMENT ASSISTANT MANAGER ALSO.
--- NOTE | 2018-10-28 17:28 | NUR ---
PT SITTING IN CHAIR. PT HAS NO NEEDS AT THIS TIME.
--- NOTE | 2018-10-28 18:00 | NUR ---
PT TRANSFERED FROM CCU THIS AFTERNOON. AFTER TRANSFER PT HAS HAD SHOWER, DAILY WT. TAKEN. PT HAS BEEN ASKING FOR MORE FLUIDS CONSTANT, HE HAS TO BE LIMITED DUE FLUID RESTRICTION. PT IS ONE PERSON ASSIST, GREAT APPETITE. HE HAS BEEN COOPERATIVE WITH CARE. POSSIBLE DISCHARGE IN 1-2 DAYS
--- NOTE | 2018-10-28 20:00 | NUR ---
PATIENT IN NO DISTRESS, CALL LIGHT IN REACH, GIVEN, 100MLS DIET COKE, PATIENT WATCHING TV.
--- NOTE | 2018-10-28 21:14 | NUR ---
PATIENT WATCHING RESTING ON TV AND GETTING A NEB TREATMENT FROM RT RIGHT NOW.
--- NOTE | 2018-10-28 22:00 | NUR ---
TOOK PATIENT TO BATHROOM USING WALKER. PATIENT HAD XL FORMED BOWEL MOVEMENT. PATIENT IS IN BED. PULL UPS AND PANTS ON PER PATIENT'S REQUEST. BED ALARM ON.
--- NOTE | 2018-10-29 00:13 | NUR ---
PATIENT RESTING QUIETLY WITH EVEN AND REGULAR RESPIRATIONS, EYES CLOSED, IN SEMI-FOWLERS POSITION. CALL LIGHT IN REACH AND BED ALARM ON.
--- NOTE | 2018-10-29 02:12 | NUR ---
PATIENT IS RESTING QUIETLY IN SEMI-FOWLERS POSITON, EYES CLOSED, RESPIRATIONS REGULAR AND JABIER AND CALL LIGHT IN PLACE.
--- NOTE | 2018-10-29 04:15 | NUR ---
PATIENT RESTING IN SEMI-FOWLERS POSITION, EYES CLOSED RESPIRATIONS REGULAR AND EVEN AND CALL LIGHT IN REACH.
--- NOTE | 2018-10-29 05:38 | NUR ---
PATIENT CONTINUES TO REST WELL, RESPIRATIONS REGULAR AND EVEN AND PATIENT HAS HAD NO NEEDS OR REQUESTS EXCEPT TO GO TO THE REST ROOM. HAS MAINTAINED FLUID RESTRICTION.
--- NOTE | 2018-10-29 06:09 | NUR ---
PATIENT GOT UP AND HAD A SMALL FORMED BM. 1PSBA AND FWW. APARICIO DRAINING WELL, IV FLUSHES WELL. PATIENT UP IN THE CHAIR NOW WITH CHAIR ALARM ON AND HIS 1ST 250MLS OF COFFEE FOR THE DAY.
--- NOTE | 2018-10-29 07:38 | NUR ---
Pt sitting up in chair at this time. Pt is on 3l oxygen per nc per home setting. Pt alert to self, speaking to staff and appears to be in good spirits this am. Pt denies pain and other needs. Call light within reach. Close to RN station.
--- NOTE | 2018-10-29 07:45 | NUR ---
patient sitting up in chair with family in room. talked to patient about shaving and a shower today. call button in reach. no other needs at this time.
--- NOTE | 2018-10-29 10:35 | NUR ---
PT WAS SITTING IN HIS CHAIR, FINISHING BREAKFAST. HE SEEMED TO REALLY ENJOY IT. HE ALSO COMPLIMENTED THE PARACHUTE TAPER STAFF FOR SUCH GREAT MEALS. WE VISITED, PT MENTIONED THAT HE IS HOLINESS, AND I INFORMED HIM THAT ON HIS SPIRITUAL PREFERENCE FROM ADMISSION, IT STATES NO PREFERENCE. HE REQUESTED THAT BE CHANGED, WHICH I DID. I ALSO INFORMED BARB PORTER THAT PT WOULD LIKE TO VIEW MASS THIS AM. HAD PLEASANT VISIT, EXTENDED A BLESSING. WILL FOLLOW NEEDED
--- NOTE | 2018-10-29 11:02 | NUR ---
Heart Failure RN Note: Patient records reviewed. I have spoken to Kita Robert RN at [facility] about MR Winter. She completed assessment yesterday . She confirms that he is not always making good choices and she has asked staff not to serve him tomato juice and family to quit bringing in V-8. An occasional no sodium product would be acceptable. They are already doing daily weights on him since April but have not found the [place] physicians responsive to their reports on weight gain. I will confer with [place] attorney general.
--- NOTE | 2018-10-29 11:05 | NUR ---
SPOKE WITH PATIENT IN ROOM. UP IN CHAIR. PATIENT CONFUSED, THINKS I AM HIS GRANDDAUGHTER. PATIENT PLEASANT, BUT REMAINS CONFUSED. ORIENTED TO SELF ONLY. STAFF AWARE, CHAIR ALARM ON. PATIENT REQUESTS A "PEPSI". STAFF AWARE.
--- NOTE | 2018-10-29 13:36 | NUR ---
REMOVED APARICIO WNL, PT TOLERATED WELL. CHARTED 250ML OUT IN BAG. PT GIVEN 120ML OF DIET PEPSI
--- NOTE | 2018-10-29 15:34 | NUR ---
PT SITTING UP IN THE CHAIR AT THIS TIME WORKING WITH LEGOS. PT ON 2L OXYGEN PER NC, RESP EVEN AND NON LABORED. PT DENIES NEEDS. PERSONAL SUPPLIES AND CALL LIGHT WITHIN REACH.
--- NOTE | 2018-10-29 17:12 | NUR ---
A&OX2, FORGETFUL AND CONFUSED TO SITUATION AT TIMES. 2L OXYGEN, 3L PER HOME. TOLERATING 60G CARB DIET. BS SUGAR CHECKS. 1PA WITH WALKER TO GRACY. PT/OTJudd SANTOS. PT CLOSE TO RN STATION, CALLS APPROP.
--- NOTE | 2018-10-29 19:30 | NUR ---
PATIENT SITTING IN HIS BEDSIDE ARM CHAIR WATCHING TV. NO NEEDS AT THIS TIME. GOT REEPORT. CALL LIGHT IN REACH.
--- NOTE | 2018-10-29 21:58 | NUR ---
BARB olivares asked if i could do a BS check on pt, the result was 148. He charted it for me. BARB Olivares and SANDOR Jade in room.
--- NOTE | 2018-10-30 00:40 | NUR ---
PATIENT RESTING QUIETLY ON 3L/NC IN SEMI-FOWLERS POSITION. RESPIRATIONS REGULAR AND EVEN. EYES CLOSED. CALLLIGHT IN REACH.
--- NOTE | 2018-10-30 02:02 | NUR ---
PATIENT CONTINUES TO REST QUIETLY IN SEMI-FOWLERS POSITION WITH EVEN AND REGULLAR RESPIRATIONS. EYES CLOSED AND IN NO DISTRESS. CALL LIGHT IN REACH.
--- NOTE | 2018-10-30 03:05 | NUR ---
PATIENT RESTING QUIETLY IN SEMI-FOWLERS POSITION, RESPIRATIONS ARE REGULAR AND EVEN, EYES CLOSED, AND CALL LIGHT IN REACH.
--- NOTE | 2018-10-30 03:52 | NUR ---
PATIENT TRYING TO GET STAFF TO GIVE HIM MORE FLUIDS, BUT HE HAS ALREADY MEET HIS ORAL RESTRICTION FOR THE DAY. PATIENT UP RIGHT NOW TO THE BATHROOM WITH YAYA PATTEN USING FWW AND 1PSBA.
--- NOTE | 2018-10-30 05:08 | NUR ---
PATIENT HAS RESTED WELL MOST OF THE NIGHT EXCEPT FOR WHEN HE HAD TO GET UP TO USE THE RESTROOM. NO C/O PAIN AND IS VOIDING WITHOUT HIS CATH, TAKING FOOD WELL AND STILL TRYING TO GET STAFF TO GIVE HIM MORE ORAL FLUIDS THAN ALLOWED, BUT HE HAS REMANED IN GOOD SPIRTS.
--- NOTE | 2018-10-30 07:45 | NUR ---
0720: Pt sleeping and wakes to voice. He appears comfortable and denies any problems. Call lundberg within reach and bed alarm is turned on.
--- NOTE | 2018-10-30 08:36 | NUR ---
PT DENIES ANY SOB AT THIS TIME. CALL FOSTER IS TURNED ON, SCD'S ARE ON AND RUNNING. PT NOW RECIEVING A BREATHING TREATMENT.
--- NOTE | 2018-10-30 10:00 | NUR ---
SPOKE WITH YESSI LOPEZ REGARDING PATIENT POSSIBLE RETURN TO FACILITY. SHE STATES SHE IS FINE WITH THIS, DISCUSSED HIS CONTINUED CONFUSION, AT TIMES USING CALL LIGHT APPROPROPRIATELY AND OTHERS NOT. DISCUSSED WE HAD BED ALARM AND CHAIR ALARM ON FOR SAFETY. DISCUSSED HIS CONFUSION SEEMS WORSE IN EVENING AND NIGHT. SHE WOULD STILL LIKE TO HAVE HOME HEALTH PT ORDERED TO CONTINUE STRENGTH HE HAS HAD MULTIPLE FALLS. DISCUSSED [facility] IN CASE HE NEEDS TO BE SENT TO HIGHER OF LEVEL OF CARE. SHE STATES THEY ARE STILL WILLING TO TAKE HIM, BUT THAT DEMENTIA CARE WILL PROBABLY BE NEEDED SOON. DISCUSSED STAFF WILL CALL THEM IF HE IS DISCHARGED BACK TODAY. QUESTIONS ANSWERED.
--- NOTE | 2018-10-30 10:36 | NUR ---
Pt resting in his chair having just finished eating breakfast. Pt states he will not eat anymore unless he receives additional water. He was informed that he has reached his morning limit and he ordered me to remove the rest of his breakfast. Pt resting in his chair with the alarm on and his feet elevated.
[2018-10-30] MEDS ORDERED: FUROSEMIDE40 MG PO (12:02)
[2018-10-30] MEDS ORDERED: LASIX20 MG PO (12:04)
--- NOTE | 2018-10-30 12:34 | NUR ---
PT EATING LUNCH AT THIS TIME AND HE DENIES ANY SOB OR OTHER PROBLEMS.
--- NOTE | 2018-10-30 13:00 | NUR ---
FAXED GEC ([facility]) TO [place] [phone]. FAX CONFIRMATION RECEIVED 10/30/18 1258PM.
--- NOTE | 2018-10-30 13:13 | NUR ---
PT WALKING WITH PHYSICAL THERAPY AT THIS TIME.
--- NOTE | 2018-10-30 14:00 | NUR ---
SPOKE WITH JAMEY FROM [place] REGARDING [facility]. DISCUSSED DECISION WAS MADE FOR PATIENT TO RETURN TO ASSISTED LIVING, BUT THAT THE RN THERE FEELS HE SHOULD BE MOVED TO MEMORY CARE SOON. SHE REQUESTS SOME FURTHER DOCUMENTATION FROM HERE. SHE IS FAXING A REQUEST FOR WHAT SHE NEEDS.
--- NOTE | 2018-10-30 14:09 | NUR ---
I CALLED AT 1300 AND AGAIN AT 1345 TO ROSI LOPEZ TO GIVE REPORT AND THE NURSE WAS UNAVAIBLE BOTH TIMES. THE STAFF STATE THE NURSE WILL CALL ME LATER TO RECIVE REPORT. OKAY GIVEN BY THE STAFF TO SEND THE PT THE PT'S GRANDAUGHBECKY IS HERE AND READY TO TAKE HIM. THE PT WAS DISCHARGED AT 1400.
--- NOTE | 2018-10-30 14:32 | NUR ---
PT SITTING IN CHAIR, ENJOYING HIS LUNCH. HE HAD HIS DESSERT FIRST AND TOOK GREAT PRIDE IN DOING SO. CONTINUES TO CONFUSE ME WITH THE DR. ASKED FOR HELP OPENING HIS SODA, GAVE A BLESSING. WILL FOLLOW NEEDED
--- NOTE | 2018-10-30 14:32 | NUR ---
Report was called to Kita DAY at [facility].
--- NOTE | 2018-10-30 17:15 | NUR ---
FAXED TO [facility] PER REQUEST TO [phone] SENT: FACE SHEET/H&P/PT/OT EVALS/DISCHARGE PACKET. FAX CONFIRMATION RECEIVED 10/30/18 502PM.
== END 2018-10-30 14:00 | disposition home health service (06) | DRG 291 ==
LOC: ED 14:32 → MS 18:49 → CCU 18:49 → MS 10-28 14:00
PROVIDERS: ADMIT Internal Medicine
PROC: 5A09357 Assistance with Respiratory Ventilation, Less than 24 Consecutive Hours, Continuous Positive Airway Pressure (ICD-10-PCS; principal; 2018-10-26)
DX: I13.0 Hypertensive heart and chronic kidney disease with heart failure and stage 1 through stage 4 chronic kidney disease, or unspecified chronic kidney disease (principal); J96.21 Acute and chronic respiratory failure with hypoxia; I50.23 Acute on chronic systolic (congestive) heart failure; J96.22 Acute and chronic respiratory failure with hypercapnia; N18.3 Chronic kidney disease, stage 3 (moderate); E11.22 Type 2 diabetes mellitus with diabetic chronic kidney disease; I48.2 Chronic atrial fibrillation; K21.9 Gastro-esophageal reflux disease without esophagitis; J43.1 Panlobular emphysema; I25.10 Atherosclerotic heart disease of native coronary artery without angina pectoris; E78.5 Hyperlipidemia, unspecified; E03.9 Hypothyroidism, unspecified; G30.9 Alzheimer's disease, unspecified; F02.80 Dementia in other diseases classified elsewhere, unspecified severity, without behavioral disturbance, psychotic disturbance, mood disturbance, and anxiety; F39 Unspecified mood [affective] disorder; Z79.02 Long term (current) use of antithrombotics/antiplatelets; Z95.1 Presence of aortocoronary bypass graft; Z87.891 Personal history of nicotine dependence; Z99.81 Dependence on supplemental oxygen; Z79.891 Long term (current) use of opiate analgesic; Z79.899 Other long term (current) drug therapy; Z79.51 Long term (current) use of inhaled steroids
CPT/HCPCS: 36415; 36600; 51702; 71045; 80048; 80053; 80164; 81001; 82607; 82728; 82746; 82803; 83540; 83735; 83880; 84466; 84484; 85025; 85045; 87088; 93005; 93010; 93306; 94640; 94660; 94760; 97116; 97162; 97165; 97530; 99285-25; J1815; J1940; J2930; J3475

== ENCOUNTER 2018-11-19 05:09 | Emergency (ER) | payer OTHER, MEDICARE ==
[~2018-11-19] VITALS: Ht 172.7 cm; Wt 95.2 kg
[~2018-11-19 05:09] MED LIST changes: +FUROSEMIDE40 MG PO
--- OUTSIDE RECORDS SUMMARY | 2018-11-19 05:12 | XMS ---
PreManage Notification: ROSY CERON Security Car Top Bolter Events No recent Security Events currently on file CRITERIA MET - [facility] - 2 Visits in 30 Days CARE PROVIDERS Germain Ellsworth DO [facility] Current PHONE: Unknown Liv Turner Nurse Practitioner: 09/16/2017-Current PHONE: Unknown Dr. Colton Santiago Current PHONE: [phone] [facility] Current PHONE: [phone] Aleksandar has no Care Guidelines for this patient. Tegan VISIT COUNT (12 MO.) [address] Tiffanie Hartman 7 KAMILAH Connors TOTAL 8 NOTE: Visits indicate total known visits. ED/UCC VISIT TRACKING (12 MO.) 11/19/2018 05:09 [facility] [place] TYPE: Emergency COMPLAINT: - SOB 10/26/2018 14:33 [facility] [place] TYPE: Emergency COMPLAINT: - ACUTE ON CHRONIC RESPIRATORY FAILURE 07/30/2018 18:07 [facility] [place] TYPE: Emergency COMPLAINT: - FALL, HEAD INJURY DIAGNOSES: - Type 2 diabetes mellitus without complications - Anxiety disorder, unspecified - Contusion of other part of head, initial encounter - Heart failure, unspecified - Hypertensive heart disease with heart failure - Unspecified atrial fibrillation - Unspecified injury of head, initial encounter - Other usp (current) drug therapy - Fall from chair, initial encounter - Personal history of transient ischemic attack (TIA), and cerebral infarction without residual deficits 07/26/2018 16:[address] [facility] [facility] [place] TYPE: Emergency COMPLAINT: - FALL DIAGNOSES: - Type 2 diabetes mellitus without complications - Fall on same level, unspecified, initial encounter - Personal history of transient ischemic attack (TIA), and cerebral infarction without residual deficits - Other termination clerk (current) drug therapy - Heart failure, unspecified [...] complications - Heart failure, unspecified - Other usp (current) drug therapy - Personal history of transient ischemic attack (TIA), and cerebral infarction without residual deficits - Fracture of orbital floor, left side, initial encounter for closed fracture 05/12/2018 20:54 [facility] [place] TYPE: Emergency COMPLAINT: - RETAINING WATER 03/20/2018 14:[address] Tiffanie [facility] TYPE: Emergency DIAGNOSES: - Decreased Oxygen Level (Asymptomatic) - Low oxygen; rt foot swelling - Heart failure, unspecified - Shortness of Breath 02/14/2018 16:53 [facility] [place] TYPE: Emergency COMPLAINT: - STROKE SYMPTOMS INPATIENT VISIT TRACKING (12 MO.) 10/26/2018 18:49 [facility] [place] TYPE: Medical Surgical COMPLAINT: - ACUTE ON CHRONIC RESPIRATORY FAILURE DIAGNOSES: - Unspecified mood [affective] disorder - Dementia in other diseases classified elsewhere without behavioral disturbance - group home (current) use of antithrombotics/antiplatelets - Acute on chronic systolic (congestive) heart failure - Panlobular emphysema - group home (current) use of opiate analgesic - 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 - Personal history of nicotine dependence - Presence of aortocoronary bypass graft - Chronic atrial fibrillation - group home (current) use of inhaled steroids - Other usp (current) drug therapy - Hypothyroidism, unspecified - Alzheimer's disease, unspecified - Acute and chronic respiratory failure with hypoxia - Hyperlipidemia, unspecified - Hypertensive heart and chronic kidney disease with heart failure and stage 1 through stage 4 chronic kidney disease, or unspecified chronic kidney disease - Dependence on supplemental oxygen - Chronic kidney disease, stage 3 (moderate) - Gastro-esophageal reflux disease without esophagitis - Acute and chronic respiratory failure with hypercapnia - Type 2 diabetes mellitus with diabetic chronic kidney disease 05/12/2018 22:40 [facility] [place] TYPE: Medical Surgical COMPLAINT: - HEART FAILURE DIAGNOSES: - group home (current) use of inhaled steroids - Unspecified dementia without behavioral disturbance - Acute on chronic diastolic (congestive) heart failure - Type 2 diabetes mellitus with diabetic chronic kidney disease - Gastro-esophageal reflux disease without esophagitis - group home (current) use of antithrombotics/antiplatelets - Chronic obstructive pulmonary disease, unspecified - Presence of aortocoronary bypass graft - Hypothyroidism, unspecified - Unspecified atrial fibrillation - group home (current) use of opiate analgesic - Hyperlipidemia, unspecified - Other termination clerk (current) drug therapy - Obstructive sleep apnea (adult) (pediatric) - 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 - Hemiplegia [...] other venous thrombosis and embolism 03/20/2018 14:46 [facility] Minnie [facility] TYPE: Surgical Services DIAGNOSES: - Acute kidney failure, unspecified - group home (current) use of anticoagulants - Dependence on supplemental oxygen - Acute diastolic (congestive) heart failure - Heart failure, unspecified - Chronic obstructive pulmonary disease with acute lower respiratory infection - Chronic kidney disease, stage 3 (moderate) - Heart failure, unspecified - Acute respiratory failure with hypoxia - Chronic respiratory failure with hypoxia 02/14/2018 20:20 [facility] [place] TYPE: Medical Surgical COMPLAINT: - PNA DIAGNOSES: [...] 3 (moderate) - 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 - termite control representative (current) use of anticoagulants - Personal history [...] and chronic respiratory failure with hypercapnia - group home (current) use of anticoagulants - Hypertensive heart and chronic kidney disease with heart failure and stage 1 through stage 4 chronic kidney disease, or unspecified chronic kidney disease - Acute and chronic respiratory failure with hypoxia - Metabolic encephalopathy - Unspecified mood [affective] disorder - Unspecified dementia without behavioral disturbance - Gout, unspecified - 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
--- NOTE | 2018-11-19 17:59 | EKG ---
[facility] [address] [place] [address] Signed Atrial fibrillation with premature ventricular or aberrantly conducted complexes Low voltage QRS Incomplete left bundle branch block Nonspecific ST and T wave abnormality Prolonged QT Abnormal ECG When compared with ECG of 26-OCT-2018 14:46, Questionable change in QRS axis Confirmed by MISAEL TINAJERO MD ([id number]) on 11/19/2018 5:59:03 PM Electronically Signed By: MISAEL TINAJERO MD 11/19/18 1759 PATIENT NAME: OSMANYROSY REYMUNDO Electrocardiogram DATE OF : 31 PHYSICIAN: MISAEL TINAJERO MD REPORT #: [id number] REPORT IS CONFIDENTIAL AND NOT TO BE RELEASED WITHOUT AUTHORIZATION
== END 2018-11-19 10:15 | disposition home or self-care (01) ==
LOC: ED 05:09
DX: R06.02 Shortness of breath (principal); E11.9 Type 2 diabetes mellitus without complications; I11.0 Hypertensive heart disease with heart failure; I50.9 Heart failure, unspecified; F41.9 Anxiety disorder, unspecified; Z86.73 Personal history of transient ischemic attack (TIA), and cerebral infarction without residual deficits; Z87.01 Personal history of pneumonia (recurrent); Z87.891 Personal history of nicotine dependence; Z79.899 Other long term (current) drug therapy
CPT/HCPCS: 71045; 80053; 83605; 83880; 84484; 85025; 93005; 93010; 94640; 99285-25

== ENCOUNTER 2018-11-21 11:01 | Observation (INO) | payer OTHER ==
[~2018-11-21] VITALS: Ht 172.7 cm; Wt 90.0 kg
--- OUTSIDE RECORDS SUMMARY | ~2018-11-21 | XMS | Clinical Summary ---
Demographics + + + | Address | [address] | | | [place] [address] | + + + | Home Phone | | + + + | Preferred Language | Unknown | + + + | Marital Status | Unknown | + + + | Pentecostalism Affiliation | Unknown | + + + | Race | Unknown | + + + | Ethnic Group | Unknown | + + + Author + + + | Author | [facility] (Historical as of | | | 09-27-18) | + + + | Organization | [facility] (Historical as of | | | 09-27-18) | + + + | Address | Unknown | + + + | Phone | Unavailable | + + + Support + + +---------+ + | Name | Relationship | Address | Phone | + + +---------+ + | Kely Cruz | ECON | Unknown | | + + +---------+ + Care Team Providers + +------+ + | Care Radio Electronics Technician Name | Role | Phone | + +------+ + | Lizzy Wade Sheri | PP | | + +------+ + Allergies Not on File Current Medications Not on file Active Problems Not on file Social History + +-------+ +--------+------+ | Tobacco Use | Types | Packs/Day | Years | Date | | | | | Used | | + +-------+ +--------+------+ | Never Assessed | | | | | + +-------+ +--------+------+ + + + | Sex Assigned at | Date Recorded | | | | + + + | Not on file | | + + + Plan of Treatment + + + + + | Health Maintenance | Due Date | Last Done | Comments | + + + + + | Vaccine: | | | | | Dtap/Tdap/Td (1 - | 3 | | | | Tdap) | | | | + + + + + | Vaccine: Zoster (1 | | | | | of 2) | 4 | | | + + + + + | Vaccine: | | | | | Pneumococcal 65+ | 9 | | | | Low/Medium Risk (1 | | | | | of 2 - PCV13) | | | | + + + + + | Vaccine: Influenza | | | | | (#1) | 9 | | | + + + + + Results Not on filefrom Last 3 Months Insurance + +--------+ +------+ + + | Payer | Benefi | Subscriber | Type | Phone | Address | | | t Plan | ID | | | | | | / | | | | | | | Group | | | | | + +--------+ +------+ + + | [place] | [id number] | | +- | [id number] | | ADMINISTRATION | CHOICE | | | [id number] | | | | | | [address] [place], [place] | | | | | | | [phone] | + +--------+ +------+ + + | [employer] | [place] | [id number] | | +- | [employer] [id number] | | ADMINISTRATION | [place] | | | [id number] | | [address] | | | | [address] [place], [place] | | | [place] | | | | [phone] | | | ON | | | | | + +--------+ +------+ + + + +--------+ +--------+ + + | Guarantor Name | Accoun | Relation to | Date | Phone | Billing Address | | | t Type | Patient | of | | | | | | | | | | + +--------+ +--------+ + + | ROSY CERON | Vetera | Self [birth year] Home: | [address] | | | ns | | [phone] | [phone] [place] [address] | | | Admini | | [phone] | | | | strati | | | | | | | on | | | | | + +--------+ +--------+ + +"
--- OUTSIDE RECORDS SUMMARY | ~2018-11-21 | XMS | Encounter Summary ---
Demographics + + + | Address | [address] | | | [place] [address] | + + + | Home Phone | | + + + | Preferred Language | Unknown | + + + | Marital Status | Single | + + + | Catholic Affiliation | Unknown | + + + | Race | Unknown | + + + | Ethnic Group | Unknown | + + + Author + + + | Author | [facility] | | | and [place] | + + + | Organization | [facility] | | | and [place] | + + + | Address | Unknown | + + + | Phone | Unavailable | + + + Support + + + + + | Name | Relationship | Address | Phone | + + + + + | Kely Cruz | ECON | Unknown | | + + + + + | Noy Oliver | ECON | [address] | | | | | [place] | | | | | [phone] | | + + + + + Care Team Providers + +------+ + | Care Supervisor Mapping Name | Role | Phone | + +------+ + | Nona Davis MD | PCP | | + +------+ + Encounter Details +--------+ + + + + | Date | Type | Department | Care Team | Description | +--------+ + + + + | 08/28/ | Orders Only | [facility] | Kimo Cisneros, | Malignant neoplasm | | 2019 | | [address] | MD [address] | of overlapping sites | | | | [place], [place] | [place], [place] | of bladder (HCC) | | | | [address] | [id number] | (Primary Dx) | | | | [phone] | | | +--------+ + + + + Social History + + + +--------+ + | Tobacco Use | Types | Packs/Day | Years | Date | | | | | Used | | + + + +--------+ + | Former Smoker | Cigarettes | 1 | 50 | Quit: 12/12/1993 | + + + +--------+ + + +---+---+---+ | Smokeless Tobacco: | | | | | Never Used | | | | + +---+---+---+ + + +---------+ + | Alcohol Use | Drinks/We | oz/Week | Comments | | | ek | | | + + +---------+ + | No | | | | + + +---------+ + + + + | Sex Assigned at | Date Recorded | | | | + + + | Not on file | | + + + + + + + | Job Start Date | Occupation | Industry | + + + + | Not on file | Not on file | Not on file | + + + + + + + + | Travel History | Travel Start | Travel End | + + + + + + | No recent travel history available. | + + documented as of this encounter Functional Status + + + + | Functional Status | Response | Date of Assessment | + + + + | Are you deaf or do you have serious | No | 03/21/2017 | | difficulty hearing? | | | + + + + | Are you blind or do you have serious | No | 03/21/2017 | | difficulty seeing, even when wearing | | | | glasses? | | | + + + + | Do you have serious difficulty walking or | Yes | 03/21/2017 | | climbing stairs? (5 years old or older) | | | + + + + | Do you have difficulty dressing or bathing? | Yes | 03/21/2017 | | (5 years old or older) | | | + + + + | Because of a physical, mental, or emotional | Yes | 03/21/2017 | | condition, do you have difficulty doing | | | | errands alone such as visiting a doctor's | | | | office or shopping? [15 years old or | | | | older)] | | | + + + + + + + + | Cognitive Status | Response | Date of Assessment | + + + + | Because of a physical, mental, or emotional | Yes | 03/21/2017 | | condition, do you have serious difficulty | | | | concentrating, remembering, or making | | | | decisions? (5 years old or older) | | | + + + + documented as of this encounter Plan of Treatment +--------+---------+ + + + | Date | Type | Specialty | Care Team | Description | +--------+---------+ + + + | 12/01/ | Office | Urology | BlayneKimo, | | | 2018 | Visit | | MD David FISHMAN | | | | | | [place] | | | | | | [phone] | | | | | | | | +--------+---------+ + + + | 12/03/ | Office | Cardiology | Jillian Hurst, | | | 2018 | Visit | | [address] | | | | | | [place] | | | | | | [address] | | | | | | | | +--------+---------+ + + + + +--------+ + + | Name | Priori | Associated Diagnoses | Order Schedule | | | ty | | | + +--------+ + + | Comprehensive Metabolic Panel | Routin | Malignant neoplasm | Expected: 11/17/2018 | | | e | of overlapping | (Approximate), | | | | sites of bladder | Expires: 08/29/2019 | | | | (HCC) | | + +--------+ + + documented as of this encounter Visit Diagnoses + + | Diagnosis | + + | Malignant neoplasm of overlapping sites of bladder (HCC) - Primary Malignant neoplasm | | of other specified sites of bladder | + + documented in this encounter"
--- OUTSIDE RECORDS SUMMARY | ~2018-11-21 | XMS | Encounter Summary ---
Demographics + + + | Address | [address] | | | [place] [address] | + + + | Home Phone | | + + + | Preferred Language | Unknown | + + + | Marital Status | Single | + + + | Muslim Affiliation | Unknown | + + + | Race | Unknown | + + + | Ethnic Group | Unknown | + + + Author + + + | Author | [facility] | | | and [place] | + + + | Organization | [facility] | | | and [...] [place] | | | | | [id number] | | + + + + + Care Team Providers + +------+ + | Care Computer Science Intern Name | Role | Phone | + +------+ + | Nona Davis MD | PCP | | + +------+ + Reason for Visit + + + | Reason | Comments | + + + | Follow-up | Bladder Cancer | + + + Encounter Details +--------+---------+ + + + | Date | Type | Department | Care Team | Description | +--------+---------+ + + + | 08/27/ | Office | [facility] | Kimo Cisneros, | Malignant neoplasm | | 2019 | Visit | [address] | [address] | of bladder wall | | | | [place] | [place] | (HCC) (Primary Dx); | | | | [id number] | [id number] | Microscopic | | | | [phone] | | hematuria; CKD | | | | | | (chronic kidney | | | | | | disease) stage 2, | | | | | | GFR 60-89 ml/min | +--------+---------+ + + + Social History + + [...] + + documented as of this encounter Last Filed Vital Signs + + + + | Vital Sign | Reading | Time Taken | + + + + | Blood Pressure | 118/72 | 08/27/2018 1033 PDT | + + + + | Pulse | 50 | 08/27/2018 1033 PDT | + + + + | Temperature | - | - | + + + + | Respiratory Rate | 18 | 08/27/2018 1033 PDT | + + + + | Oxygen Saturation | - | - | + + + + | Inhaled Oxygen | - | - | | Concentration | | | + + + + | Weight | 90.9 kg (200 lb 6.4 | 08/27/20181032 PDT | | | oz) | | + + + + | Height | 172.7 cm (5' 8") | 08/27/20181032 PDT | + + + + | Body Mass Index | 30.47 | 08/27/20181032 PDT | + + + + documented in this encounter Functional Status + + + [...] + + documented as of this encounter Patient Instructions Patient Instructions Kimo Cisneros MD - 08/27/2018 10:30 PDT Understanding Bladder Cancer The urinary system includes the kidneys, ureters, bladder, and urethra. This body system ma kes, stores, and gets rid of liquid waste called urine. The two kidneys filter blood to cuong ect waste and make urine. The ureters are small tubes that carry urine from each kidney to t he bladder. The bladder is where urine is stored before it leaves the body. The urethra is t he tube urine goes through to leave the body. Bladder cancer means that certain cells in the bladder have changed in ways that aren't normal. When bladder cancer forms Cancer is a disease that causes cells to change and multiply out of control. The multiplyin g cells may form a lump of tissue (tumor). With time, the cancer cells destroy healthy tissu e. They may spread to other parts of the body. Why some cells become cancer is not always cl ear. But bladder cancer is strongly linked to cigarette smoking. The longer a person smokes and the more a person smokes, the greater that person s chances of developing bladder canc er. Types of cancer that may form Most bladder cancers are urothelial carcinomas, also called transitional cell carcinomas. T hey start in the cells that line the inside of the bladder. Bladder cancer may grow in diffe rent ways: Papillary tumors stick out from the bladder lining on a stalk. They tend to grow toward the bladder cavity, away from the bladder wall, instead of deeper into the layers of the joe dder wall. Flat tumors do not stick out from the bladder lining. These tumors are more likely than papillary tumors to grow deeper into the layers of the bladder wall. Carcinoma in situ (CIS) is a cancerous patch of flat tumor cells that is only in the inn er layer of the bladder lining and has not spread to deeper tissue. The patch may look almos t normal or may look inflamed. Each type of tumor can be present in one or more areas of the bladder, and more than one ty pe can be present at the same time. Date Last Reviewed: 07/12/201719993107-7595 [employer]. [address] [place] [address]. All righ ts reserved. This information is not intended as a substitute for professional medical care. Always follow your healthcare professional's instructions. documented in this encounter Progress Notes Kimo Cisneros MD - 08/27/2018 1030 PDTFormatting of this note might be different from th e original. HPI Fredrick Winter is a 83 y.o. male referred by Nona Davis MD RELEVANT HISTORY GATHERED FROM PRIOR OFFICE VISITS: Fredrick has stage Ta bladder cancer. Gross hematuria prompted a TURBT on 12/31/2015. He was found to have a large bladder trig one tumor, with tumor spanning across the entire trigone, barely sparing the ureteral orific es bilaterally. Pathology confirmed stage prevention specialist TCCa. He completed intravesical BCG induction therapy on approximately 03/22/2016. He most recent ly completed BCG maintenance therapy on approximately 11/06/2017. He suffered recurrence, and underwent TURBT on 08/29/2016. This demonstrated 4 tumors in t he left posterior bladder cephalad to the left ureteral orifice and a 10-12 mm tumor adjacen t to the right ureteral orifice, and an 8-9 mm tumor at the apex of the prostatic urethrai nvolving the verumontanum as well. Retrograde pyelography08/29/2016was negative. Fredrick also hasatrial fibrillation, and was initially anticoagulated withwarfarin, now with Eliquis. He has history of stroke, and still has residual weakness of the left side. He has severe COPD, for which he uses supplemental oxygen at 3-5 L/m. Fredrick was admitted on 09/13/2017with a left femur intertrochanteric fracture requiring int ramedullary rodding by Dr. Valdez. He underwent a TURBT on 01/15/2018 for a 10 mm sessile lesion at the right anterior bladder neck. This resection was difficult, due to the anterior location of the bladder neck. He was hospitalized in March 2018 with worsening hypoxia and pedal edema, and acute on c hronic congestive heart failure. His Lasix dose was increased to 60 mg twice a day from 40 mg twice a day at discharge. Today, 08/27/2018, Fredrick presents for a follow up for bladder cancer. Fredrick reports that he has done well over the past 3 months. He states that he tolerated intravesical mitomycin well, which was last administered 019. He denies any difficulty with voiding. He denies any dysuria or hematuria or increased uri nary frequency. He denies any urinary tract infections. He denies any renal colic. He states his breathing is slowly worsening, and he is now requiring 3 L of oxygen both day time and nighttime. He denies any nausea vomiting or fever or chills. He denies any changes in his bowel habit s. He does not smoke. He is once again accompanied to the office by his granddaughter. Past Medical History: Diagnosis Date AAA (abdominal aortic aneurysm) ([facility]) CAD (coronary artery disease) CHF (congestive heart failure) (HCC) COPD (chronic obstructive pulmonary disease) (HCC) Coronary artery disease CVA (cerebral vascular accident) (HCC) Dementia 2007 Diabetes mellitus (HCC) Full dentures upper & lower Gout Hematuria Hypertension Kidney stone Malignant tumor of trigone of bladder ([facility]) 12/31/2015 Obesity (BMI 30-39.9) Oxygen dependent Sleep apnea no CPAP currently Wears dentures Past Surgical History: Procedure Laterality Date ABDOMINAL AORTIC ANEURYSM REPAIR 2007 endograft COLONOSCOPY CORONARY ARTERY BYPASS GRAFT 1993 x4 FEMUR SURGERY Left 09/13/2017 Procedure: left ORIF FEMUR with Short Nail. TFNA; Surgeon: Adrian Valdez MD; Location: [facility] MA[facility] OR TURBT N/A 12/31/2015 Procedure: CYSTOSCOPY, TRANSURETHRAL RESECTION BLADDER TUMOR; Surgeon: Kimo Cisneros MD ; Location: [facility] MAIN OR TURBT Bilateral 08/29/2016 Procedure: Cystoscopy, TURBTs, TUR urethral tumor, Bilateral Retrograde Pyelogram; Surgeo n: Kimo Cisneros MD; Location: [facility] MAIN OR TURBT N/A 01/15/2018 Procedure: CYSTOSCOPY, TRANSURETHRAL RESECTION BLADDER TUMOR; Surgeon: Kimo Cisneros MD ; Location: [facility] MAIN OR Outpatient Encounter Medications as of 08/27/2018 Medication Sig Dispense Refill acetaminophen (TYLENOL) 325 mg tablet Take 2 tablets by mouth every 6 hours as needed f or Pain. 120 tablet albuterol 2.5 mg/3 mL nebulizer solution Take 3 mLs by nebulization every 4 hours as ne eded for Shortness of Breath. 360 vial albuterol-ipratropium (DUONEB) 2.5-0.5 mg/3 mL SOLN Take 3 mLs by nebulization 4 times daily (before meals and nightly). 360 mL allopurinol (ZYLOPRIM) 100 mg tablet Take 100 mg by mouth Daily. apixaban (ELIQUIS) 5 mg tablet Take 1 tablet by mouth 2 times daily. ascorbic acid (VITAMIN C) 500 mg tablet Take 500 mg by mouth Daily. atorvaSTATin (LIPITOR) 20 mg tablet Take 1 tablet by mouth nightly. 90 tablet 3 budesonide (PULMICORT) 0.5 mg/2 mL nebulizer solution Take 2 mLs by nebulization Twice Daily. 960 mL cholecalciferol (VITAMIN D-3) 1,000 units capsule Take 1,000 Units by mouth Daily. colchicine 0.6 mg tablet Take 0.6 mg by mouth 2 times daily. cyanocobalamin (VITAMIN B-12) 500 mcg tablet Take 500 mcg by mouth Daily. For memory an d mood divalproex (DEPAKOTE) [address] tablet Take 750 mg by mouth nightly. For mood donepezil (ARICEPT) 10 MG tablet Take 10 mg by mouth nightly. ferrous sulfate 325 mg tablet Take 325 mg by mouth daily (with breakfast). FLUoxetine (PROZAC) 20 mg capsule Take 20 mg by mouth Daily. furosemide (LASIX) 20 mg tablet Take 4 tablets by mouth 2 times daily. 720 tablet 11 Incontinence Supply Disposable (DEPEND UNDERGARMENTS) MISC 1 each by Does not apply rou te every hour as needed. 90 each 11 isosorbide mononitrate (IMDUR) 60 mg ER tablet Take 1 tablet by mouth Daily. 30 tablet levothyroxine (SYNTHROID) 112 mcg tablet Take 224 mcg by mouth every morning (before br eakfast). lisinopril (PRINIVIL, ZESTRIL) 20 mg tablet Take 1 tablet by mouth 2 times daily. 60 ta blet 0 metoprolol succinate (TOPROL-XL) 50 mg 24 hr tablet Take 25 mg by mouth every evening. nitroglycerin (NITROSTAT) 0.[address] 0.4 mg under the tongue every 5 minute s as needed for Chest pain. Up to 3 doses Patterson-3 Fatty Acids (OMEGA-3 FISH OIL) 1000 MG CAPS Take 1,000 mg by mouth Daily. omeprazole (PRILOSEC) 20 mg capsule Take 20 mg by mouth every morning (before breakfast ). oxygen Inhale 3 L into the lungs continuous. Uses only at bedtime potassium chloride (KLOR-CON) 10 MEQ ER tablet Take 20 mEq by mouth 2 times daily. Take s 2 tables twice a day 90 tablet UNABLE TO FIND Med Name: Steffanyroseannjorge Deep Blue Polyphenol Complex Caps Sig: Take 1 capsule by mouth every morning for pain No facility-administered encounter medications on file as of 08/27/2018. No Known Allergies Family History Problem Relation Age of Onset Other (see comment) Mother "blood clot" Other (see comment) Father "blood clot" Social History Socioeconomic History Marital status: Single Spouse name: Not on file Number of children: Not on file Years of education: Not on file Highest education level: Not on file Tobacco Use Smoking status: Former Smoker Packs/day: 1.00 Years: 50.00 Pack years: 50.00 Types: Cigarettes Last attempt to quit: 12/12/1993 Years since quittin.7 Smokeless tobacco: Never Used Substance and Sexual Activity Alcohol use: No Drug use: No PHYSICAL EXAM Vitals: BP 118/72 | Pulse 50 | Resp 18 | Ht 1.727 m (5' 8") | Wt 90.9 kg (200 lb 6.4 oz ) | BMI 30.47 kg/m General: Awake, alert, in no acute distress. Speech is fluent. Elderly in appearance. Ap pears chronically ill.. Lungs: Normal respiratory effort at rest, mildly tachypneic with exertion. Chest: No rib or bony tenderness. Back: No CVA tenderness. Abdomen: Soft, nontender, nondistended, rotund, no hepatosplenomegaly. No masses. No guar ding; benign. Bladder nondistended. No flank tenderness. Extremities: 1-2+ ankle edema bilaterally. Neuro: Awake, alert, oriented x3. Abnormal station and gait. Psychiatric: Mood and affect are normal. Normal judgment. Skin: Warm and dry, no erythematous rash. Groin: No mass. No lymphadenopathy. Genitalia: No penile lesion. Normal in appearance. Penis is not circumcised and mildly phi motic. Scrotum is supple and nonerythematous with benign contents. No testicular or epidid ymal mass, nodule, lesion, swelling, or tenderness. Procedure: cystoscopy I discussed with Fredrick the indications for cystoscopy and the risks, benefits, and alterna tives of cystoscopy. Alternatives include doing nothing or seeking a second opinion. Risks i nclude but are not limited to bleeding, pain, infection, failure of the procedure, need for additional procedures, inherent risks of any surgical procedure and anesthesia. After obtaining informed consent, and performing an appropriate time out, Fredrick was preppe d and draped in a sterile fashion. Two percent xylocaine was used as a topical anesthetic. The flexible cystoscope was introduced into the urethra and into the bladder. The bladder w as systematically surveyed and investigated and was found to demonstrate a small calculus ad herent to the bladder mucosa on the right lateral wall, just cephalad to the right ureteral orifice. Additionally, there is a small papillary lesion measuring 4 mm on the left lateral bladder wall, anterior and caudal to the left ureteral orifice. The ureteral orifices and trigone were otherwise normal in appearance. There was clear efflux of urine emanating from each ureteral orifice. The cystoscope was retroflexed and the bladder neck region was norm al in appearance, without any tumors or stone. I then placed the Bugbee electrode on the left lateral bladder wall tumor, and this lesion was completely fulgurated. I then monitored the bladder for an additional 2 minutes, and sa w no bleeding. The cystoscope was slowly withdrawn and the prostate demonstrates moderate trilobar hypertr ophy. The anterior urethra is normal in appearance. The cystoscope is withdrawn. Fredrick tolerated the procedure well. There were no complicatio ns. To summarize, the cystoscopic exam demonstrated a small 4 mm papillary tumor on the left la teral bladder wall. DIAGNOSTIC DATA: Lab Results Component Value Date CREA 1.13 03/25/2018 BUN 29 (H) 03/25/2018 NA 137 03/25/2018 K 3.5 03/25/2018 CL 88 (L) 03/25/2018 CO2 38 (H) 03/25/2018 Lab Results Component Value Date CALCIUM 8.5 03/25/2018 Lab Results Component Value Date ALT 29 03/20/2018 AST 35 03/20/2018 ALKPHOS 149 (H) 03/20/2018 BILITOT 0.9 03/20/2018 Lab Results Component Value Date WBC 5.9 03/25/2018 HGB 9.7 (L) 03/25/2018 HCT 31.3 (L) 03/25/2018 MCV 83.0 03/25/2018 PLT 203 03/25/2018 Lab Results Component Value Date CLARITYUA Clear 06/24/2018 BILIRUBINUA Negative 06/24/2018 NITRITEUA Negative 06/24/2018 UROBILIUA Normal 06/24/2018 WBCUA 0-2 08/27/2018 RBCUA 10-15 (A) 08/27/2018 SQUAMEPIUA 2-5 (A) 08/27/2018 BACTERIAUA Negative 08/27/2018 Lab Results Component Value Date COLORPOC Dark Yellow (A) 08/27/2018 CLARITYU Clear 08/27/2018 GLUCOSEPOC Negative 08/27/2018 BILIPOC Negative 08/27/2018 SG 1.015 08/27/2018 RBCUR Trace Intact (A) 08/27/2018 PHUAPOC 7.5 08/27/2018 PROTEINPOC 100 mg/dL (A) 08/27/2018 UROBILINOGEN 2.0 E.U./dL (A) 08/27/2018 NITRITEPOC Negative 08/27/2018 LEUKOCYTESUR Negative 08/27/2018 IMPRESSION: 1. 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 Initial tumor resected 12/31/19 16, followed by repeat TURBT on 08/29/2016. A right anterior bladder neck lesion was resecte d 01/15/2018; a 4 mm tumor was fulgurated on the left lateral bladder wall in the office on . 2. Stage T1/T2 prostatic urethral carcinoma. Tumor was present at the left apex adjacen t to the verumontanum. No visible sign of recurrence. 3. Small 2-3 mm bladder stone, right bladder wall. This is adherent to bladder mucosa. 4. Bilateral renal cysts.(Bosniak category 1 and 2) 5. Chronic kidney disease, stage 2. No hydronephrosis on ultrasound imaging.GFR 03/14 improved to >60. 6. O2 dependent COPD. He uses O2 via nasal cannula at 3 L/min, now both daytime and nig httime. 7. Dementia. 8. Coronary artery disease. 9. Cerebrovascular disease with history of CVA and residual left-sided weakness. 10. Abdominal aortic aneurysm. 11. Sleep apnea. 12. Diabetes mellitus. 13. Urinary incontinence. He wears a pad at night.Likely due to a neurogenic bladder related to prior stroke. 14. Chronic anticoagulation with Eliquis. 15. Atrial fibrillation. 16. Chronic anemia. 17. Respiratory failure. PLAN: Fredrick last received intravesical mitomycin on ~06/26/2018. He will be due for repeat intra vesical mitomycin therapy in December 2018. Fredrick will follow-up for repeat surveillance cystoscopy in 3 months. He will have a repea t urinalysis and urine cytology and CMP performed prior to his follow-up visit. He will fol low-up here sooner if any difficulty should arise in interim. Fredrick will continue his regular and customary care and followup with his primary care prov ider. I asked Fredrick to notify me immediately if he should experience any difficulties with voidi ng or if he has any questions or concerns or any problems whatsoever. This document was generated in part using voice recognition software. Frequent wrong word or sound-alike substitutions may have occurred due to the inherent limitations of the voice recognition software. Although I have attempted to edit the content, I have not thoroughly proofread this note, and intermediate designer errors are likely to occur. CC: Nona Davis MD documented in this encou nter Plan of Treatment +--------+---------+ + + + | Date | Type | Specialty | Care Team | Description | +--------+---------+ + + + | 12/01/ | Office | Urology | Kimo Cisneros, | | | 2018 | Visit | | [facility] | | | | | | [place] | | | | | | [phone] | | | | | | | | +--------+---------+ + + + | 12/03/ | Office | Cardiology | Jillian Hurst, | | | 2018 | Visit | | [address] [place] | | | | | | [place] | | | | | | [id number] | | | | | | | | +--------+---------+ + + + documented as of this encounter Procedures + +--------+ + + + | Procedure Name | Priori | Date/Time | Associated Diagnosis | Comments | | | ty | | | | + +--------+ + + + | URINALYSIS, | Routin | 08/27/2018 | Microscopic | Results for this | | MICROSCOPIC ONLY, | e | 10:38 PDT | hematuria | procedure are in the | | WITH CULTURE IF | | | | results section. | | INDICATED | | | | | + +--------+ + + + | POCT URINALYSIS, | Routin | 08/27/2018 | Microscopic | Results for this | | AUTO WITH CONF | e | 10:37 PDT | hematuria | procedure are in the | | | | | | results section. | + +--------+ + + + documented in this encounter Results Urinalysis, Microscopic Only, with Culture if Indicated (08/27/2018 10:38 PDT) + + + + + + | Component | Value | Ref Range | Performed | Pathologist | | | | | At | Signature | + + + + + + | WBC UA | 0-2 | 0 - 2 /HPF | [facility] | | | | [facility] | | | | | [facility] | | + + + + + + | RBC UA | 10-15 (A) | 0 - 2 /HPF | [facility] | | | | [facility] | [facility] | | [facility] | | | | | | [facility] | | + + + + + + | SQUAMOUS | 2-5 (A) | 0 - 2 /LPF | [facility] | | | [facility] | | | [facility] | [facility] | | | | | [facility] - | | | | | | [facility]ATORY | | + + + + + + | BACTERIA UA | Negative | Negative /HPF | [facility] | | | | | [facility] | | | | | [facility] | | | | [facility] | | | | | | [facility]ORY | | + + + + + + | HYALINE | 0-2 | 0 - 2 /LPF | [facility] | | | [facility] | | | [facility] | | | | | [facility] | | | | | [facility] - | | | | | | [facility]ATORY | | + + + + + + + + | Specimen | + + | Urine | + + + + + + + | Performing | Address | City/State/Zipcode | Phone Number | | Organization | | | | + + + + + | [facility] | [address] | [place] | [phone] | | [facility] | | [address] | | | - LABORATORY | | | | + + + + + POCT Urinalysis (08/27/2018 10:37 PDT) + + + + + + | Component | Value | Ref Range | Performed | Pathologist | | | | | At | Signature | + + + + + + | Color, UA, | Dark Yellow (A) | Yellow, Light | | | | POC | | Yellow | | | + + + + + + | Clarity, | Clear | | | | | UA, POC | | | | | + + + + + + | Glucose, | Negative | Negative | | | | UA, POC | | | | | + + + + + + | Bilirubin, | Negative | Negative | | | | UA, POC | | | | | + + + + + + | Ketones, | Negative | Negative, 100 | | | | UA, POC | | mg/dL | | | + + + + + + | Specific | 1.015 | 1.001 - 1.030 | | | | [place], | | | | | | UA, POC | | | | | + + + + + + | Blood, UA, | Trace Intact (A) | Negative | | | | POC | | | | | + + + + + + | pH, UA, POC | 7.5 | 5.0, 6.0, 7.0, | | | | | | 8.0, 5.5, 6.5, | | | | | | 7.5 | | | + + + + + + | Protein, | 100 mg/dL (A) | Negative | | | | UA, POC | | | | | + + + + + + | Urobilinoge | 2.0 E.U./dL (A) | 0.2, Negative, | | | | n, UA, POC | | Normal, < 0.2 | | | | | | mg/dL, 1 mg/dL, | | | | | | < 0.2 E.U./dl, | | | | | | 1.0 E.U./dL, | | | | | | 0.2 mg/dL | | | + + + + + + | Nitrite, | Negative | Negative | | | | UA, POC | | | | | + + + + + + | Leukocyte | Negative | Negative | | | | Esterase, | | | | | | UA, POC | | | | | + + + + + + | Reducing | | | | | | Substances, | | | | | | Urine | | | | | + + + + + + | Ictotest | | Negative | | | + + + + + + | Remark | | | | | + + + + + + + + | Specimen | + + | Urine | + + documented in this encounter Visit Diagnoses + + | Diagnosis | + + | Malignant neoplasm of bladder wall (HCC) - Primary Malignant neoplasm of bladder, | | part unspecified | + + | Microscopic hematuria | + + | CKD (chronic kidney disease) stage 2, GFR 60-89 ml/min Chronic kidney disease, Stage | | II (mild) | + + documented in this encounter
--- OUTSIDE RECORDS SUMMARY | ~2018-11-21 | XMS | Clinical Summary ---
Demographics + + + | Address | [address] | | | [place] [address] | + + + | Home Phone | | + + + | Preferred Language | Unknown | + + + | Marital Status | Single | + + + | Yazidi Affiliation | Unknown | + + + | Race | Unknown | + + + | Ethnic Group | Unknown | + + + Author + + + | Author | [facility] | | | and [place] | + + + | Organization | [facility] | | [...] [place] | | | | | [address] | | + + + + + Care Team Providers + +------+ + | Care Driver Courier Name | Role | Phone | + +------+ + | Nona Davis MD | PCP | | + +------+ + Allergies No Known Allergies Medications + + + +---------+------+------+-------+ | Medication | Sig | Dispensed | Refills | Star | End | Statu | | | | | | t | Date | s | | | | | | Date | | | + + + +---------+------+------+-------+ | Dayton-3 Fatty | Take 1,000 mg by | | 0 | | | Activ | | Acids (OMEGA-3 FISH | mouth Daily. | | | | | e | | OIL) 1000 MG CAPS | | | | | | | + + + +---------+------+------+-------+ | cholecalciferol | Take 1,000 Units by | | 0 | | | Activ | | (VITAMIN D-3) 1,000 | mouth Daily. | | | | | e | | units capsule | | | | | | | + + + +---------+------+------+-------+ | omeprazole | Take 20 mg by mouth | | 0 | | | Activ | | (PRILOSEC) 20 mg | every morning | | | | | e | | capsule | (before breakfast). | | | | | | + + + +---------+------+------+-------+ | allopurinol | Take 100 mg by mouth | | 0 | | | Activ | | (ZYLOPRIM) 100 mg | Daily. | | | | | e | | tablet | | | | | | | + + + +---------+------+------+-------+ | FLUoxetine | Take 20 mg by mouth | | 0 | | | Activ | | (PROZAC) 20 mg | Daily. | | | | | e | | capsule | | | | | | | + + + +---------+------+------+-------+ | divalproex | Take 750 mg by mouth | | 0 | | | Activ | | (DEPAKOTE) [address] | nightly. For mood | | | | | e | | tablet | | | | | | | + + + +---------+------+------+-------+ | colchicine 0.6 mg | Take 0.6 mg by mouth | | 0 | | | Activ | | tablet | 2 times daily. | | | | | e | + + + +---------+------+------+-------+ | Incontinence | 1 each by Does not | 90 each | 11 | 09/0 | | Activ | | Supply Disposable | apply route every | | | 8/20 | | e | | (DEPEND | hour as needed. | | | 17 | | | | UNDERGARMENTS) MISC | | | | | | | + + + +---------+------+------+-------+ | cyanocobalamin | Take 500 mcg by | | 0 | | | Activ | | (VITAMIN B-12) 500 | mouth Daily. For | | | | | e | | mcg tablet | memory and mood | | | | | | + + + +---------+------+------+-------+ | ascorbic acid | Take 500 mg by mouth | | 0 | | | Activ | | (VITAMIN C) 500 mg | Daily. | | | | | e | | tablet | | | | | | | + + + +---------+------+------+-------+ | potassium chloride | Take 20 mEq by mouth | 90 | 0 | 02/0 | | Activ | | (KLOR-CON) 10 MEQ | 2 times daily. | tablet | | 8/20 | | e | | ER tablet | Takes 2 tables twice | | | 18 | | | | | a day | | | | | | + + + +---------+------+------+-------+ | levothyroxine | Take 224 mcg by | | 0 | | | Activ | | (SYNTHROID) 112 mcg | mouth every morning | | | | | e | | tablet | (before breakfast). | | | | | | + + + +---------+------+------+-------+ | atorvaSTATin | Take 1 tablet by | 90 | 3 | 06/0 | | Activ | | (LIPITOR) 20 mg | mouth nightly. | tablet | | 5/20 | | e | | tablet | | | | 18 | | | + + + +---------+------+------+-------+ | nitroglycerin | Place 0.4 mg under | | 0 | 05/0 | | Activ | | (NITROSTAT) 0.4 mg | the tongue every 5 | | | 8/20 | | e | | SL tablet | minutes as needed | | | 18 | | | | | for Chest pain. Up | | | | | | | | to 3 doses | | | | | | + + + +---------+------+------+-------+ | donepezil | Take 10 mg by mouth | | 0 | | | Activ | | (ARICEPT) 10 MG | nightly. | | | | | e | | tablet | | | | | | | + + + +---------+------+------+-------+ | oxygen | Inhale 3 L into the | | 0 | | | Activ | | | lungs continuous. | | | | | e | | | Uses only at bedtime | | | | | | + + + +---------+------+------+-------+ | | Take 3 mLs by | 360 mL | 0 | 08/0 | | Activ | | albuterol-ipratropiu | nebulization 4 times | | | 7/20 | | e | | m (DUONEB) 2.5-0.5 | daily (before meals | | | 18 | | | | mg/3 mL SOLN | and nightly). | | | | | | + + + +---------+------+------+-------+ | isosorbide | Take 1 tablet by | 30 | 0 | 08/0 | | Activ | | mononitrate (IMDUR) | mouth Daily. | tablet | | 7/20 | | e | | 60 mg ER tablet | | | | 18 | | | + + + +---------+------+------+-------+ | acetaminophen | Take 2 tablets by | 120 | 0 | 08/0 | | Activ | | (TYLENOL) 325 mg | mouth every 6 hours | tablet | | 7/20 | | e | | tablet | as needed for Pain. | | | 18 | | | + + + +---------+------+------+-------+ | albuterol 2.5 mg/3 | Take 3 mLs by | 360 | 0 | 08/0 | | Activ | | mL nebulizer | nebulization every 4 | vial | | 7/20 | | e | | solution | hours as needed for | | | 18 | | | | | Shortness of | | | | | | | | Breath. | | | | | | + + + +---------+------+------+-------+ | budesonide | Take 2 mLs by | 960 mL | 0 | 08/0 | | Activ | | (PULMICORT) 0.5 mg/2 | nebulization Twice | | | 720 | | e | | mL nebulizer | Daily. | | | 18 | | | | solution | | | | | | | + + + +---------+------+------+-------+ | apixaban (ELIQUIS) | Take 1 tablet by | | 0 | 08/0 | | Activ | | 5 mg tablet | mouth 2 times daily. | | | 8/20 | | e | | | | | | 18 | | | + + + +---------+------+------+-------+ | ferrous sulfate | Take 325 mg by mouth | | 0 | | | Activ | | 325 mg tablet | daily (with | | | | | e | | | breakfast). | | | | | | + + + +---------+------+------+-------+ | UNABLE TO FIND | Med Name: Maldonadoa | | 0 | | | Activ | | | Deep Blue Polyphenol | | | | | e | | | Complex CapsSig: | | | | | | | | Take 1 capsule by | | | | | | | | mouth every morning | | | | | | | | for pain | | | | | | + + + +---------+------+------+-------+ | metoprolol | Take 25 mg by mouth | | 0 | | | Activ | | succinate | every evening. | | | | | e | | (TOPROL-XL) 50 mg 24 | | | | | | | | hr tablet | | | | | | | + + + +---------+------+------+-------+ | lisinopril | Take 1 tablet by | 60 | 0 | 02/1 | | Activ | | (PRINIVIL, ZESTRIL) | mouth 2 times daily. | tablet | | 3/20 | | e | | 20 mg tablet | | | | 19 | | | + + + +---------+------+------+-------+ | furosemide (LASIX) | Take 4 tablets by | 720 | 11 | 04 | | Activ | | 20 mg | mouth 2 times daily. | tablet | | 07/31 | | e | | tabletIndications: | | | | 19 | | | | Paroxysmal atrial | | | | | | | | fibrillation (HCC), | | | | | | | | Coronary artery | | | | | | | | disease involving | | | | | | | | [place] coronary | | | | | | | | artery of [place] | | | | | | | | heart with angina | | | | | | | | pectoris (HCC), | | | | | | | | Congestive heart | | | | | | | | failure, unspecified | | | | | | | | HF chronicity, | | | | | | | | unspecified heart | | | | | | | | failure type (HCC) | | | | | | | + + + +---------+------+------+-------+ Active Problems + + + | Problem | Noted Date | + + + | Cough | 06/14/2017 | + + + | H. influenzae infection | 06/14/2017 | + + + | COPD with acute lower respiratory infection | 06/14/2017 | + + + | Chronic respiratory failure with hypoxia, on home O2 therapy | 06/14/2017 | + + + | Chronic anticoagulation | 06/14/2017 | + + + | ALICIA (iron deficiency anemia) | 06/14/2017 | + + + | Paroxysmal atrial fibrillation | 06/12/2017 | + + + + + | Overview: Mobile cardiac telemetry from 09/17 until 09/26/2017. | | Baseline EKG shows atrial fibrillation with heart rate ranging | | from 64-91 bpm, occasional PVCs, average heart rate of 85 bpm. | | Echocardiogram 09/15/2015 shows technically difficult study with | | suboptimal views, overall left ventricular systolic function is | | normal with, an EF between 55 - 60 %, there is mild concentric | | left ventricular hypertrophy, wall motion abnormalities | | suggestive of CAD noted, basal inferior wall thinning and | | akinesis noted. Lamont Tinajero MD.Event monitor | | 10/10/15-10/12/15 shows normal sinus rhythm, occasional PVC, | | longest R-R interval 21 seconds. Terrell Sue MD.Echocardiogram | | 03/12/2017 shows mild biatrial dilatation, mild left ventricular | | dilatation with a mild to moderate eccentric left ventricular | | hypertrophy, left ventricular systolic function is preserved, | | LVEF is 55-60%, grade 1 left ventricular diastolic dysfunction, | | mildly thickened and calcified mitral valve with mild mitral | | valve regurgitation, mildly thickened and calcified trileaflet | | aortic valve with adequate opening, normal right-sided pressure, | | normal IVC with normal respiratory collapse.Echocardiogram | | 04/15/2017 shows overall left ventricular systolic function is | | normal with, an EF between 55 - 60 %, pseudonormal LV diastolic | | filling pattern, consistent with elevated LA pressure and | | moderate dysfunction (Grade II), mid to basal inferior akinesia | | with thinning is noted, consistent with a prior myocardial | | infarction and aneurysm formation, there is a questionable small | | mobile thrombus within this segment, right ventricle is mildly | | enlarged, left atrium is markedly enlarged, right atrium is | | markedly enlarged, ascending aorta is dilated measuring up to | | 4.3cm, no significant valvular abnormalities are noted. Melvin | | MD Axel. 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 12/31/15 [facility] Bladder tumor: | | - High-grade papillary urothelial carcinoma, with extensive | | crush/cautery artifact. 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[place] heart with angina pectoris | | + + + | Malignant tumor of trigone of bladder | 12/31/2015 | + + + | Hematuria, gross | 12/30/2015 | + + + | CKD (chronic kidney disease) stage 3, GFR 30-59 ml/min | 12/30/2015 | + + + | Type 2 diabetes mellitus with complication | 12/30/2015 | + + + | Pulmonary emphysema | 12/30/2015 | + + + | Sleep apnea | 12/30/2015 | + + + | CVA (cerebral vascular accident) | 12/30/2015 | + + + | Essential hypertension | 12/30/2015 | + + + | Chronic gout | 12/30/2015 | + + + | Memory deficit | 12/30/2015 | + + + | Anxiety | 12/30/2015 | + + + | Prostate hyperplasia with urinary obstruction | 12/30/2015 | + + + | Dementia | 02/11/2007 | + + + | Hyperlipidemia, mixed | | + + + | Hypothyroidism | | + + + Resolved Problems + + + + | Problem | Noted | Resolved | | | Date | Date | + + + + | Cellulitis of right lower extremity | 03/26/19 | | | | 19 | 9 | + + + + | Acute diastolic congestive heart failure | 03/20/19 | | | | 19 | 9 | + + + + Encounters +--------+ + + + + | Date | Type | Specialty | Care Team | Description | +--------+ + + + + | 08/28/ | Orders Only | Urology | Kimo Cisneros, | Malignant neoplasm | | 2018 | | | MD | of overlapping sites | | | | | | of bladder (HCC) | | | | | | (Primary Dx) | +--------+ + + + + | 08/27/ | Office | Urology | Kimo Cisneros, | Malignant neoplasm | | 2018 | Visit | | MD | of bladder wall | | | | | | (HCC) (Primary Dx); | | | | | | Microscopic | | | | | | hematuria; CKD | | | | | | (chronic kidney | | | | | | disease) stage 2, | | | | | | GFR 60-89 ml/min | +--------+ + + + + from Last 3 Months Immunizations + + + + | Name | Dates Previously Given | Next Due | + + + + | INFLUENZA, | 11/30/2015 | | | UNSPECIFIED | | | | FORMULATION | | | + + + + | TD PF (5 LF TETANUS) | 05/24/2018 | | | (ADOL/ADULT) | | | + + + + Family History + + +------+ + | Medical History | Relation | Name | Comments | + + +------+ + | Other (see comment) | Father | | "blood clot" | + + +------+ + | Other (see comment) | Mother | | "blood clot" | + + +------+ + + +------+ + + | Relation | Name | Status | Comments | + +------+ + + | Father | | | Brain blood clot | + +------+ + + | Mother | | | Old Age | + +------+ + + Social History + + + [...] recent travel history available. | + + Last Filed Vital Signs + + + + | Vital Sign | Reading | Time Taken | + + + + | Blood Pressure | 118/72 | 08/27/2018 1033 PDT | + + + + | Pulse | 50 | 08/27/20181032 PDT | + + + + | Temperature | 36.7 C (98.1 F) | 03/26/2018726 PST | + + + + | Respiratory Rate | 18 | 08/27/20181032 PDT | + + + + | Oxygen Saturation | 93% | 03/26/2018809 PST | + + + + | Inhaled Oxygen | - | - | | Concentration | | | + + + + | Weight | 90.9 kg (200 lb 6.4 | 08/27/20181032 PDT | | | oz) | | + + + + | Height | 172.7 cm (5' 8") | 08/27/2018 1033 PDT | + + + + | Body Mass Index | 30.47 | 08/27/2018 1033 PDT | + + + + Plan of Treatment +--------+---------+ + + + | Date | Type | Specialty | Care Team | Description | +--------+---------+ + + + | 12/01/ | Office | Urology | Kimo Cisneros, | | | 2018 | Visit | | MD [facility] | | | | | | [place] | | | | | | [address] | | | | | | | | +--------+---------+ + + + | 12/03/ | Office | Cardiology | Jillian Hurst, | | | 2019 | Visit | | [facility] [address] | | | | | | [place] | | | | | | [address] | | | | | | | | +--------+---------+ + + + + + + + + | Health Maintenance | Due Date | Last Done | Comments | + + + + + | Diabetic Eye Exam | | | | | | 2 | | | + + + + + | Diabetic Foot Exam | | | | | | 2 | | | + + + + + | Vaccine: Zoster (1 | | | | | of 2) | 4 | | | + + + + + | Vaccine: | | | | | Pneumococcal 65+ | 9 | | | | High/Highest Risk (1 | | | | | of 2 - PCV13) | | | | + + + + + | Adult Annual | | | | | Wellness Visit | 6 | | | + + + + + | Hemoglobin A1c | | 08/01/2016 | | | Screening | 7 | | | + + + + + | Vaccine: | | 05/24/2018 | | | Dtap/Tdap/Td (1 - | 9 | | | | Tdap) | | | | + + + + + | Vaccine: Influenza | | 11/30/2015 | | | (#1) | 9 | | | + + + + + Implants + +--------+--------+ +--------+--------+--------+ | Implanted | Type | Area | Manufacture | Device | Shelf | Model | | | | | r | | Expira | / | | | | | | Identi | tion | Serial | | | | | | fier | Date | / Lot | + +--------+--------+ +--------+--------+--------+ | Imp Blade Hlcl Tfna 115mm | Generi | Left: | JJHCS DEPUY | | 07/11/ | 04.038 | | Strl - [id number]: | c | Hip | SYNTHES - | | 2025 | .315S | | Qty: 1 on 09/13/2017 by | | | SYNT | | | / | | Adrian Valdez MD | | | | | | /[id number] | | | | | | | | 62 | + +--------+--------+ +--------+--------+--------+ | Nail Fem Tfna St 125d [id number] | Nail | Left: | [employer] DEPUY | | 08/10/ | 04.037 | | L - [id number]: Qty: | | Hip | SYNTHES - | | 2025 | .215S | | 1 on 09/13/2017 by José Miguel, | | | SYNT | | | / | | Adrian Lama MD | | | | | | /[id number] | | | | | | | | 88 | + +--------+--------+ +--------+--------+--------+ | Screw Im Gabriela Slf-Tp F/T | Screw | Left: | JJHCS DEPUY | | | 04.005 | | 5x38mm - [id number]: | | Hip | SYNTHES - | | | .528 / | | Qty: 1 on 09/13/2017 by | | | SYNT | | | / | | Adrian Valdez MD | | | | | | | + +--------+--------+ +--------+--------+--------+ + +--------+--------+ +--------+--------+--------+ | Explanted | Type | Area | Manufacture | Device | Shelf | Model | | | | | r | | Expira | / | | | | | | Identi | tion | Serial | | | | | | fier | Date | / Lot | + +--------+--------+ +--------+--------+--------+ | Imp Blade Hlcl Tfna 125mm | Generi | Left: | [employer] DEPUY | | 09/10/ | 04.038 | | Strl - [id number]: | c | Hip | SYNTHES - | | 2024 | .325S | | Qty: 1Explanted: Qty: 1 on | | | SYNT | | | / | | 09/13/2017 by Adrian Valdez | | | | | | /[id number] | | E, MD | | | | | | 72 | + +--------+--------+ +--------+--------+--------+ Procedures + +--------+ + + + | [...] section. | + +--------+ + + + from Last 3 Months Results Urinalysis, Microscopic Only, with Culture if [...] ST. | [address] | [place] | [phone] | | [facility] | | [id number] | | | - LABORATORY | | [...] 1.001 - 1.030 | | | | [place], | | | | | | UA, [...] + + | Urine | + + from Last 3 Months Insurance + +--------+ +--------+ +---------+--------+ | Payer | Benefi | Subscriber | Effect | Phone | Address | Type | | | t Plan | ID | lucita | | | | | | / | | Dates | | | | | | Group | | | | | | + +--------+ +--------+ +---------+--------+ | [employer] [place] | [id number] | 09/12/19 | | | Indemn | | | CHOICE | | 16-Pre | | | ity | | | PC3 | | sent | | | | + +--------+ +--------+ +---------+--------+ | [employer] | [employer] | [id number] | 12/28/ | | | Indemn | | | NS | | 2016-P | | | ity | | | ADMIN | | resent | | | | | | [place] | | | | | | | | [place] | | | | | | + +--------+ +--------+ +---------+--------+ | MEDICARE | MEDICA | [id number] | 05/12/18 | [phone] | | Medica | | | RE | | 99-Pre | 5 | | re | | | PART A | | sent | | | | + +--------+ +--------+ +---------+--------+ + +--------+ +--------+ + + | Guarantor Name | Accoun | Relation to | Date | Phone | Billing Address | | | t Type | Patient | of | | | | | | | | | | + +--------+ +--------+ + + | Fredrick Winter | Person | Self | [birth year] | [address] | | | al/Fam | | 1936 | [phone] | [address], | | | [place] | | | [address] (Home) | [place] [address] | + +--------+ +--------+ + + Advance Directives Patient has advance care planning documents, and code status on file. For more information, please contact:[facility] [place] [address] + + + + + | Code Status | Date | Date | Comments | | | Activated | Inactivated | | + + + + + | Full Code | 03/22/2018 | 03/26/2018 | | | | 13:21 | 13:01 | | + + + + + + + + +---+ | | | | | + + + +---+ | Full Code | 03/20/2018 | 03/22/2018 | | | by default | 20:56 | 13:21 | | | - TBD | | | | + + + +---+ + + + +---+ | | | | | + + + +---+ | Full Code | 01/15/2018 | 01/15/2018 | | | | 12:45 | 16:49 | | + + + +---+ + + + +---+ | | | | | + + + +---+ | Partial | 09/15/2017 | 09/17/2017 | | | Code | 8:09 | 16:49 | | + + + +---+ + + +---+ | Rescue breathing via AMBU/Bag | Yes | | | valve mask: | | | + + +---+ | BiPAP/CPAP: | No | | + + +---+ | Intubation/mechanical | No | | | ventilation: | | | + + +---+ | Chest compressions: | Yes | | + + +---+ | Electrical shock for | No | | | resuscitation: | | | + + +---+ | ACLS/PALS/NRP Protocol Meds: | Yes | | + + +---+ | Vasopressors: | No | | + + +---+ | RN or MD to pronounce: | RN may | | | | pronounce | | + + +---+ + + + +---+ | | | | | + + + +---+ | Full Code | 09/13/2017 | 09/15/2017 | | | by default | 21:03 | 8:09 | | | - TBD | | | | + + + +---+
--- OUTSIDE RECORDS SUMMARY | 2018-11-21 11:04 | XMS ---
PreManage Notification: ROSY CERON Security Veterinary Virologist Events No recent Security Events currently on file CRITERIA MET - [facility] - 2 Visits in 30 Days CARE PROVIDERS Germain Ellsworth DO [facility] Current PHONE: Unknown Liv Turner Nurse Practitioner: 09/16/2017-Current PHONE: Unknown Dr. Colton Santiago Current PHONE: [phone] [facility] Current PHONE: [phone] Aleksandar has no Care Guidelines for this patient. Tegan VISIT COUNT (12 MO.) 1 [facility] 8 KAMILAH Connors TOTAL 9 NOTE: Visits indicate total known visits. ED/UCC VISIT TRACKING (12 MO.) 11/21/2018 11:02 [facility] TYPE: Emergency COMPLAINT: - ABD AND BACK PAIN 11/19/2018 05:09 [facility] TYPE: Emergency COMPLAINT: - SOB 10/26/2018 14:33 [facility] [place] TYPE: Emergency COMPLAINT: - ACUTE ON CHRONIC RESPIRATORY FAILURE 07/30/2018 18:07 [facility] [place] TYPE: Emergency COMPLAINT: - FALL, HEAD INJURY DIAGNOSES: - Type 2 diabetes mellitus without complications - Anxiety disorder, unspecified - Contusion of other part of head, initial encounter - Heart failure, unspecified - Hypertensive heart disease with heart failure - Unspecified atrial fibrillation - Unspecified injury of head, initial encounter - Other mcfp (current) drug therapy - Fall from chair, initial encounter - Personal history of transient ischemic attack (TIA), and cerebral infarction without residual deficits 07/26/2018 16:42 [facility] [place] TYPE: Emergency COMPLAINT: - FALL DIAGNOSES: - Type 2 diabetes mellitus without complications - Fall on same level, unspecified, initial encounter - Personal history of transient ischemic attack (TIA), and cerebral infarction without residual deficits - Other keno terminal operator (current) drug therapy - Heart failure, unspecified [...] complications - Heart failure, unspecified - Other mcfp (current) drug therapy - Personal history of transient ischemic attack (TIA), and cerebral infarction without residual deficits - Fracture of orbital floor, left side, initial encounter for closed fracture 05/12/2018 20:54 [facility] [place] TYPE: Emergency COMPLAINT: - RETAINING WATER 03/20/2018 14:46 [facility] Tiffanie KINGSLEY TYPE: Emergency DIAGNOSES: - Decreased Oxygen Level (Asymptomatic) - Low oxygen; rt foot swelling - Heart failure, unspecified - Shortness of Breath 02/14/2018 16:53 KAMILAH Valladares TYPE: Emergency COMPLAINT: - STROKE SYMPTOMS INPATIENT VISIT TRACKING (12 MO.) 10/26/2018 18:49 [facility] [place] TYPE: Medical Surgical COMPLAINT: - ACUTE ON CHRONIC RESPIRATORY FAILURE DIAGNOSES: - Unspecified mood [affective] disorder - Dementia in other diseases classified elsewhere without behavioral disturbance - exterminator helper termite (current) use of antithrombotics/antiplatelets - Acute on chronic systolic (congestive) heart failure - Panlobular emphysema - exterminator helper termite (current) use of opiate analgesic - Atherosclerotic heart disease of [place] coronary artery without angina pectoris - Personal history of nicotine dependence - Presence of aortocoronary bypass graft - Chronic atrial fibrillation - MCFP (current) use of inhaled steroids - Other mcfp (current) drug therapy - Hypothyroidism, unspecified - [...] with diabetic chronic kidney disease 05/12/2018 22:[address] [facility] [place] TYPE: Medical Surgical COMPLAINT: - HEART FAILURE DIAGNOSES: - exterminator helper termite (current) use of inhaled steroids - Unspecified dementia without behavioral disturbance - Acute on chronic diastolic (congestive) heart failure - Type 2 diabetes mellitus with diabetic chronic kidney disease - Gastro-esophageal reflux disease without esophagitis - exterminator helper termite (current) use of antithrombotics/antiplatelets - Chronic obstructive pulmonary disease, unspecified - Presence of aortocoronary bypass graft - Hypothyroidism, unspecified - Unspecified atrial fibrillation - exterminator helper termite (current) use of opiate analgesic - Hyperlipidemia, unspecified - Other keno terminal operator (current) drug therapy - Obstructive sleep apnea (adult) (pediatric) - Atherosclerotic heart disease of [place] coronary artery without angina pectoris - Hemiplegia [...] other venous thrombosis and embolism 03/20/2018 14:46 [facility] Tiffanie KINGSLEY TYPE: Surgical Services DIAGNOSES: - Acute kidney failure, unspecified - MCFP (current) use of anticoagulants - Dependence on [...] 3 (moderate) - Atherosclerotic heart disease of [place] coronary artery without angina pectoris - MCFP (current) use of anticoagulants - Personal history [...] and chronic respiratory failure with hypercapnia - exterminator helper termite (current) use of anticoagulants - Hypertensive heart and chronic kidney disease with heart failure and stage 1 through stage 4 chronic kidney disease, or unspecified chronic kidney disease - Acute and chronic respiratory failure with hypoxia - Metabolic encephalopathy - Unspecified mood [affective] disorder - Unspecified dementia without behavioral disturbance - Gout, unspecified - Atherosclerotic heart disease of [place] coronary artery without angina pectoris - Chronic [...] history of other venous thrombosis and embolism [email or web address]
[2018-11-21] MEDS ORDERED: IRON325 M1 (11:23)
--- NOTE | 2018-11-21 18:10 | NUR ---
PT ARRIVED ON THE FLOOR. HE IS VERY SEDATED. UNABLE TO GET HISTORY, INFORMATION FROM PT. O2 AT 4L VIA NC. FLEETS ENEMA GIVEN WITH MODERATE RESULTS. VOID WELL. UNABLE TO GET HISTORY.
--- NOTE | 2018-11-21 19:10 | NUR ---
BEDSIDE REPORT RECEIVED FROM OFFGOING RNCHRISTOPHER. PT RESTING IN BED, DOES NOT WAKE DURING REPORT. OFFGOING RN REPORTS PT HAS BEEN ASLEEP SINCE ARRIVING ON FLOOR. ROOM IN VIEW OF RN STATION. CALL LIGHT IN REACH.
--- NOTE | 2018-11-21 22:15 | NUR ---
GOT PT VITALS
--- NOTE | 2018-11-21 22:54 | NUR ---
MEDICAL LAB SCIENTIST AND LINOLEUM LAYER IN TO PT'S ROOM FOR POSITION CHANGE AND VS. PT DOES NOT WAKE TO VOICE, SHAKE, OR PAINFUL STIMULI. SAO2 @ 77 ON 4 LPM. RT IN ROOM, PLACES PT ON NON REBREATHER @ 15 LPM. SAO2 UP TO 94 %. NOTIFIED, ARRIVES TO FLOOR. PT'S ATTENDS CHANGED, ASSESSMENT COMPLETE. LUNG SOUNDS COARSE WITH RHONCI THROUGHOUT. HEART SOUNDS IRREGULAR. TELE # [address], HR 70-90. ABD DISTENDED. SHIVAM HOSE IN PLACE. PT DOES NOT WAKE THROUGHOUT. PT FAMILY TO ROOM. CHAIR AND TISSUES PROVIDED. WATER OFFERED, DECLINED. ROOM IN VIEW OF RN STATION. CALL LIGHT IN REACH.
--- NOTE | 2018-11-21 23:49 | NUR ---
HEAD SETTER WAS CALLED IN AFTER PT WAS UNABLE TO BE TRANSFERRED TO [facility]. FAMILY DECIDED TO GO AHEAD AND MAKE PT NO CODE AND I WAS BROUGHT IN TO HELP FAMILY. THOUGH PT'S FACESHEET SAYS THAT HE IS JAIN, HE IS SO ONLY NOMINALLY AND FAMILY IS NOT LOOKING TO BRING IN JAIN CARE AT THIS TIME. I WILL BE CALLING THE PT'S FAMILY'S MAINTAINABILITY ENGINEER TOMORROW, PER THE FAMILIES REQUEST, TO SEE IF HE IS ABLE TO COME AND VISIT. FAMILY IS SETTLED AT THIS TIME AND HAS BEEN MADE AWARE THAT THEY CAN CALL ME 24HRS IF NEEDED THROUGH THE NURSING STAFF. I PRAYED WITH THE FAMILY AT THE TIME OF MY VISIT.
--- NOTE | 2018-11-22 00:05 | NUR ---
FORM LAYER IN ROOM TO CHECK ON PT AND FAMILY. FAMILY CONTINUES TO SIT AT BEDSIDE, COFFEE AND WATER PROVIDED. PT RESTING WITH EYES CLOSED. NON REBREATHER IN PLACE AT 15 LOM. SA02 89%. PT DOES NOT WAKE WHILE WRTIER IN ROOM. FAMILY DENIES FURTHER NEEDS AT THIS TIME. CALL LIGHT IN REACH.
--- NOTE | 2018-11-22 00:15 | NUR ---
TOOK FRESH COFFEE AND CREAMER TO PTs FAMILY
--- NOTE | 2018-11-22 03:25 | NUR ---
PT ASSESSMENT COMPLETE. PT RESTING IN BED, UNRESPONSIVE DURING ASSESSMENT, TURNING, AND REPOSITIONING. NON-REBREATHER IN PLACE, O2 @ 15LPM. SA02 90% LUNG SOUNDS WITH RHONCI TO LLL, AND EXPIRATORY WHEEZE TO RLL. TELE #8, A-FIB, HR IN 100'S. PT INCONTINENT OF URINE, ATTENDS CHANGED AT THIS TIME. IVF INFUSING WNL. FAMILY SLEEPING AT BEDSIDE, DENY NEEDS AT THIS TIME. CALL LIGHT IN REACH, ROOM IN VIEW OF RN STATION.
--- NOTE | 2018-11-22 06:20 | NUR ---
PT TURNED AND REPOSITIONED. ATTENDS DRY AT THIS TIME. PT REMAINS UNRESPONSIVE. FAMILY PRESENT AT BEDSIDE, DECLINE VITAL SIGNS AT THIS TIME. CONTINUOUS PULSE OX REMAINS IN PLACE, FAMILY STATES THAT THEY WOULD LIKE IT LEFT ON. FAMILY DENIES FURTHER NEEDS AT THIS TIME. CALL LIGHT WITHIN REACH.
--- NOTE | 2018-11-22 07:57 | NUR ---
MD NOTIFIED VIA PHONE CALL, OF LOW HR ON TELE, LOW SA02 @ 58%. TELE DC'D PER MD AT THIS TIME. FAMILY PRESENT AT BEDSIDE, DAY SHIFT RN PRESENT IN ROOM.
--- NOTE | 2018-11-22 08:02 | NUR ---
RN IN ROOM. TELE SHOWED HR OF LOW 30S. MD CALLED. TELE DC PER MD. RN IN ROOM, TALKED TO FAMILY. EDUCATED ON END OF LIFE CARE, WHAT TO EXPECT, WHAT WILL HAPPEN. ANSWERED ALL QUESTIONS. PER FAMILY REQUEST, DEVENDRA CPOX. FAMILY IS CONTACTING HOME IN [place] WHO WILL HANDLE ALL FINAL ARRIGEMENTS. COMFORT CARE CART ORDERED FROM KITCHEN.
--- NOTE | 2018-11-22 08:52 | NUR ---
COMFORT CARE CART BROUGHT IN. RN CHECKED ON FAMILY. THEY ARE MAKING CALLS.
--- NOTE | 2018-11-22 09:04 | NUR ---
PASTOR [place] IN ROOM.
--- NOTE | 2018-11-22 10:13 | NUR ---
PT PASSED EARLY THIS MORNING AND I WAS CALLED IN. PT WAS SENT TO [facility] AND WILL BE TRANSFERRED TO A HOME IN [place].
== END 2018-11-22 10:05 ==
LOC: ED 11:01 → MS 11:03
PROVIDERS: ADMIT Internal Medicine
DX: I71.3 Abdominal aortic aneurysm, ruptured (principal); F03.90 Unspecified dementia, unspecified severity, without behavioral disturbance, psychotic disturbance, mood disturbance, and anxiety; I69.354 Hemiplegia and hemiparesis following cerebral infarction affecting left non-dominant side; I11.0 Hypertensive heart disease with heart failure; I50.9 Heart failure, unspecified; E11.51 Type 2 diabetes mellitus with diabetic peripheral angiopathy without gangrene; M10.9 Gout, unspecified; F41.9 Anxiety disorder, unspecified; J44.9 Chronic obstructive pulmonary disease, unspecified; I48.91 Unspecified atrial fibrillation; I25.10 Atherosclerotic heart disease of native coronary artery without angina pectoris; R57.8 Other shock; J96.00 Acute respiratory failure, unspecified whether with hypoxia or hypercapnia; R09.02 Hypoxemia; N28.9 Disorder of kidney and ureter, unspecified; I71.6 Thoracoabdominal aortic aneurysm, without rupture; Z99.81 Dependence on supplemental oxygen; Z79.01 Long term (current) use of anticoagulants; Z79.51 Long term (current) use of inhaled steroids; Z79.899 Other long term (current) drug therapy; Z51.5 Encounter for palliative care; Z66 Do not resuscitate; Z95.1 Presence of aortocoronary bypass graft; Z87.891 Personal history of nicotine dependence
CPT/HCPCS: 74177; 80053; 81001; 83690; 85025; 86850; 86900; 86901; 86920; 87077; 87088; 87186; 99285-25; G0378; J2060; J2405; J7030; J7120; Q9967